=== PATIENT | male | born 1935 | race Caucasian/White ===

== ENCOUNTER → 2016-12-12 | Outpatient (REF) | payer MEDICARE, OTHER ==
[2016-12-12 17:50] LABS: ANION GAP 8 MEQ/L (8-16); BLOOD UREA NITROGEN 16 MG/DL (7-18); CALCIUM LEVEL 9.4 MG/DL (8.8-10.2); CARBON DIOXIDE LEVEL 28 MEQ/L (21-32); CHLORIDE LEVEL 104 MEQ/L (98-107); CREATININE FOR GFR 1.18 MG/DL (0.70-1.30); GLOMERULAR FILTRATION RATE > 60.0 (>42); GLUCOSE, FASTING 95 MG/DL (83-110); POTASSIUM SERUM 3.9 MEQ/L (3.5-5.1); SODIUM LEVEL 140 MEQ/L (136-145)
== END ==
LOC: M SFHCCAPE 09:43
PROVIDERS: ATTEND Family Medicine
DX: I48.0 Paroxysmal atrial fibrillation (principal); I11.9 Hypertensive heart disease without heart failure

== ENCOUNTER → 2017-02-27 | Outpatient (REF) | payer MEDICARE, OTHER ==
[~2017-02-27] MED LIST: ATOR40TA75 PO; CHLO125TA PO; DIGI1TAB3 PO; K-TA10TA2 PO; LISI-542 PO; METO1TAB32 PO; POTA10CA32 PO; SUPECAP24 PO; XARE20TA PO
[2017-02-27 18:43] LABS: ANION GAP 7 MEQ/L (8-16); BLOOD UREA NITROGEN 17 MG/DL (7-18); CALCIUM LEVEL 9.4 MG/DL (8.8-10.2); CARBON DIOXIDE LEVEL 30 MEQ/L (21-32); CHLORIDE LEVEL 103 MEQ/L (98-107); CREATININE FOR GFR 1.23 MG/DL (0.70-1.30); FREE T4 1.01 NG/DL (0.76-1.46); GLOMERULAR FILTRATION RATE > 60.0 (>42); GLUCOSE, FASTING 81 MG/DL (83-110); POTASSIUM SERUM 3.9 MEQ/L (3.5-5.1); SODIUM LEVEL 140 MEQ/L (136-145)
== END ==
LOC: M LABDRWCV 16:33
PROVIDERS: ATTEND Family Medicine
DX: I48.0 Paroxysmal atrial fibrillation (principal); I11.9 Hypertensive heart disease without heart failure

== ENCOUNTER → 2017-02-28 | Outpatient (CLI) | payer MEDICARE, OTHER ==
[~2017-02-28] VITALS: Ht 172.7 cm; Wt 78.5 kg
[~2017-02-28] MED LIST changes: +NS 1,000 ML IV ONE; +PROPOFOL 200 MG/20 ML VIAL As Ordered ONE
--- NOTE | 2017-02-28 13:06 | ROOR ---
Patient Name: Bam Almazan Procedure Date: 02/28/2017 12:44 PM Date of : 1935 Age: 81 Room: [facility] Gender: Male Note Status: Finalized Procedure: Total Colonoscopy to Cecum + Cold Snare Polypectomy Indications: High risk colon cancer surveillance: Personal history of colonic polyps, Last colonoscopy: 2010 Providers: Calixto Pratt MD Referring MD: Sonu Vergara MD Requesting Provider: Medicines: Monitored Anesthesia Care Complications: No immediate complications. Procedure: Pre-Anesthesia Assessment: - The heart rate, respiratory rate, oxygen saturations, blood pressure, adequacy of pulmonary ventilation, and response to care were monitored throughout the procedure. The Colonoscope was introduced through the anus and advanced to the cecum, identified by appendiceal orifice and ileocecal valve. The colonoscopy was performed without difficulty. The patient tolerated the procedure well. The quality of the bowel preparation was excellent. Findings: The perianal and digital rectal examinations were normal. Non-bleeding internal hemorrhoids were found during retroflexion. The hemorrhoids were small and Grade I (internal hemorrhoids that do not prolapse). Scattered small-mouthed diverticula were found in the recto-sigmoid colon, sigmoid colon and descending colon. Multiple sessile polyps were found in the ascending colon. The polyps were small in size. These polyps were removed with a cold snare. Resection and retrieval were complete. The exam was otherwise without abnormality on direct and retroflexion views. Impression: - Non-bleeding internal hemorrhoids. - Diverticulosis in the recto-sigmoid colon, in the sigmoid colon and in the descending colon. - Multiple small polyps in the ascending colon, removed with a cold snare. Resected and retrieved. - The examination was otherwise normal on direct and retroflexion views. - The exam was otherwise normal to the cecum. Recommendation: - Patient has a contact number available for emergencies. The signs and symptoms of potential delayed complications were discussed with the patient. Return to normal activities tomorrow. Written discharge instructions were provided to the patient. - Discharge patient to home. - Resume Xarelto (rivaroxaban) at prior dose today. - Await pathology results. - Telephone GI clinic for pathology results in 1 week. - Repeat colonoscopy for symptoms only. - Return to referring physician. - The findings and recommendations were discussed with the patient's family. Calixto Pratt MD Calixto Pratt MD 02/28/2017 1:05:54 PM This report has been signed electronically. Number of Addenda: 0 Note Initiated On: 02/28/2017 12:44 PM Estimated Blood Loss: Estimated blood loss: none.
[2017-02-28 13:30] VITALS: BP 130/80
== END ==
LOC: M OPP 11:57
PROVIDERS: ATTEND Internal Medicine Gastroenterology
DX: Z12.11 Encounter for screening for malignant neoplasm of colon (principal); Z86.010 Personal history of colon polyps; D12.2 Benign neoplasm of ascending colon; K64.0 First degree hemorrhoids; K57.30 Diverticulosis of large intestine without perforation or abscess without bleeding; I10 Essential (primary) hypertension; E78.00 Pure hypercholesterolemia, unspecified; Z79.899 Other long term (current) drug therapy; Z79.02 Long term (current) use of antithrombotics/antiplatelets

== ENCOUNTER 2017-06-16 21:37 | Emergency (ER) | payer MEDICARE, OTHER ==
[~2017-06-16] VITALS: Ht 172.7 cm; Wt 77.3 kg
[~2017-06-16 21:37] MED LIST changes: -DIGI1TAB3 PO; -NS 1,000 ML IV ONE; -POTA10CA32 PO; -PROPOFOL 200 MG/20 ML VIAL As Ordered ONE
[2017-06-16] MEDS ORDERED: METOPROLOL 5 MG/5 ML VIAL IV STA (21:51)
[2017-06-16] MEDS ORDERED: METOPROLOL TART 50 MG TAB PO ONE (22:00)
[2017-06-16 23:10] VITALS: BP 100/64
[2017-06-17] MEDS ORDERED: CHLO125TA PO ×2 (13:01→16:51)
[2017-06-17] MEDS ORDERED: LISI-542 PO (13:01)
[2017-06-17] MEDS ORDERED: POTA10CA32 PO (13:01)
[2017-06-17] MEDS ORDERED: DIGI1TAB3 PO (16:51)
--- NOTE | 2017-06-18 07:56 | ECGEPIP ---
Stationary ECG Study [facility] - ED Test Date: 2017-06-16 Pat Name: MARTINEZ HUYNH Department: Room: - Gender: M Road Tester: : 1935 Requested By: LISA CRISTOBAL Order Number: [id number] Reading MD: Mamta Zhang Measurements Intervals [place] Rate: 141 P: [place]: 0 QRS: 17 QRSD: 86 T: -5 QT: 273 QTc: 418 Interpretive Statements ATRIAL FIBRILLATION WITH RAPID VENTRICULAR RESPONSE NONSPECIFIC ST & T-WAVE ABNORMALITY ABNORMAL RHYTHM ECG 06/25/16 SINUS RHYTHM Electronically Signed On 06-18-2017 7:55:51 EDT by Mamta Zhang
--- NOTE | 2017-06-18 08:04 | ECGEPIP ---
Stationary ECG Study [facility] - ED Test Date: 2017-06-16 Pat Name: MARTINEZ HUYNH Department: Room: - Gender: M Sexton Helper: HarrisB: 1935 Requested By: LISA CRISTOBAL Order Number: [id number] Reading MD: Som Reardon Measurements Intervals [place] Rate: 92 P: [place]: 0 QRS: 0 QRSD: 83 T: 30 QT: 346 QTc: 430 Interpretive Statements ATRIAL FIBRILLATION NSTTW ABNORMALITIES RATE CHANGE COMPARED TO PRIOR ON SAME DATE Electronically Signed On 06-18-2017 8:04:20 EDT by Som Reardon
== END 2017-06-16 23:32 | disposition home or self-care (01) ==
LOC: M ED 21:37
DX: I48.91 Unspecified atrial fibrillation (principal); I10 Essential (primary) hypertension; E78.5 Hyperlipidemia, unspecified; Z79.01 Long term (current) use of anticoagulants; Z79.899 Other long term (current) drug therapy

== ENCOUNTER 2017-06-17 12:43 | Emergency (ER) | payer MEDICARE, OTHER ==
[~2017-06-17] VITALS: Ht 172.7 cm; Wt 77.3 kg
[2017-06-17] MEDS ORDERED: CHLO125TA PO ×2 (13:01→16:51)
[2017-06-17] MEDS ORDERED: LISI-542 PO (13:01)
[2017-06-17] MEDS ORDERED: POTA10CA32 PO (13:01)
[2017-06-17 13:09] LABS: BASO % 0.5 % (0.0-1.0); EOS # 0.1 10^3/uL (0.0-0.50); IMMATURE GRANULOCYTE % 0.3 % (0-0); LYMPH # 2.1 10^3/uL (1.5-4.5); LYMPH % 32.7 % (24.0-44.0); MEAN CORPUSCULAR HGB CONC 36.2 g/dl (32.0-36.5); MONO # 0.8 10^3/uL (0.0-0.8); NEUTROPHILS # 3.3 10^3/uL (1.8-7.7); NEUTROPHILS % 51.5 % (36.0-66.0); PLATELET COUNT, AUTOMATED 181 10^3/uL (150-450); RED CELL DISTRIBUTION WIDTH 12.8 % (11.5-14.5); WHITE BLOOD COUNT 6.5 10^3/uL (4.0-10.0)
[2017-06-17 13:22] LABS: INR 1.25
[2017-06-17 13:32] LABS: ALBUMIN 3.9 GM/DL (3.2-5.2); ALBUMIN/GLOBULIN RATIO 1.08 (1.00-1.93); ALKALINE PHOSPHATASE 86 U/L (45-117); ALT/SGPT 74 U/L (12-78); ANION GAP 7 MEQ/L (8-16); AST/SGOT 46 U/L (15-37); BILIRUBIN,DIRECT 0.4 MG/DL (0.0-0.2); BILIRUBIN,TOTAL 3.3 MG/DL (0.2-1.0); BLOOD UREA NITROGEN 19 MG/DL (7-18); CARBON DIOXIDE LEVEL 29 MEQ/L (21-32); CHLORIDE LEVEL 102 MEQ/L (98-107); CREATININE FOR GFR 1.23 MG/DL (0.70-1.30); FREE T4 0.94 NG/DL (0.76-1.46); GLOMERULAR FILTRATION RATE > 60.0 (>35); GLUCOSE, FASTING 111 MG/DL (83-110); POTASSIUM SERUM 3.6 MEQ/L (3.5-5.1); SODIUM LEVEL 138 MEQ/L (136-145); TOTAL PROTEIN 7.5 GM/DL (6.4-8.2)
--- NOTE | 2017-06-17 14:01 | REP ---
Portable chest x-ray: Single view. History: Chest pain. Comparison study: June 25, 2016. Findings: EKG monitoring electrodes overlie the chest. Heart is not enlarged. There is vascular calcification in the transverse aorta. There is a granulomatous calcification behind the right-sided EKG monitoring electrode terminus and there is jamaal calcification in a right paratracheal lymph node in the mediastinum. These findings are unchanged. The pleural angles are sharp. No infiltrate is seen. Impression: Old granulomatous changes. No acute disease. Signed by Jamal Li MD 06/17/2017 02:18 P
[2017-06-17] MEDS ORDERED: DIGOXIN 0.25 MG TAB PO STA (14:50)
[2017-06-17] MEDS ORDERED: DIGOXIN INJ 0.5 MG/2 ML AMP (J1160) IV ONE (15:00)
[2017-06-17] MEDS ORDERED: DIGI1TAB3 PO (16:51)
[2017-06-17 17:04] VITALS: BP 138/87
--- NOTE | 2017-06-18 08:05 | ECGEPIP ---
Stationary ECG Study [facility] - ED Test Date: 2017-06-17 Pat Name: MARTINEZ HUYNH Department: Room: - Gender: M Television Repairman: : 1935 Requested By: Som Oquendo Order Number: [id number] Reading MD: Som Reardon Measurements Intervals [place] Rate: 97 P: [place]: 0 QRS: 4 QRSD: 87 T: 64 QT: 333 QTc: 424 Interpretive Statements ATRIAL FIBRILLATION NONSPECIFIC ST & T-WAVE ABNORMALITY SIMILAR TO 06/16/17 Electronically Signed On 06-18-2017 8:05:01 EDT by Som Reardon
== END 2017-06-17 17:08 | disposition home or self-care (01) ==
LOC: M ED 12:43
DX: I48.2 Chronic atrial fibrillation (principal); J44.9 Chronic obstructive pulmonary disease, unspecified; I10 Essential (primary) hypertension; Z87.891 Personal history of nicotine dependence
CPT/HCPCS: 71010; 80048; 80076; 82550; 82553; 83690; 83880; 84439; 84443; 84484; 85025; 85610; 85730; 93005; 93041; 94760; 96374; 99284; J1160

== ENCOUNTER → 2017-07-04 | Outpatient (REF) | payer MEDICARE, OTHER ==
[~2017-07-04] MED LIST changes: +DIGI1TAB3 PO; +POTA10CA32 PO
[2017-07-04 19:01] LABS: MEAN CORPUSCULAR HEMOGLOBIN 31.9 pg (27.0-33.0); MEAN CORPUSCULAR HGB CONC 34.5 g/dl (32.0-36.5); MEAN CORPUSCULAR VOLUME 92.6 fl (80.0-96.0); PLATELET COUNT, AUTOMATED 176 10^3/uL (150-450); RED CELL DISTRIBUTION WIDTH 13.1 % (11.5-14.5); WHITE BLOOD COUNT 5.5 10^3/uL (4.0-10.0)
[2017-07-04 20:14] LABS: ALBUMIN/GLOBULIN RATIO 1.48 (1.00-1.93); ALKALINE PHOSPHATASE 73 U/L (45-117); ALT/SGPT 81 U/L (12-78); ANION GAP 5 MEQ/L (8-16); AST/SGOT 51 U/L (7-37); BILIRUBIN,TOTAL 2.9 MG/DL (0.2-1.0); BLOOD UREA NITROGEN 15 MG/DL (7-18); CALCIUM LEVEL 9.3 MG/DL (8.8-10.2); CARBON DIOXIDE LEVEL 33 MEQ/L (21-32); CHLORIDE LEVEL 100 MEQ/L (98-107); CHOLESTEROL LEVEL 130 MG/DL (<200); CREATININE FOR GFR 1.19 MG/DL (0.70-1.30); GLOMERULAR FILTRATION RATE > 60.0 (>35); GLUCOSE, FASTING 95 MG/DL (83-110); POTASSIUM SERUM 3.5 MEQ/L (3.5-5.1); SODIUM LEVEL 138 MEQ/L (136-145); TOTAL PROTEIN 6.7 GM/DL (6.4-8.2); TRIGLYCERIDES LEVEL 118 MG/DL (<150)
== END ==
LOC: M SFHCCAPE 08:45
PROVIDERS: ATTEND Family Medicine
DX: I48.0 Paroxysmal atrial fibrillation (principal); E78.2 Mixed hyperlipidemia

== ENCOUNTER → 2018-01-08 | Outpatient (REF) | payer MEDICARE, OTHER ==
[2018-01-08 17:47] LABS: ALBUMIN 4.2 GM/DL (3.2-5.2); ALKALINE PHOSPHATASE 89 U/L (45-117); ALT/SGPT 63 U/L (12-78); ANION GAP 5 MEQ/L (8-16); AST/SGOT 43 U/L (7-37); BILIRUBIN,TOTAL 3.4 MG/DL (0.2-1.0); BLOOD UREA NITROGEN 21 MG/DL (7-18); CALCIUM LEVEL 9.3 MG/DL (8.8-10.2); CARBON DIOXIDE LEVEL 32 MEQ/L (21-32); CHLORIDE LEVEL 104 MEQ/L (98-107); CREATININE FOR GFR 1.25 MG/DL (0.70-1.30); GLOMERULAR FILTRATION RATE 59.2 (>35); GLUCOSE, FASTING 84 MG/DL (70-100); SODIUM LEVEL 141 MEQ/L (136-145); TOTAL PROTEIN 7.2 GM/DL (6.4-8.2)
== END ==
LOC: M SFHCCAPE 08:30
DX: I11.9 Hypertensive heart disease without heart failure (principal); R74.9 Abnormal serum enzyme level, unspecified
CPT/HCPCS: 80053

== ENCOUNTER → 2018-07-10 | Outpatient (REF) | payer MEDICARE, OTHER ==
[2018-07-10 17:05] LABS: HEMATOCRIT 44.7 % (42.0-52.0); HEMOGLOBIN 15.2 g/dl (13.5-17.5); MEAN CORPUSCULAR HEMOGLOBIN 32.1 pg (27.0-33.0); MEAN CORPUSCULAR VOLUME 94.5 fl (80.0-96.0); PLATELET COUNT, AUTOMATED 155 10^3/uL (150-450); RED BLOOD COUNT 4.73 10^6/uL (4.30-6.10); RED CELL DISTRIBUTION WIDTH 12.4 % (11.5-14.5); WHITE BLOOD COUNT 5.4 10^3/uL (4.0-10.0)
[2018-07-10 17:17] LABS: ALBUMIN/GLOBULIN RATIO 1.48 (1.00-1.93); ALKALINE PHOSPHATASE 87 U/L (45-117); ALT/SGPT 62 U/L (12-78); ANION GAP 7 MEQ/L (8-16); AST/SGOT 44 U/L (7-37); BILIRUBIN,TOTAL 3.2 MG/DL (0.2-1.0); BLOOD UREA NITROGEN 17 MG/DL (7-18); CALCIUM LEVEL 9.2 MG/DL (8.8-10.2); CARBON DIOXIDE LEVEL 28 MEQ/L (21-32); CHLORIDE LEVEL 104 MEQ/L (98-107); CHOLESTEROL LEVEL 122 MG/DL (<200); CHOLESTEROL RISK RATIO 2.904 (<5); CREATININE FOR GFR 1.25 MG/DL (0.70-1.30); FREE T4 0.96 NG/DL (0.76-1.46); GLUCOSE, FASTING 84 MG/DL (70-100); HDL CHOLESTEROL 42 MG/DL (>40); LDL CHOLESTEROL 50 MG/DL (<100); NON-HDL-C 80 MG/DL; POTASSIUM SERUM 4.3 MEQ/L (3.5-5.1); SODIUM LEVEL 139 MEQ/L (136-145); TOTAL PROTEIN 6.7 GM/DL (6.4-8.2); TRIGLYCERIDES LEVEL 150 MG/DL (<150)
== END ==
LOC: M SFHCCAPE 07:56
DX: I48.0 Paroxysmal atrial fibrillation (principal); E78.2 Mixed hyperlipidemia; G25.0 Essential tremor
CPT/HCPCS: 84443

== ENCOUNTER 2018-08-19 05:22 | Emergency (ER) | payer MEDICARE, OTHER ==
[2018-08-19 05:56] LABS: BASO % 0.6 % (0.0-1.0); EOS # 0.2 10^3/uL (0.0-0.50); EOS % 3.3 % (0.0-3.0); HEMATOCRIT 50.4 % (42.0-52.0); HEMOGLOBIN 17.7 g/dl (13.5-17.5); IMMATURE GRANULOCYTE % 0.6 % (0-3.0); LYMPH # 2.3 10^3/uL (1.5-4.5); LYMPH % 32.8 % (24.0-44.0); MEAN CORPUSCULAR HEMOGLOBIN 32.7 pg (27.0-33.0); MEAN CORPUSCULAR HGB CONC 35.1 g/dl (32.0-36.5); MEAN CORPUSCULAR VOLUME 93.2 fl (80.0-96.0); MONO # 0.8 10^3/uL (0.0-0.8); MONO % 11.3 % (0.0-5.0); NEUTROPHILS # 3.5 10^3/uL (1.8-7.7); NEUTROPHILS % 51.4 % (36.0-66.0); PLATELET COUNT, AUTOMATED 171 10^3/uL (150-450); RED BLOOD COUNT 5.41 10^6/uL (4.30-6.10); RED CELL DISTRIBUTION WIDTH 12.6 % (11.5-14.5); WHITE BLOOD COUNT 6.9 10^3/uL (4.0-10.0)
[2018-08-19] MEDS: METOPROLOL 5 MG/5 ML VIAL IV ×2 (05:57→06:15)
[2018-08-19 06:15] LABS: ANION GAP 9 MEQ/L (8-16); BLOOD UREA NITROGEN 21 MG/DL (7-18); CARBON DIOXIDE LEVEL 25 MEQ/L (21-32); CHLORIDE LEVEL 107 MEQ/L (98-107); CPK CREATINE PHOSPHOKINASE 195 U/L (39-308); CREATININE FOR GFR 1.22 MG/DL (0.70-1.30); FREE T4 1.02 NG/DL (0.76-1.46); GLOMERULAR FILTRATION RATE > 60.0 (>35); GLUCOSE, FASTING 101 MG/DL (70-100); MAGNESIUM LEVEL 2.1 MG/DL (1.8-2.4); MB/CK RELATIVE INDEX 1.74 (< OR =4); POTASSIUM SERUM 4.2 MEQ/L (3.5-5.1); SODIUM LEVEL 141 MEQ/L (136-145); TROPONIN I < 0.02 NG/ML (< 0.10)
[2018-08-19] MEDS: METOPROLOL TART 25 MG TABLET PO (06:40)
== END 2018-08-19 06:55 | disposition home or self-care (01) ==
LOC: M ED 05:22
DX: I48.91 Unspecified atrial fibrillation (principal); Z79.899 Other long term (current) drug therapy; Z79.01 Long term (current) use of anticoagulants

== ENCOUNTER 2018-08-19 20:02 | Observation (INO) | payer MEDICARE, OTHER ==
[2018-08-19 20:47] LABS: BASO % 0.3 % (0.0-1.0); EOS # 0.2 10^3/uL (0.0-0.50); EOS % 2.7 % (0.0-3.0); HEMATOCRIT 48.5 % (42.0-52.0); HEMOGLOBIN 16.9 g/dl (13.5-17.5); IMMATURE GRANULOCYTE % 0.4 % (0-3.0); LYMPH # 2.2 10^3/uL (1.5-4.5); LYMPH % 31.6 % (24.0-44.0); MEAN CORPUSCULAR HEMOGLOBIN 32.6 pg (27.0-33.0); MEAN CORPUSCULAR HGB CONC 34.8 g/dl (32.0-36.5); MEAN CORPUSCULAR VOLUME 93.6 fl (80.0-96.0); MONO # 0.9 10^3/uL (0.0-0.8); MONO % 12.2 % (0.0-5.0); NEUTROPHILS # 3.7 10^3/uL (1.8-7.7); NEUTROPHILS % 52.8 % (36.0-66.0); PLATELET COUNT, AUTOMATED 166 10^3/uL (150-450); RED BLOOD COUNT 5.18 10^6/uL (4.30-6.10); RED CELL DISTRIBUTION WIDTH 12.6 % (11.5-14.5); WHITE BLOOD COUNT 6.9 10^3/uL (4.0-10.0)
[2018-08-19] MEDS: METOPROLOL 5 MG/5 ML VIAL IV ×3 (20:50→21:01)
[2018-08-19 21:12] LABS: ALBUMIN 3.8 GM/DL (3.2-5.2); ALBUMIN/GLOBULIN RATIO 1.23 (1.00-1.93); ALKALINE PHOSPHATASE 100 U/L (45-117); ALT/SGPT 60 U/L (12-78); ANION GAP 9 MEQ/L (8-16); AST/SGOT 36 U/L (7-37); BILIRUBIN,DIRECT 0.4 MG/DL (0.0-0.2); BILIRUBIN,TOTAL 2.2 MG/DL (0.2-1.0); BLOOD UREA NITROGEN 22 MG/DL (7-18); CALCIUM LEVEL 8.7 MG/DL (8.8-10.2); CARBON DIOXIDE LEVEL 26 MEQ/L (21-32); CHLORIDE LEVEL 107 MEQ/L (98-107); CPK CREATINE PHOSPHOKINASE 158 U/L (39-308); CREATININE FOR GFR 1.18 MG/DL (0.70-1.30); GLOMERULAR FILTRATION RATE > 60.0 (>35); GLUCOSE, FASTING 141 MG/DL (70-100); MB/CK RELATIVE INDEX 2.34 (< OR =4); NT-PRO BNP 1858 PG/ML (<450); POTASSIUM SERUM 4.2 MEQ/L (3.5-5.1); SODIUM LEVEL 142 MEQ/L (136-145); TOTAL PROTEIN 6.9 GM/DL (6.4-8.2); TROPONIN I < 0.02 NG/ML (< 0.10)
[2018-08-19] MEDS: METOPROLOL TART 25 MG TABLET PO (21:14)
[2018-08-19] MEDS: AMIODARONE HCL 150 MG in APPROPRIATE DILUENT 1 EA IV ×2 (22:30→23:46)
[2018-08-19] MEDS ORDERED: ACETAMINOPHEN TAB 650MG DOSE (2X325MG) PO (23:00)
[2018-08-20 01:06] LABS: CPK CREATINE PHOSPHOKINASE 134 U/L (39-308); MB/CK RELATIVE INDEX 2.31 (< OR =4); TROPONIN I 0.02 NG/ML (< 0.10)
[2018-08-20 05:57] LABS: HEMATOCRIT 46.2 % (42.0-52.0); HEMOGLOBIN 15.8 g/dl (13.5-17.5); MEAN CORPUSCULAR HGB CONC 34.2 g/dl (32.0-36.5); MEAN CORPUSCULAR VOLUME 93.7 fl (80.0-96.0); PLATELET COUNT, AUTOMATED 152 10^3/uL (150-450); RED BLOOD COUNT 4.93 10^6/uL (4.30-6.10); RED CELL DISTRIBUTION WIDTH 12.6 % (11.5-14.5); WHITE BLOOD COUNT 7.2 10^3/uL (4.0-10.0)
[2018-08-20 06:36] LABS: ANION GAP 8 MEQ/L (8-16); BLOOD UREA NITROGEN 20 MG/DL (7-18); CALCIUM LEVEL 8.4 MG/DL (8.8-10.2); CARBON DIOXIDE LEVEL 24 MEQ/L (21-32); CHLORIDE LEVEL 110 MEQ/L (98-107); CPK CREATINE PHOSPHOKINASE 118 U/L (39-308); CREATININE FOR GFR 1.12 MG/DL (0.70-1.30); FREE THYROXINE INDEX 2.5 % (1.4-3.8); GLOMERULAR FILTRATION RATE > 60.0 (>35); GLUCOSE, FASTING 106 MG/DL (70-100); POTASSIUM SERUM 4.3 MEQ/L (3.5-5.1); SODIUM LEVEL 142 MEQ/L (136-145); T UPTAKE 38 % (33-40); THYROXINE (T4) 6.5 UG/DL (4.5-12.0); TROPONIN I < 0.02 NG/ML (< 0.10)
[2018-08-20] MEDS: LISINOPRIL 5 MG TAB PO (08:23)
[2018-08-20] MEDS: METOPROLOL SUCC *XL* 25MG TAB (TopROL *XL*) PO ×2 (08:24→10:53)
[2018-08-20] MEDS ORDERED: METOPROLOL SUCC (TopROL XL) 50MG **XL** TAB PO (09:45)
[2018-08-20] MEDS: AMIODARONE 200 MG TAB (PACERONE) PO ×2 (10:04→16:00)
[2018-08-20 15:37] LABS: CPK CREATINE PHOSPHOKINASE 101 U/L (39-308); MB/CK RELATIVE INDEX 2.28 (< OR =4); TROPONIN I < 0.02 NG/ML (< 0.10)
[2018-08-20] MEDS: RIVAROXABAN 20 MG TAB (XARELTO) PO (17:18)
[2018-08-20] MEDS: ATORVASTATIN 20 MG TAB PO (17:18)
[2018-08-21 05:59] LABS: BASO % 0.3 % (0.0-1.0); EOS # 0.2 10^3/uL (0.0-0.50); EOS % 3.5 % (0.0-3.0); HEMATOCRIT 42.8 % (42.0-52.0); HEMOGLOBIN 14.7 g/dl (13.5-17.5); IMMATURE GRANULOCYTE % 0.2 % (0-3.0); LYMPH # 1.9 10^3/uL (1.5-4.5); LYMPH % 31.6 % (24.0-44.0); MEAN CORPUSCULAR HEMOGLOBIN 32.4 pg (27.0-33.0); MEAN CORPUSCULAR HGB CONC 34.3 g/dl (32.0-36.5); MEAN CORPUSCULAR VOLUME 94.3 fl (80.0-96.0); MONO # 0.7 10^3/uL (0.0-0.8); NEUTROPHILS # 3.2 10^3/uL (1.8-7.7); NEUTROPHILS % 53.4 % (36.0-66.0); PLATELET COUNT, AUTOMATED 139 10^3/uL (150-450); RED BLOOD COUNT 4.54 10^6/uL (4.30-6.10); RED CELL DISTRIBUTION WIDTH 12.7 % (11.5-14.5); WHITE BLOOD COUNT 5.9 10^3/uL (4.0-10.0)
[2018-08-21 06:25] LABS: ALBUMIN 3.3 GM/DL (3.2-5.2); ALBUMIN/GLOBULIN RATIO 1.22 (1.00-1.93); ALKALINE PHOSPHATASE 68 U/L (45-117); ALT/SGPT 50 U/L (12-78); ANION GAP 7 MEQ/L (8-16); AST/SGOT 30 U/L (7-37); BLOOD UREA NITROGEN 21 MG/DL (7-18); CALCIUM LEVEL 8.5 MG/DL (8.8-10.2); CARBON DIOXIDE LEVEL 28 MEQ/L (21-32); CHLORIDE LEVEL 106 MEQ/L (98-107); CREATININE FOR GFR 1.33 MG/DL (0.70-1.30); GLOMERULAR FILTRATION RATE 54.9 (>35); GLUCOSE, FASTING 91 MG/DL (70-100); POTASSIUM SERUM 4.6 MEQ/L (3.5-5.1); SODIUM LEVEL 141 MEQ/L (136-145)
[2018-08-21] MEDS: LISINOPRIL 5 MG TAB PO (08:38)
[2018-08-21] MEDS: METOPROLOL SUCC (TopROL XL) 50MG **XL** TAB PO (08:38)
== END 2018-08-21 12:15 | disposition home or self-care (01) ==
LOC: M PCU 08-20 18:09 → M ED 20:02 → M ED INP 22:59
DX: I48.0 Paroxysmal atrial fibrillation (principal); E78.5 Hyperlipidemia, unspecified; I10 Essential (primary) hypertension; Z79.01 Long term (current) use of anticoagulants; Z79.899 Other long term (current) drug therapy
CPT/HCPCS: 71045

== ENCOUNTER → 2018-08-30 | Outpatient (REF) | payer MEDICARE, OTHER ==
[~2018-08-30] MED LIST changes: +AMIO200T PO; +ARTI99.0 OU
[2018-08-30 19:27] LABS: ALBUMIN 3.8 GM/DL (3.2-5.2); BILIRUBIN,TOTAL 2.7 MG/DL (0.2-1.0); CALCIUM LEVEL 9.1 MG/DL (8.8-10.2); CREATININE FOR GFR 1.41 MG/DL (0.70-1.30); GLOMERULAR FILTRATION RATE 51.4 (>35); POTASSIUM SERUM 4.3 MEQ/L (3.5-5.1); TOTAL PROTEIN 6.6 GM/DL (6.4-8.2)
== END ==
LOC: M SFHCADAM 13:57
PROVIDERS: ATTEND Physician Assistant
DX: I48.0 Paroxysmal atrial fibrillation (principal); I11.9 Hypertensive heart disease without heart failure
CPT/HCPCS: 80053; 99496; G0463

== ENCOUNTER → 2018-09-30 | Outpatient (REF) | payer MEDICARE, OTHER ==
[2018-09-30 17:19] LABS: ALBUMIN 3.9 GM/DL (3.2-5.2); CALCIUM LEVEL 8.7 MG/DL (8.8-10.2); CREATININE FOR GFR 1.51 MG/DL (0.70-1.30); GLOMERULAR FILTRATION RATE 47.5 (>35); PHOSPHORUS LEVEL 3.3 MG/DL (2.5-4.9); POTASSIUM SERUM 4.3 MEQ/L (3.5-5.1)
== END ==
LOC: M LAB REF 16:21
PROVIDERS: ATTEND Physician Assistant
DX: I48.0 Paroxysmal atrial fibrillation (principal)

== ENCOUNTER → 2018-10-17 | Outpatient (REF) | payer MEDICARE, OTHER | LOC: M LAB REF 16:33 | PROVIDERS: ATTEND Surgery | DX: C44.722 Squamous cell carcinoma of skin of right lower limb, including hip (principal) | CPT/HCPCS: 88305; G0463 ==

== ENCOUNTER → 2018-11-14 | Outpatient (REF) | payer MEDICARE, OTHER | LOC: M LABDRAW1 15:30 | PROVIDERS: ATTEND Surgery | DX: C44.729 Squamous cell carcinoma of skin of left lower limb, including hip (principal) ==

== ENCOUNTER → 2019-01-12 | Outpatient (CLI) | payer MEDICARE, OTHER ==
--- NOTE | 2019-01-15 08:57 | SLEEPCENT ---
DATE OF PROCEDURE: 01/12/2019 ORDERED BY: Liz Liu Nocturnal polysomnography was performed for evaluation of sleep physiology in this patient with a history of excessive somnolence and nonrestorative sleep. 8 hours and 4 minutes of data were reviewed. There were 303 minutes of sleep identified. Sleep latency was normal at 26 minutes. Rapid eye movement (REM) sleep was delayed at 149 minutes. Sleep architecture showed fragmentation and some poor progression. There were 2 REM cycles. Overall sleep efficiency was 63%. The patient's electrocardiogram showed a supraventricular rhythm with an average heart rate of 58 beats per minute. Electroencephalogram (EEG) showed normal waveforms for awake and sleep. There were 124 respiratory events identified of 10 seconds in duration or greater for an apnea-hypopnea index of 24.6. The events were primarily obstructive, though 40 central and mixed apneas were seen. Arousals from respiratory events occurred 19.2 times per hour and oxygen desaturations were seen into the low 80s. There was some limb activity, but arousals from limb events were few. IMPRESSION: Obstructive sleep apnea syndrome (G47.33). Apnea-hypopnea index 24.6. RECOMMENDATION: The patient should be encouraged to return to the sleep disorder center for pressure therapy. In the interim, alcohol and sedative avoidance should be practiced and caution exercised during the operation of motor vehicles.
== END ==
LOC: M SLEEP 20:00
PROVIDERS: ATTEND Nurse Practitioner Family
DX: G47.33 Obstructive sleep apnea (adult) (pediatric) (principal)

== ENCOUNTER 2019-02-16 22:28 | Inpatient (IN) | payer MEDICARE, OTHER ==
[~2019-02-16] VITALS: Ht 172.7 cm; Wt 76.4 kg
[2019-02-16 23:19] LABS: BASO % 0.3 % (0.0-1.0); EOS # 0.1 10^3/uL (0.0-0.50); EOS % 2.2 % (0.0-3.0); HEMATOCRIT 47.5 % (42.0-52.0); HEMOGLOBIN 16.8 g/dl (13.5-17.5); LYMPH # 1.9 10^3/uL (1.5-4.5); LYMPH % 29.5 % (24.0-44.0); MEAN CORPUSCULAR HEMOGLOBIN 32.9 pg (27.0-33.0); MEAN CORPUSCULAR HGB CONC 35.4 g/dl (32.0-36.5); MONO # 0.8 10^3/uL (0.0-0.8); MONO % 12.2 % (0.0-5.0); NEUTROPHILS # 3.5 10^3/uL (1.8-7.7); NEUTROPHILS % 55.6 % (36.0-66.0); PLATELET COUNT, AUTOMATED 181 10^3/uL (150-450); RED BLOOD COUNT 5.11 10^6/uL (4.30-6.10); WHITE BLOOD COUNT 6.3 10^3/uL (4.0-10.0)
[2019-02-16 23:29] LABS: INR 2.16; PROTHROMBIN TIME 24.5 SECONDS (12.1-14.4)
[2019-02-16 23:30] LABS: PARTIAL THROMBOPLASTIN TIME 50.5 SECONDS (25.4-37.6)
[2019-02-16] MEDS ORDERED: METOPROLOL 5 MG/5 ML VIAL IV SCH (23:30)
[2019-02-16 23:41] LABS: ALT/SGPT 52 U/L (12-78); BILIRUBIN,DIRECT 0.5 MG/DL (0.0-0.2); BILIRUBIN,TOTAL 2.6 MG/DL (0.2-1.0); BLOOD UREA NITROGEN 19 MG/DL (7-18); CALCIUM LEVEL 9.3 MG/DL (8.8-10.2); CARBON DIOXIDE LEVEL 24 MEQ/L (21-32); CHLORIDE LEVEL 109 MEQ/L (98-107); CK-MB VALUE MASS 4.4 NG/ML (<3.6); CPK CREATINE PHOSPHOKINASE 218 U/L (39-308); CREATININE FOR GFR 1.09 MG/DL (0.70-1.30); FREE T4 1.14 NG/DL (0.76-1.46); GLOMERULAR FILTRATION RATE > 60.0 (>35); GLUCOSE, FASTING 100 MG/DL (70-100); LIPASE 168 U/L (73-393); MB/CK RELATIVE INDEX 2.02 (< OR =4); POTASSIUM SERUM 4.2 MEQ/L (3.5-5.1); SODIUM LEVEL 141 MEQ/L (136-145); TOTAL PROTEIN 7.2 GM/DL (6.4-8.2); TROPONIN I < 0.02 NG/ML (< 0.10)
[2019-02-17] VITALS (7 sets, daily range): BP systolic 106–155; BP diastolic 56–74; PULSE 59
[2019-02-17] MEDS ORDERED: METOPROLOL TART 25 MG TABLET PO ONE
[2019-02-17 00:10] LABS: MAGNESIUM LEVEL 2.3 MG/DL (1.8-2.4)
[2019-02-17] MEDS ORDERED: MIDAZOLAM INJ 2 MG/2 ML VIAL (J2250) IV STA (00:47)
[2019-02-17] MEDS ORDERED: MIDAZOLAM INJ 2 MG/2 ML VIAL (J2250) As Ordered ONE ×2 (00:48→17:12)
[2019-02-17] MEDS ORDERED: ONDANSETRON 4MG/2ML VIAL (J2405) IV ONE (02:00)
[2019-02-17] MEDS ORDERED: LISI10TA4 PO (02:48)
[2019-02-17] MEDS ORDERED: LR 1,000 ML IV SCH (03:45)
--- NOTE | 2019-02-17 05:58 | ECGEPIP ---
[facility] - ED Test Date: 2019-02-16 Pat Name: MARTINEZ HUYNH Department: Room: - Gender: Male Security Services Specialist: JOVON : 1935 Requested By: ANDRES Melgar Order Number: [id number] Reading MD: Som Reardon Measurements Intervals [place] Rate: 139 P: [place]: -1 QRS: QRSD: 86 T: 21 QT: 262 QTc: 399 Interpretive Statements ATRIAL FLUTTER WITH RAPID VENTRICULAR RESPONSE PROBABLE INFERIOR MYOCARDIAL INFARCTION, PROBABLY OLD RHYTHM/RATE CHANGE COMPARED TO 08/20/18 Electronically Signed on 02-17-2019 5:58:40 EDT by Som Reardon
--- NOTE | 2019-02-17 06:05 | ECGEPIP ---
[facility] - ED Test Date: 2019-02-17 Pat Name: MARTINEZ HUYNH Department: Room: - Gender: Male Eap Counselor: kk : 1935 Requested By: ANDRES Melgar Order Number: [id number] Reading MD: Som Reardon Measurements Intervals [place] Rate: 57 P: 69 SC: 214 QRS: 4 QRSD: 90 T: 22 QT: 389 QTc: 381 Interpretive Statements SINUS BRADYCARDIA WITH FIRST DEGREE AV BLOCK POOR R WAVE PROGRESSION BENIGN EARLY REPOLARIZATION RHYTHM/RATE CHANGE COMPARED TO 02/16/19 Electronically Signed on 02-17-2019 6:05:07 EDT by Som Reardon
--- NOTE | 2019-02-17 07:12 | REP ---
Portable chest, 11:30 p.m., single AP upright view: Comparison is 08/19/2018. The lung marley are clear. The cardiac size is normal. The dashawn, mediastinum, and skeletal structures are unremarkable. Impression: Negative portable chest. There is no interval change. Electronically Signed by Charlie Hayden MD 02/17/2019 07:04 A
--- NOTE | 2019-02-17 07:47 | REP ---
Portable chest, 01:56 a.m., single AP upright view, post pacemaker placement: The comparison is a 06/25/2016 and 02/16/2019. There is a right IJ pacemaker with the tip in satisfactory location as identified on this single view. There are no acute infiltrates or pleural effusions. Cardiac size is normal. There are calcified right paratracheal nodes, unchanged. There is a stable granuloma in the right lung, unchanged. The There is no pneumothorax. Electronically Signed by Charlie Hayden MD 02/17/2019 07:37 A
--- NOTE | 2019-02-17 14:51 | RO ---
DATE OF PROCEDURE: 02/17/2019 PROCEDURE: Urgent transvenous temporary pacemaker insertion at 01:45 hrs. IMPLANTING SKIN PASS OPERATOR: Dr. Edward Pedro TYPE OF ANESTHESIA: Local anesthesia. INDICATION: 1. Recurrent cardiac asystole requiring external chest compression. 2. Intolerance of transcutaneous noninvasive pacing system. CLINICAL SUMMARY: This 82-year-old gentleman with documented hypertensive heart disease complicated by paroxysmal atrial fibrillation. Has been referred in the past to Dr. Oanh Tang, lacrosse player, and radiofrequency ablation was discussed. Presented to [facility] August 19, 2018, with last bout having rapid ventricular response. Negative chronotropic medication adjusted and started on antiarrhythmic but not tolerated. Follow up appointment October 01, 2018, EKG documented junctional bradycardia at 47 beats per minute and pacemaker implantation was advised. The patient was considering options continuing to have daily nonsustained rapid palpitations, up to 4 hour duartion without seeking medical attention.remaining on Xarelto anticoagulant therapy alone. Presented to the emergency room at 10:44 PM February having had sustained rapid palpitations since 4 PM. Upon his arrival he was in atrial fibrillation with rapid ventricular response averaging 140-160 bpm. Given one dose of metoprolol 5 mg IV and 25 mg by mouth, with ventricular response slowing to approximately 120 prior to conversion to sinus rhythm at 00:15 AM. Upon his conversion, he had minimal lightheadedness associated with a 6 second pause of cardiac asystole. This was followed by sinus bradycardia in the 50s. At approximately 1:30 AM while being monitored, had a more prolonged bout of cardiac asystole with syncope requiring external chest compression. A transcutaneous pacemaker was applied but the patient did not tolerate the amount of energy required to capture his heart. Following a brief explanation of the procedure, we promptly started with implantation of a transvenous temporary pacing system. DESCRIPTION OF PROCEDURE: The right side of his neck was prepped and draped in the usual fashion. The skin was infiltrated with 1% Xylocaine. The right internal jugular vein was then catheterized using the Seldinger technique. A 6 [place] introducer catheter was inserted without difficulty and the side port was aspirated and flushed without a problem. A 5 [place] bipolar balloon flotation catheter was then advanced under EKG control to the right ventricle. At approximately 34 cm his intracardiac R wave amplitude measured 10 mV. His pacing threshold was less than 0.5 mA. Temporary pulse generator settings were left at a low rate of 50, pacing output of 5.0 mA and full demand. The introducer catheter was sutured in position and the catheter itself was covered with a sterile plastic sleeve. An OpSite dressing was applied to the insertion site. A postprocedure portable upright chest x-ray showed good wire position inside the right ventricle with no pneumothorax. The patient tolerated the procedure well. No apparent complications. 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 AISHA
[2019-02-17] MEDS ORDERED: LIDOCAINE 1% SDV INJ 30 ML VIAL As Ordered ONE (15:02)
[2019-02-17] MEDS ORDERED: ISOVUE-300 61% 50ML VIAL (Q9967) As Ordered ONE (15:02)
[2019-02-17] MEDS ORDERED: AMIODARONE 150MG/3ML INJ (J0282) As Ordered ONE (15:03)
[2019-02-17] MEDS ORDERED: BACITRACIN PWD 50,000 UNITS VIAL As Ordered ONE (15:03)
[2019-02-17] MEDS ORDERED: ceFAZolin 2 GM/D5W 50 ML IV BAG (J0690 PER 500MG) As Ordered ONE (17:09)
[2019-02-17] MEDS ORDERED: ONDANSETRON 4MG/2ML VIAL (J2405) As Ordered ONE (17:12)
[2019-02-17] MEDS ORDERED: PROPOFOL 200 MG/20 ML VIAL As Ordered ONE (17:12)
[2019-02-17] MEDS ORDERED: fentaNYL 100 MCG/2 ML INJECTION (J3010) As Ordered ONE (17:12)
[2019-02-17] MEDS ORDERED: LIDOCAINE 2% INJ 100 MG/5 ML SDV (FOR ANES.) As Ordered ONE (17:12)
[2019-02-17] MEDS ORDERED: KETAMINE HCL 200 MG/20 ML VIAL As Ordered ONE (17:41)
[2019-02-17] MEDS ORDERED: RIVAROXABAN 20 MG TAB (XARELTO) PO SCH (18:00)
[2019-02-17] MEDS ORDERED: POLYVINYL ALCOHOL OPHTH SOLN 15 ML(LIQUITEARS) OU PRN (18:30)
--- NOTE | 2019-02-17 18:45 | REP ---
Portable chest, 06:33 p.m., single AP view with the patient upright: Comparison is 2018 at 01:56 a.m.. There has been interval placement of a left subclavian dual chamber pacemaker with the pacing tips in satisfactory locations. There are skin jesse adjacent to the pacemaker power plantar. The previous temporary pacemaker tip has been retracted into a right IJ sheath. There is no pneumothorax on the left on the right. There are no pleural fluid collections. Lung marley are clear. Cardiac size is normal. Calcified right paratracheal nodes and stable right lung granuloma are again identified, unchanged. Electronically Signed by Charlie Hayden MD 02/17/2019 06:36 P
--- NOTE | 2019-02-17 18:53 | IPN ---
DATE: 02/17/2019 SUBJECTIVE: The patient is seen at bedside in the intensive care unit (ICU). He states he is doing well this morning, he is just sore on the right side of his chest where he received chest compressions last night after going into cardiac asystole. He denies any shortness of breath, palpitations, leg swelling, left-sided chest pain, or diaphoresis. He denies any fevers or chills. He states other than the soreness in the right side of his chest, he feels fine today. PHYSICAL EXAMINATION: Vital Signs: Temperature 98.4, pulse 86 and irregular, respiratory rate 18, blood pressure 121/64 with a mean arterial pressure (MAP) of 83, pulse oximetry is 98% on room air. General: Elderly male in no acute distress, lying in bed in the ICU. He is pleasant and cooperative. HEENT: Sclerae are anicteric and conjunctivae are pink without pallor. Tongue is midline and mucous membranes are moist. Neck: Trachea is midline, supple. No jugular venous distention (JVD) is appreciated. Temporary transvenous pacemaker is noted in the right internal jugular (IJ). Dressing is clean and intact without erythema or discharge. Lungs: Clear to auscultation bilaterally. No wheezes, rhonchi, or rales. Cardiovascular: Irregular rhythm, rate controlled at approximately 84 beats per minute. I do not appreciate any murmurs, gallops or rubs. Pulses are regular and symmetric bilaterally. There is no lower leg edema. Abdomen: Normoactive bowel sounds, soft, nontender to palpation. Extremities: No splinter hemorrhages, clubbing, cyanosis, or edema bilaterally. Neurologic: Alert and oriented to person, place and time. Answers questions appropriately. Moves all extremities freely and without restriction. No sensory deficits. No motor deficits. LABORATORY DATA: None to review. IMAGING: Chest x-ray from 02/17/2019, 0148 hours: Independently reviewed. Portable upright AP chest x-ray shows the trachea is midline. Bony structures are intact. Cardiac silhouette is normal. Diaphragmatic angles are clear. No infiltrate in the lung marley bilaterally. EKG leads are in place. Here is a right IJ pacing wire that terminates in the right ventricle. Per the report, there are calcified right paratracheal nodes that are unchanged and a stable granuloma in the right lung that is unchanged. No pneumothorax is noted. Patient has had no events on telemetry overnight. He is rate controlled with beats between 66 and 75 beats per minute with an irregular rhythm. ASSESSMENT AND PLAN: This is an 83-year-old male who was admitted for tachy-jackie syndrome. He has a history of atrial fibrillation and currently Xarelto is on hold as the plan is to put a permanent pacemaker in this afternoon. Patient will remain nothing by mouth at this time. Will continue with lactated Ringer's at 75 mL per hour as the patient is nothing by mouth.
[2019-02-17] MEDS: CARVedilol 6.25 MG TAB PO SCH (19:19)
[2019-02-17] MEDS: ACETAMINOPHEN TAB 650MG DOSE (2X325MG) PO PRN (19:20)
--- NOTE | 2019-02-17 20:28 | RO ---
DATE OF PROCEDURE: 02/17/2019 PREOPERATIVE DIAGNOSES: 1. Recurrent cardiac asystole - sinus node dysfunction with syncope requiring external chest compression. 2. Paroxysmal atrial fibrillation with rapid ventricular response. POSTOPERATIVE DIAGNOSES: 1. Recurrent cardiac asystole - sinus node dysfunction with syncope requiring external chest compression. 2. Paroxysmal atrial fibrillation with rapid ventricular response PROCEDURE: 1. Implantation of permanent dual-chamber pacemaker. 2. Explantation of temporary transvenous pacing wire under fluoroscopy. IMPLANTING CUSTOMER ACCOUNT REPRESENTATIVE: Dr. Edward Pedro PATENT CHEMIST: ANESTHESIOLOGIST: Dr. Ortiz . TYPE OF ANESTHESIA: Monitored local anesthesia. CLINICAL SUMMARY: This 83-year-old retired resident of [place] is well known to our cardiology practice with longstanding hypertension and paroxysmal atrial fibrillation dating back to November of 2004. Prior trials of amiodarone and flecainide antiarrhythmic therapy were not tolerated because of symptomatic bradycardia. Last admitted August 2018 with a bout of atrial fibrillation with rapid ventricular response averaging 140-160 beats per minute (bpm). Negative chronotropic therapy was adjusted but poorly tolerated once he returned to sinus mechanism. At followup October 01, 2018, his EKG showed junctional escape rhythm at 47 bpm - rhythm changed from September 24, 2018. His negative chronotropic medication and flecainide was discontinued and dual-chamber pacemaker was recommended. Continuing on Xarelto alone. The patient was having daily episodes of rapid palpitations and some lightheadedness but did not seek medical attention. Presented to our emergency room yesterday evening after having a sustained bout of atrial fibrillation since 4:00 in the afternoon. Upon his arrival at 10:45 p.m., EKG confirmed atrial fibrillation with rapid ventricular rate of 148 bpm. Given low-dose metoprolol with spontaneous conversion. Initial pause on converting approximately 6 seconds in duration. Subsequently, while being monitored with rate averaging in the 50s per minute, at 1:30 a.m. this morning he had a prolonged bout of cardiac asystole requiring external chest compression. A temporary transvenous pacemaker was implanted as he did not tolerate transcutaneous noninvasive pacing. Arrangements were made for a permanent device this afternoon so that he will be able to tolerate negative chronotropic/antiarrhythmic therapy without further symptomatic bradyarrhythmia. Post prior cardiac testing: EKG as mentioned showed junctional rhythm, bradycardia at 47 bpm with retrograde atrial activation but was otherwise virtually within normal limits October 01, 2018. Echocardiogram June 27, 2016 showed normal left ventricular size, wall motion but mildly dilated left atrium with left ventricular (LV) diastolic dysfunction. Mild mitral annular calcification with mild mitral insufficiency and mild aortic valvular sclerosis with mild aortic insufficiency. Regadenoson Cardiolite heart scan September 17, 2017 showed no inducible chest pain, EKG change or arrhythmia with normal left ventricular size and wall motion and normal stress SPECT myocardial perfusion images. Other past medical history: Spinal stenosis with peripheral neuropathy. Sinusitis and obstructive sleep apnea, to be started on continuous positive airway pressure (CPAP) in the near future. On examination, he was a pleasant elderly male of medium body build, heart rate currently 54 bpm and regular, blood pressure 122/62. Normal oral moisture. No central cyanosis. Trachea midline. Neck veins were not elevated. Normal carotid upstroke. Normal chest configuration with good air entry over both lung marley with no adventitious sounds. Apical impulse normal in position, normal S1 and S2 with S4 gallop but no murmur that was audible. Soft abdomen with no dependent edema and normal pedal pulses. Blood work in the emergency room showed normal complete blood count, electrolytes, BUN and creatinine measuring 25 and 1.5, random glucose was normal. Ultrasensitive TSH was normal. Troponin I level was negative. Portable upright chest x-ray showed normal heart size and greater vessels with normal pulmonary vasculature. Clear lung marley with no infiltrate or pleural effusion. DESCRIPTION OF PROCEDURE: Following informed consent with the patient fasting with temporary transvenous pacemaker right internal jugular vein site as backup, the patient was taken to the operating theater. Ancef 2 grams IV was given premedication. His left subclavian region was prepped and draped in the usual fashion after he had been connected to a multichannel EKG recording system. The left subclavian region was infiltrated with 1% Xylocaine, and the left axillary vein was catheterized using the micropuncture technique. A 5 cm linear incision was made several centimeters below and parallel to the left clavicle. Dissection was carried down to the level of the pectoralis fascia, and a pocket was fashioned below the level of the incision line. Two bipolar screw-in active fixation steroid-eluting pacing leads were then positioned to the distal right ventricular septum and the high right atrial appendage under fluoroscopic and electrocardiographic control. The right ventricular lead ([employer], model number [id number], serial number [id number]) measurements were: Stimulation threshold 1.25 V/0.4 ms/impedance 600 ohms. The R wave amplitude measured 3.6 mV. These values improved by the time he had reached the recovery room. The right ventricular lead ([employer], model number [id number], serial number [id number]) measurements were initially 1.25 V/0.4 ms/impedance 450 ohms. The P wave was 1.5 mV but all of these values also improved by the time the patient had reached the recovery room. These leads were secured in position with sleeves sutured at the insertion site. They were then connected to a dual-chamber pulse generator ([employer], model number [id number], serial number [id number]) MRI compatible - and appropriate DDD pacing was documented. The pulse generator was placed in the pocket and secured in position with a suture through the upper right-hand corner of the epoxy header. The subcutaneous tissues were approximated using a running chromic suture, and the skin was closed using jesse. A dry dressing was applied, and the patient was returned to the recovery room in good condition. Estimated blood loss less than 50 mL, likely related to his Xarelto therapy. No apparent complications. We intend to monitor on telemetry for the next 12-24 hours while we start him on carvedilol chronotropic therapy to hopefully prevent or least help control paroxysms of rapid atrial fibrillation. His Xarelto therapy will be resumed after 24 hours. Postoperative portable upright chest x-ray confirmed appropriate lead position with no pneumothorax. His EKG showed appropriate atrial pacing at 60 beats per minute with spontaneous atrioventricular (AV) conduction.
[2019-02-17] MEDS ORDERED: ATORVASTATIN 20 MG TAB PO SCH (21:00)
--- NOTE | 2019-02-17 21:30 | ECGEPIP ---
[facility] Test Date: 2019-02-17 Pat Name: MARTINEZ HUYNH Department: Room: [place] [address] Gender: Male Manager Concrete: : 1935 Requested By: Edward Pedro Order Number: [id number] Reading MD: Mino Beverly Measurements Intervals [place] Rate: 61 P: 47 [place]: 227 QRS: 19 QRSD: 95 T: 43 QT: 405 QTc: 411 Interpretive Statements Mostly apparently atrial pacing but underlying rhythm appears to be sinus Pacemaker actrivity, if present, appears to be new since prior tracing of 02/17/2019 Electronically Signed on 02-17-2019 21:30:02 EDT by Mino Beveryl
[2019-02-18] VITALS (11 sets, daily range): BP systolic 107–166; BP diastolic 58–93
[2019-02-18] MEDS: ACETAMINOPHEN TAB 650MG DOSE (2X325MG) PO PRN ×3 (00:04→11:04)
[2019-02-18] MEDS: ceFAZolin SOD 1 GM in D5W MINI-BAG PLUS 50 ML IV SCH ×2 (01:54→10:21)
[2019-02-18] MEDS: CARVedilol 6.25 MG TAB PO SCH ×3 (06:00→10:33)
--- NOTE | 2019-02-18 09:34 | REP ---
CHEST, TWO VIEWS: Two views of the chest is performed and compared with a prior study of 02/17/2019. No acute infiltrate or pulmonary edema is seen. There is no pneumothorax status post placement of dual-lead pacemaker. No acute infiltrate or pulmonary edema is seen. There is a tiny calcified granuloma in the right mid lung zone. There is some calcification of the thoracic aorta. Metallic buckle overlies the mid thorax external to the patient on both views. There are mild degenerative changes of the spine. IMPRESSION: No acute pulmonary disease. Left dual-lead pacemaker appears to be in good position. Electronically Signed by Charlie Logan MD 02/18/2019 04:27 P
--- NOTE | 2019-02-18 11:44 | IPN ---
DATE OF SERVICE: 02/18/2019 My preceptor for this encounter is Dr. Edward Pedro. SUBJECTIVE: The patient is seen at bedside in the intensive care unit (ICU). He is doing well this morning. He is sore on the left side of his chest with a pacemaker was put in last night. He is postoperative day #1 from dual-chamber pacemaker placement. He denies any shortness of breath, palpitations, leg swelling, left-sided chest pain that radiates down into his arm or his neck, or diaphoresis. He denies any fevers or chills. He feels fine, though he states that he did not have the best night's sleep. On telemetry, the patient has had several episodes of wide QRS complex beats, the longest of which spans for about 9 seconds. His maximum heart rate was 106. There were no symptoms during these ventricular beats. IMAGING: Chest x-ray PA and lateral done 02/18/2019 at 0600 hours independently reviewed shows that the airway is midline. The bony structures are intact. Cardiac silhouette is not enlarged. Diaphragms are clear. Lung marley are clear. The patient is status post dual-chamber pacemaker implantation with leads in the right atrium and ventricle. There is an overlying buckle from the patient's left arm sling, as well as telemetry leads. There is no pneumothorax. PHYSICAL EXAMINATION Vital signs: Temperature 98.4, pulse was 64 and irregular, respiratory rate 16, blood pressure is 107/70 with a mean arterial pressure (MAP) of 82. The patient is 96% on room air. General: This is an elderly male in no acute distress who is sitting upright in a chair in the ICU. He is pleasant and cooperative. He answers questions appropriately. HEENT: Sclerae are anicteric and conjunctivae are pink without pallor. Tongue is midline. Mucous membranes are moist. Neck: Trachea is midline and supple. No jugular venous distention (JVD) is appreciated. Dressing over the right internal jugular (vein) (IJ) is clean and intact without erythema or discharge. Lungs: Clear to auscultation bilaterally. No wheezes, rhonchi, or rales. Chest:: Horizontal incision over the left side of the chest is closed with jesse. There is no erythema, bleeding, or discharge. The incision is dry. Cardiovascular: Irregular rhythm. Not tachycardiac at approximately 64 beats per minute. I do not appreciate any murmurs, gallops, or rubs. Pulse is irregular and symmetric bilaterally. There is no lower leg edema. Abdomen: Normoactive bowel sounds, soft, nontender to palpation. Extremities: No splinter hemorrhages, clubbing, cyanosis, or edema bilaterally. Neurological/psychological: Alert and oriented to person, place, and time. Answers questions appropriately and moves all extremities freely and without restriction. No sensory deficits. No motor deficits. ASSESSMENT AND PLAN: This is an 83-year-old male who was admitted for tachybrady syndrome. He is postoperative day #1, status post dual-chamber pacemaker placement. He has done well overnight. We will give carvedilol as long as his blood pressure allows, and discharge him home on 6.25 mg BID. We have discontinued his lisinopril. His Xarelto will be restarted the evening of 02/21/19. He will follow up in the office on 02/20/19 at 10:[address] Pedro. [facility]
[2019-02-18] MEDS ORDERED: CARV6.25 PO (17:14)
[2019-02-18] MEDS ORDERED: XARE20TA PO (17:14)
--- NOTE | 2019-02-18 17:29 | ECGEPIP ---
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
== END 2019-02-18 18:33 | disposition home or self-care (01) | DRG 242 ==
LOC: M ED 22:28 → M SDC 02-17 02:30 → M ED INP 02-17 03:42 → M SDC 02-17 03:42 → M ICU 02-17 03:58 → M ED INP 02-17 04:10 → UNDOFXSDCSVC 02-17 18:18 → M SDC 02-18 18:33 → M ICU 02-18 18:33
PROVIDERS: ADMIT Internal Medicine Cardiovascular Disease; ATTEND Internal Medicine Cardiovascular Disease
PROC: 02HK3JZ Insertion of Pacemaker Lead into Right Ventricle, Percutaneous Approach (ICD-10-PCS; 2019-02-17)
PROC: 02H63JZ Insertion of Pacemaker Lead into Right Atrium, Percutaneous Approach (ICD-10-PCS; 2019-02-17)
PROC: 0JH606Z Insertion of Pacemaker, Dual Chamber into Chest Subcutaneous Tissue and Fascia, Open Approach (ICD-10-PCS; principal; 2019-02-17 15:30)
DX: I49.5 Sick sinus syndrome (principal); I46.9 Cardiac arrest, cause unspecified; I48.0 Paroxysmal atrial fibrillation; Z79.01 Long term (current) use of anticoagulants; I11.9 Hypertensive heart disease without heart failure; Z79.899 Other long term (current) drug therapy

== ENCOUNTER 2019-02-22 06:28 | Observation (INO) | payer MEDICARE, OTHER ==
[~2019-02-22] VITALS: Ht 172.7 cm; Wt 77.3 kg
[~2019-02-22 06:28] MED LIST changes: +CARV6.25 PO; +LISI10TA4 PO
[2019-02-22 07:11] LABS: BASO % 0.3 % (0.0-1.0); EOS # 0.2 10^3/uL (0.0-0.50); EOS % 3.3 % (0.0-3.0); HEMATOCRIT 35.8 % (42.0-52.0); HEMOGLOBIN 12.5 g/dl (13.5-17.5); LYMPH # 1.4 10^3/uL (1.5-4.5); LYMPH % 22.6 % (24.0-44.0); MEAN CORPUSCULAR HEMOGLOBIN 32.6 pg (27.0-33.0); MEAN CORPUSCULAR HGB CONC 34.9 g/dl (32.0-36.5); MEAN CORPUSCULAR VOLUME 93.5 fl (80.0-96.0); MONO # 0.6 10^3/uL (0.0-0.8); MONO % 10.5 % (0.0-5.0); NEUTROPHILS # 3.8 10^3/uL (1.8-7.7); NEUTROPHILS % 62.8 % (36.0-66.0); PLATELET COUNT, AUTOMATED 167 10^3/uL (150-450); RED BLOOD COUNT 3.83 10^6/uL (4.30-6.10); WHITE BLOOD COUNT 6.1 10^3/uL (4.0-10.0)
[2019-02-22 07:25] LABS: INR 1.81; PROTHROMBIN TIME 20.7 SECONDS (11.8-14.0)
[2019-02-22] MEDS ORDERED: NITROGLYCERIN 0.4 MG SUBL TABLET SL PRN (07:30)
[2019-02-22 07:31] VITALS: BP 128/79
[2019-02-22 07:40] LABS: ALBUMIN 3.1 GM/DL (3.2-5.2); ALT/SGPT 33 U/L (12-78); BILIRUBIN,TOTAL 3.1 MG/DL (0.2-1.0); BLOOD UREA NITROGEN 19 MG/DL (7-18); CALCIUM LEVEL 8.7 MG/DL (8.8-10.2); CARBON DIOXIDE LEVEL 25 MEQ/L (21-32); CHLORIDE LEVEL 106 MEQ/L (98-107); CPK CREATINE PHOSPHOKINASE 263 U/L (39-308); CREATININE FOR GFR 1.09 MG/DL (0.70-1.30); GLOMERULAR FILTRATION RATE > 60.0 (>35); GLUCOSE, FASTING 109 MG/DL (70-100); LIPASE 166 U/L (73-393); MB/CK RELATIVE INDEX 0.76 (< OR =4); SODIUM LEVEL 139 MEQ/L (136-145); TOTAL PROTEIN 5.9 GM/DL (6.4-8.2); TROPONIN I < 0.02 NG/ML (< 0.10)
[2019-02-22] MEDS ORDERED: NS 500 ML IV ONE (07:45)
[2019-02-22] MEDS ORDERED: ISOVUE-370 76% 100ML VIAL (Q9967) As Ordered ONE (07:51)
--- NOTE | 2019-02-22 08:00 | REP ---
Portable chest, 06:59 a.m., single AP view with the patient sitting: Comparison is 02/18/2019. The dual chamber pacemaker is unchanged. Skin jesse are again noted adjacent to the pacemaker power pack, unchanged. Lung marley are clear. Cardiac size is normal. There is a stable granuloma in the right lung, unchanged from 2006. Impression: No interval change. Electronically Signed by Charlie Hayden MD 02/22/2019 07:52 A
[2019-02-22] MEDS ORDERED: MORPHINE 2 MG/ML 1ML SYRINGE (J2270) IV ONE (08:15)
--- NOTE | 2019-02-22 08:55 | REP ---
CT of the chest with IV contrast, CT pulmonary angiography protocol: There is a dual-chamber pacemaker. There is no pneumothorax or hemothorax. There is dependent atelectasis in the posterior lung marley. There are no infiltrates or pleural effusions. There are no masses or nodules. There is a pericardial effusion measuring up to 9 mm depth to the cardiac apex posteriorly. There are no emboli in the pulmonary trunk or central pulmonary arteries. There are no emboli in the pulmonary lobe or segment branches. The thoracic aorta is unremarkable. Cardiac size is mildly enlarged and there is a pericardial effusion as discussed previously. The visualized upper abdominal contents are unremarkable except for splenic calcified granulomas. Impression: There are no pulmonary emboli. There is no pneumothorax or hemothorax. There are no infiltrates or pleural effusions. There is a pericardial effusion measuring up to 9 mm depth near the cardiac apex posteriorly. Electronically Signed by Charlie Hayden MD 02/22/2019 08:47 A
[2019-02-22] MEDS ORDERED: CARVedilol 6.25 MG TAB PO SCH ×2 (09:00→21:00)
[2019-02-22] MEDS ORDERED: DOCUSATE SODIUM 100 MG CAP PO SCH (09:00)
[2019-02-22] MEDS ORDERED: COLCHICINE 0.6 MG TAB PO SCH (09:00)
[2019-02-22] MEDS ORDERED: VITAMIN B COMPLEX/VIT C CAP PO SCH (09:00)
[2019-02-22] MEDS ORDERED: MAALOX 30 ML SUSP *UDC PO PRN (09:15)
[2019-02-22] MEDS ORDERED: ACETAMINOPHEN TAB 650MG DOSE (2X325MG) PO PRN ×2 (09:15→10:45)
[2019-02-22] MEDS ORDERED: MOM 30ML SUSPENSION UDC PO PRN (09:15)
[2019-02-22] MEDS ORDERED: APAP325T4 PO (09:17)
[2019-02-22] MEDS ORDERED: B-COTAB10 PO (09:17)
[2019-02-22] MEDS ORDERED: CARV6.25 PO (09:17)
[2019-02-22] MEDS ORDERED: XARE20TA PO (09:17)
[2019-02-22] MEDS ORDERED: GI COCKTAIL 50ML BTL(HYOSCYAMINE/MAALOX/LIDOCAINE VISCOUS)(1:3:1) PO ONE (09:30)
[2019-02-22 10:20] LABS: MAGNESIUM LEVEL 2.2 MG/DL (1.8-2.4)
[2019-02-22] MEDS ORDERED: POLYVINYL ALCOHOL OPHTH SOLN 15 ML(LIQUITEARS) OU PRN (10:45)
--- NOTE | 2019-02-22 11:51 | HPEPDOC ---
General Date of Admission Feb 22, 2019 at 09:10 Date of Service: Feb 22, 2019 Primary Care Physician: Sonu Vergara MD Attending Physician: DEREK KATE DO Chief Complaint The patient is a 83-year-old male admitted with a reason for visit of Chest Pain. Source: Patient Exam Limitations: No limitations Timing/Duration: Changing over time, This morning Severity: Moderate Associated Symptoms: Chest Pain, Cough, Shortness of breath History of Present Illness 83 yo male presented to ED with chest pain , worse with deep inspiration. He had recent hospitalizations as follows: 02/17/19 came to [place] ED with Afib RVR, became asystolic and was resusitated with CPR, electrical shock and temporary pacer placed. patient was then trans ferred to [facility] in [place] 02/18 had permanent pacemaker placed at [facility] and was discharge. Patient states had been off xarelto since 02/17 and was instructed to restart on 02/21 in evening. This morning 02/22/19, he felt like "pressure building up in my chest", "worse with deep breath" and throat clearing cough. no change in chest pressure with sitting or supine position. He then presented to [place] ED, was given NTG and became hypotensive. Was given IVF and blood pressure responded and has since normalized. CT Scan of chest in ED showed no PE but a small 9mm pericardial effusion. Cardiology, Dr Villarreal, was consulted and patient placed under observation to hospitalist service for pericarditis,CP rule out Currently patient states constant chest pressure, worse with inspiration; no N, no V, no TIRADO, no SOB, no ANTUNEZ; He states increased rib and chest wall tenderness with bruising this AM since restarting xarelto. Home Medications Scheduled Atorvastatin Calcium (Atorvastatin Calcium) 40 Mg Tab, 40 MG PO QHS, (Reported) Carvedilol (Carvedilol) 6.25 Mg Tablet, 6.25 MG PO BID, (Reported) Rivaroxaban (Xarelto) 20 Mg Tablet, 20 MG PO QHS, (Reported) Vitamin B Complex/Folic Acid (B-Complex Tablet) 0.4 Mg Tablet, 1 TAB PO DAILY, (Reported) Scheduled PRN Acetaminophen (Acetaminophen) 325 Mg Tablet, 650 MG PO Q4H PRN for PAIN, (Reported) Polyvinyl Alcohol (Artificial Tears) 1.4 % Rosita, 1 DROP OU QID PRN for DRY EYES, (Reported) Allergies Coded Allergies: amiodarone (Verified Allergy, Unknown, SOB, 02/22/19) flecainide (Verified Allergy, Unknown, SOB, 02/22/19) Past Medical History Medical History afib HTN Hyperlipidemia Surgical History Appendectomy, Skin cancer removal, Pacemaker placement 02/18/19 Family History Significant Family History: Noncontributory Social History * Smoker: non-smoker Alcohol: Denies A-FIB/CHADSVASC A-FIB History Current/History of A-Fib/PAF?: Yes Current PO Anticoag Therapy: Yes Age/Risk Factor Scoring CHADSVASC: CHADSVASC Response (Comments) Value Age Risk Factor Age >/= 75 years old 2 Gender Risk Factor Male 0 Hx of CHF No 0 Hx of HTN Yes 1 Hx of Stroke/TIA/or VTE No 0 Hx of Diabetes No 0 Hx of Vascular Disease No 0 Total 3 Treatment Treatment ordered: NONE Reason Anticoagulant not given: Current bleeding Review of Systems Other systems 10 comprehensive systems reviewed and negative except as per HPI Physical Examination General Exam: Positive: Alert, Cooperative, No Acute Distress Eye Exam: Positive: PERRLA, Conjunctiva & lids normal, EOMI ENT Exam: Positive: Atraumatic, Mucous membr. moist/pink, Pharynx Normal, Nares Patent Neck Exam: Positive: Supple, +2 carotid pulse wo bruit Chest Exam: Positive: Clear to auscultation, Normal air movement, Other (chest wall with extensive bruising anteriorly, no palpable crepitus or sc emphysematous changes) Heart Exam: Positive: Rate Normal Telemetry: Positive: Sinus, Other Telemetry: (intermittent atrial and ventricular paced (not VTach)) Abdomen Exam: Positive: Normal bowel sounds, Soft (NT ND ) Extremity Exam: Negative: Clubbing, Cyanosis, Edema, Normal pulses Skin Exam: Positive: Nl turgor and temperature, Other skin issue (extensive chest wall hematoma) Neuro Exam: Positive: Normal Speech, Strength at 5/5 X4 ext, Normal Tone Psych Exam: Positive: Mental status NL, Mood NL, Oriented x 3 Other physical findings CTA CHEST:Impression: There are no pulmonary emboli. There is no pneumothorax or hemothorax. There are no infiltrates or pleural effusions. There is a pericardial effusion measuring up to 9 mm depth near the cardiac apex posteriorly. Vital Signs Vital Signs Date Time Temp Pulse Resp B/P (MAP) Pulse Ox O2 Delivery O2 Flow Rate FiO2 02/22/19 09:58 69 97 02/22/19 09:00 124/75 (91) 02/22/19 06:48 97.2 18 Room Air Laboratory Data Labs 24H Laboratory Tests 2 02/22/19 06:56: Immature Granulocyte % (Auto) 0.5, White Blood Count 6.1, Red Blood Count 3.83L, Hemoglobin 12.5L, Hematocrit 35.8L, Mean Corpuscular Volume 93.5, Mean Corpuscular Hemoglobin 32.6, Mean Corpuscular Hemoglobin Concent 34.9, Red Cell Distribution Width 12.3, Platelet Count 167, Neutrophils (%) (Auto) 62.8, Lymphocytes (%) (Auto) 22.6L, Monocytes (%) (Auto) 10.5H, Eosinophils (%) (Auto) 3.3H, Basophils (%) (Auto) 0.3, Neutrophils # (Auto) 3.8, Lymphocytes # (Auto) 1.4L, Monocytes # (Auto) 0.6, Eosinophils # (Auto) 0.2, Basophils # (Auto) 0.0, Nucleated Red Blood Cells % (auto) 0.0, Prothrombin Time 20.7H, Prothromb Time International Ratio 1.81, Anion Gap 8, Glomerular Filtration Rate > 60.0, Blood Urea Nitrogen 19H, Creatinine 1.09, Sodium Level 139, Potassium Level 4.0, Chloride Level 106, Carbon Dioxide Level 25, Calcium Level 8.7L, Aspartate Amino Transf (AST/SGOT) 31, Alanine Aminotransferase (ALT/SGPT) 33, Total Creatine Kinase 263, Alkaline Phosphatase 79, Total Bilirubin 3.1H, Total Protein 5.9L, Albumin 3.1L, Magnesium Level 2.2, Creatine Kinase MB 2.0, Creatine Kinase MB Relative Index 0.76, Troponin I < 0.02, Albumin/Globulin Ratio 1.11, Lipase 166 CBC/BMP Laboratory Tests 02/22/19 06:56 Red Blood Count 3.83 L, Mean Corpuscular Volume 93.5, Mean Corpuscular Hemoglobin 32.6, Mean Corpuscular Hemoglobin Concent 34.9, Red Cell Distribution Width 12.3, Neutrophils (%) (Auto) 62.8, Lymphocytes (%) (Auto) 22.6 L, Monocytes (%) (Auto) 10.5 H, Eosinophils (%) (Auto) 3.3 H, Basophils (%) (Auto) 0.3, Neutrophils # (Auto) 3.8, Lymphocytes # (Auto) 1.4 L, Monocytes # (Auto) 0.6, Eosinophils # (Auto) 0.2, Basophils # (Auto) 0.0, Calcium Level 8.7 L, Aspartate Amino Transf (AST/SGOT) 31, Alanine Aminotransferase (ALT/SGPT) 33, Total Creatine Kinase 263, Alkaline Phosphatase 79, Total Bilirubin 3.1 H, Total Protein 5.9 L, Albumin 3.1 L Echocardiogram Ordered/pending RAD Interpretation STUDY: CT Chest Rad Actions: Report Reviewed (see above comments), Films Reviewed, Discussed with the pt Assessment/Plan 1) pericarditis - acute consult cardiology - colchicine 0.6mg BID, tele, PCU, echo 2) chest pain - serial troponin, tele 3) hypotension post nitroglycerin paste - resolved with IVF 4) HTN - stable 5) history of afib - hold xarelto, because of extensive bruising, use SCD for DVT prophylaxis and not SC lovenox; currently in paced sinus CODE STATUS: FULL DVT PROPHYLAXIS: SCD Plan / VTE VTE Prophylaxis Ordered?: Yes DEREK KATE DO Feb 22, 2019 11:35
[2019-02-22 13:59] VITALS: BP 153/82
--- NOTE | 2019-02-22 14:20 | DS.PDOC ---
Discharge Summary General Date of Admission Feb 22, 2019 at 09:10 Date of Discharge 02/22/19 Primary Care Physician: Sonu Vergara MD Attending Physician: DEREK KATE DO Specialist/Consultants Involve: Bam Villarreal Discharge Summary PROCEDURES PERFORMED DURING STAY:none ADMITTING DIAGNOSES: 1) pericarditis - acute 2) chest pain - 3) hypotension post nitroglycerin paste - 4) HTN -essential 5) history of afib DISCHARGE DIAGNOSES: 1) pericarditis acute 2) chest pain - 3) hypotension post nitroglycerin paste - 4) HTN - essential 5) history of afib - h COMPLICATIONS/CHIEF COMPLAINT: Chest Pain. HISTORY OF PRESENT ILLNESS: 83 yo male with recent pacemaker placement on 02/18/19 developed chest pressure this AM associated with deep breaths and increased bruising to chest wall (see H&P for details) HOSPITAL COURSE: patient placed under observation for pericarditis and started on colchicine. Cardiology consulted - Dr Villarreal. Before patient was transferred from ED to hospital room, patient requested transfer to [facility] where is usual cardiologists are located. Patient did not receive cardiac echo. Case discussed with Dr Powell who agreed to pateint in transfer. Patient is being discharged in stable condition DISCHARGE MEDICATIONS: Please see below. ALLERGIES: Please see below. PHYSICAL EXAMINATION ON DISCHARGE: VITAL SIGNS: Please see below. SKIN: anterior chest wall bruising HRRR LCTA LABORATORY DATA: Please see below. ACTIVITY: as tolerated DIET: cardiac DISCHARGE PLAN:transfer to [facility] DISPOSITION: 70 Xfer Other. DISCHARGE INSTRUCTIONS: none ITEMS TO FOLLOWUP ON ON OUTPATIENT: none DISCHARGE CONDITION: stable TIME SPENT ON DISCHARGE: Greater than 20 minutes. Total patient care time 90 minutes Vital Signs/I&Os Vital Signs Date Time Temp Pulse Resp B/P (MAP) Pulse Ox O2 Delivery O2 Flow Rate FiO2 02/22/19 13:59 97.4 69 20 153/82 (105) 99 Room Air Laboratory Data Labs 24H Laboratory Tests 2 02/22/19 06:56: Immature Granulocyte % (Auto) 0.5, White Blood Count 6.1, Red Blood Count 3.83L, Hemoglobin 12.5L, Hematocrit 35.8L, Mean Corpuscular Volume 93.5, Mean Corpuscular Hemoglobin 32.6, Mean Corpuscular Hemoglobin Concent 34.9, Red Cell Distribution Width 12.3, Platelet Count 167, Neutrophils (%) (Auto) 62.8, Lymphocytes (%) (Auto) 22.6L, Monocytes (%) (Auto) 10.5H, Eosinophils (%) (Auto) 3.3H, Basophils (%) (Auto) 0.3, Neutrophils # (Auto) 3.8, Lymphocytes # (Auto) 1.4L, Monocytes # (Auto) 0.6, Eosinophils # (Auto) 0.2, Basophils # (Auto) 0.0, Nucleated Red Blood Cells % (auto) 0.0, Prothrombin Time 20.7H, Prothromb Time International Ratio 1.81, Anion Gap 8, Glomerular Filtration Rate > 60.0, Blood Urea Nitrogen 19H, Creatinine 1.09, Sodium Level 139, Potassium Level 4.0, Chloride Level 106, Carbon Dioxide Level 25, Calcium Level 8.7L, Aspartate Amino Transf (AST/SGOT) 31, Alanine Aminotransferase (ALT/SGPT) 33, Total Creatine Kinase 263, Alkaline Phosphatase 79, Total Bilirubin 3.1H, Total Protein 5.9L, Albumin 3.1L, Magnesium Level 2.2, Creatine Kinase MB 2.0, Creatine Kinase MB Relative Index 0.76, Troponin I < 0.02, Albumin/Globulin Ratio 1.11, Lipase 166 CBC/BMP Laboratory Tests 02/22/19 06:56 Red Blood Count 3.83 L, Mean Corpuscular Volume 93.5, Mean Corpuscular Hemoglobin 32.6, Mean Corpuscular Hemoglobin Concent 34.9, Red Cell Distribution Width 12.3, Neutrophils (%) (Auto) 62.8, Lymphocytes (%) (Auto) 22.6 L, Monocytes (%) (Auto) 10.5 H, Eosinophils (%) (Auto) 3.3 H, Basophils (%) (Auto) 0.3, Neutrophils # (Auto) 3.8, Lymphocytes # (Auto) 1.4 L, Monocytes # (Auto) 0.6, Eosinophils # (Auto) 0.2, Basophils # (Auto) 0.0, Calcium Level 8.7 L, Aspartate Amino Transf (AST/SGOT) 31, Alanine Aminotransferase (ALT/SGPT) 33, Total Creatine Kinase 263, Alkaline Phosphatase 79, Total Bilirubin 3.1 H, Total Protein 5.9 L, Albumin 3.1 L Discharge Medications Scheduled Atorvastatin Calcium (Atorvastatin Calcium) 40 Mg Tab, 40 MG PO QHS, (Reported) Carvedilol (Carvedilol) 6.25 Mg Tablet, 6.25 MG PO BID, (Reported) Rivaroxaban (Xarelto) 20 Mg Tablet, 20 MG PO QHS, (Reported) Vitamin B Complex/Folic Acid (B-Complex Tablet) 0.4 Mg Tablet, 1 TAB PO DAILY, (Reported) Scheduled PRN Acetaminophen (Acetaminophen) 325 Mg Tablet, 650 MG PO Q4H PRN for PAIN, (Reported) Polyvinyl Alcohol (Artificial Tears) 1.4 % Rosita, 1 DROP OU QID PRN for DRY EYES, (Reported) Allergies Coded Allergies: amiodarone (Verified Allergy, Unknown, SOB, 02/22/19) flecainide (Verified Allergy, Unknown, SOB, 02/22/19) DEREK KATE DO Feb 22, 2019 14:20
--- NOTE | 2019-02-22 17:09 | ECGEPIP ---
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
[2019-02-22] MEDS ORDERED: ATORVASTATIN 20 MG TAB PO SCH (21:00)
--- NOTE | 2019-02-23 06:55 | ECGEPIP ---
[facility] - ED Test Date: 2019-02-22 Pat Name: MARTINEZ HUYNH Department: Room: - Gender: Male Traffic Operator: KATIA : 1935 Requested By: LISA CRISTOBAL Order Number: [id number] Reading MD: Som Reardon Measurements Intervals [place] Rate: 69 P: 91 MD: 251 QRS: 8 QRSD: 88 T: 53 QT: 377 QTc: 407 Interpretive Statements ELECTRONIC ATRIAL PACEMAKER SIMILAR TO 02/18/19 Electronically Signed on 02-23-2019 6:54:43 EDT by Som Reardon
== END 2019-02-22 14:01 | disposition other institution (70) ==
LOC: M ED 06:28 → M ED INP 09:10
PROVIDERS: ADMIT Family Medicine; ATTEND Family Medicine
DX: I30.9 Acute pericarditis, unspecified (principal); R07.89 Other chest pain; I95.9 Hypotension, unspecified; I10 Essential (primary) hypertension; E78.49 Other hyperlipidemia; Z95.0 Presence of cardiac pacemaker; Z79.01 Long term (current) use of anticoagulants; Z86.79 Personal history of other diseases of the circulatory system; Z79.899 Other long term (current) drug therapy; Z88.8 Allergy status to other drugs, medicaments and biological substances
CPT/HCPCS: 71045; 71275; 80053; 82550; 82553; 83690; 83735; 84484; 85025; 85610; 93005; 93041; 94760; 96374; 99285; G0378; Q9967

== ENCOUNTER 2019-02-27 15:46 | Inpatient (IN) | payer MEDICARE, OTHER ==
[~2019-02-27] VITALS: Ht 172.7 cm; Wt 69.5 kg
[2019-02-27] VITALS (8 sets, daily range): BP systolic 112–165; BP diastolic 58–77
[~2019-02-27 15:46] MED LIST changes: +APAP325T4 PO; +B-COTAB10 PO
[2019-02-27 16:13] LABS: BASO % 0.4 % (0.0-1.0); EOS # 0.1 10^3/uL (0.0-0.50); EOS % 1.8 % (0.0-3.0); HEMATOCRIT 34.5 % (42.0-52.0); LYMPH # 1.5 10^3/uL (1.5-4.5); MEAN CORPUSCULAR HEMOGLOBIN 33.3 pg (27.0-33.0); MEAN CORPUSCULAR HGB CONC 34.8 g/dl (32.0-36.5); MEAN CORPUSCULAR VOLUME 95.8 fl (80.0-96.0); MONO # 0.8 10^3/uL (0.0-0.8); MONO % 10.5 % (0.0-5.0); NEUTROPHILS # 5.1 10^3/uL (1.8-7.7); NEUTROPHILS % 66.8 % (36.0-66.0); PLATELET COUNT, AUTOMATED 229 10^3/uL (150-450); WHITE BLOOD COUNT 7.6 10^3/uL (4.0-10.0)
[2019-02-27 16:24] LABS: INR 1.61; PROTHROMBIN TIME 18.9 SECONDS (11.8-14.0)
--- NOTE | 2019-02-27 16:41 | REP ---
Clinical: Acute chest pain . Comparison: 02/22/2019 . Findings: The mediastinum and cardiac silhouette are stable and within normal limits for portable technique. Dual lead pacemaker in stable position. The lung marley are clear without acute consolidation, effusion, or pneumothorax. Skeletal structures are intact. Impression: No acute cardiopulmonary process appreciated. Electronically Signed by Kranthi Bloom MD 02/27/2019 04:31 P
[2019-02-27 16:52] LABS: ALBUMIN 3.3 GM/DL (3.2-5.2); ALT/SGPT 45 U/L (12-78); BILIRUBIN,DIRECT 0.3 MG/DL (0.0-0.2); BILIRUBIN,TOTAL 3.5 MG/DL (0.2-1.0); BLOOD UREA NITROGEN 26 MG/DL (7-18); CARBON DIOXIDE LEVEL 22 MEQ/L (21-32); CHLORIDE LEVEL 109 MEQ/L (98-107); CK-MB VALUE MASS 1.5 NG/ML (<3.6); CPK CREATINE PHOSPHOKINASE 115 U/L (39-308); CREATININE FOR GFR 1.18 MG/DL (0.70-1.30); GLOMERULAR FILTRATION RATE > 60.0 (>35); GLUCOSE, FASTING 143 MG/DL (70-100); NT-PRO BNP 198 PG/ML (<450); POTASSIUM SERUM 4.2 MEQ/L (3.5-5.1); SODIUM LEVEL 139 MEQ/L (136-145); TOTAL PROTEIN 5.9 GM/DL (6.4-8.2); TROPONIN I < 0.02 NG/ML (< 0.10)
[2019-02-27] MEDS ORDERED: ISOVUE-370 76% 100ML VIAL (Q9967) As Ordered ONE (17:36)
[2019-02-27] MEDS ORDERED: CARV12.5 PO (17:58)
[2019-02-27] MEDS ORDERED: COLC1TAB13 PO (17:58)
[2019-02-27] MEDS ORDERED: NS 250 ML IV ONE (18:00)
[2019-02-27] MEDS ORDERED: NS 500 ML IV ONE (18:00)
--- NOTE | 2019-02-27 18:03 | REP ---
Clinical: Pericardial effusion. Technique: Axial contrast enhanced images from the thoracic inlet to the upper abdomen with coronal and sagittal re-formations using 100 ml Isovue 370 intravenous contrast material. Comparison: 02/22/2019. Findings: A small/moderate pericardial effusion is again identified and slightly increased from prior examination. Pericardial effusion previously measured 9 mm posteriorly nearing the cardiac apex now measures 12.6 mm at the same level. A somewhat prominent possible mass inseparable from the pericardium along the anteromedial aspect of the right lung (image 50) measures approximately 2.4 cm maximal diameter and warrants followup. Current examination also demonstrates bibasilar atelectasis and new small right pleural effusion. Atherosclerotic changes to the thoracic aorta and coronary arteries noted without aortic aneurysm or dissection. There is no cardiomegaly. Pulmonary vasculature appears normal and without obvious pulmonary embolus. No adenopathy. Osseous structures demonstrate degenerative changes without focal abnormality. Limited upper abdomen demonstrates normal bilateral adrenal glands. Gallbladder wall thickening raises the possibility of acute cholecystitis. Impression: 1. Small to moderate pericardial effusion slightly increased from prior examination. 2. New small right pleural effusion and bibasilar atelectasis. Electronically Signed by Kranthi Bloom MD 02/27/2019 05:55 P
[2019-02-27] MEDS ORDERED: KCL 20MEQ IN D5/NS 1000ML 1,000 ML IV SCH (18:13)
[2019-02-27] MEDS ORDERED: MIDAZOLAM INJ 2 MG/2 ML VIAL (J2250) As Ordered ONE ×3 (18:25→18:52)
[2019-02-27] MEDS ORDERED: FLUMAZENIL 0.5 MG/5 ML VIAL As Ordered ONE (18:25)
[2019-02-27] MEDS ORDERED: LIDOCAINE 1% MDV 20ML VIAL As Ordered ONE (18:26)
--- NOTE | 2019-02-27 18:28 | ECHO ---
DATE OF PROCEDURE: 02/27/2019 AGE: 83 GENDER: Male HEIGHT: 68 inches WEIGHT: 169 pounds BODY SURFACE AREA: 1.9 m2 PATIENT LOCATION: Inpatient, currently in the emergency room. REFERRING PHYSICIAN: INDICATION: Chest pain. Post pacemaker implant. CT scan showing pericardial effusion. 2-D MEASUREMENTS: RV: 2.8 cm LV: 4.4 cm Septum: 1.1 cm Posterior wall: 1.1 cm Aortic root: 3.8 cm LA: 3.6 cm LVEF: 75% DOPPLER MEASUREMENTS: AV: 1.12 m/s LVOT: 0.96 m/s LVOT diameter: 2.0 cm MV-E: 58, A: 72, EA ratio: 0.8 Early mitral deceleration time: 300 ms E prime: 6.2, A prime: 5.5, E/E prime ratio: 9.4 PCWP: 15.5 PV: 0.9 m/s Pulmonary artery acceleration time: 99 ms RVSP: 45 mmHg IVC: 2.7 cm COMMENTS Atrially paced rhythm with spontaneous atrioventricular (AV) conduction with bouts of pacemaker mediated tachycardia with wide QRS complexes. M-mode and two-dimensional echocardiography was performed with pulsed, continuous wave, color flow and tissue Doppler studies. Left ventricular size and wall thickness upper limits of normal with hyperkinetic wall motion. Normal left atrial size with Doppler evidence of an impairment of left ventricle (LV) diastolic function and slightly elevated estimated mean left atrial pressure. Right heart chamber free rodriguez appear to be inverted intermittently due to moderately large pericardial effusion. Estimated pulmonary arterial pressure at least moderately increased. Prominently dilated inferior vena cava with virtually absent respiratory collapse in keeping with an elevated central venous pressure. Aortic valvular sclerosis with mild - moderate insufficiency. Normal aortic root size. Mild mitral annular calcification without functional abnormality. Moderately large pericardial effusion measuring 1.6 cm at the apex, 0.8 cm anteriorly and 1.2 cm posteriorly. Right heart chamber compression as mentioned. A preliminary report of this study has been relayed directly to Dr. Mamta Quintero in the emergency room. We recommended consultation with Dr. Ricardo Hopkins, thoracic surgery to arrange for pericardial fluid drainage procedure.
[2019-02-27] MEDS ORDERED: BUPIVACAINE HCL 0.5% 30 ML VIAL As Ordered ONE (18:43)
[2019-02-27] MEDS ORDERED: BUPIVACAINE LIPOSOME/PF 1.3% 20ML VIAL (13.3MG/ML)(EXPAREL)(C9290 PER1MG) As Ordered ONE (18:43)
[2019-02-27 18:46] LABS: ABG O2 SATURATION 98.7 % (95.0-99.0)
[2019-02-27 18:47] LABS: ABG BASE EXCESS -5.4 (-2.0-2.0); ABG HCO3 17.9 MEQ/L (22.0-26.0); ABG PARTIAL PRESSURE CO2 28.6 mmHg (35.0-45.0); ABG PARTIAL PRESSURE O2 131.7 mmHg (75.0-100.0); ABG STANDARD HCO3 20.1 MEQ/L (22.0-26.0); ABG TOTAL CO2 18.8 MEQ/L (23.0-31.0); ABG pH (ARTERIAL) 7.414 UNITS (7.350-7.450)
[2019-02-27] MEDS ORDERED: EPINEPHrine INJ 1 MG/ML 1ML AMP As Ordered ONE (18:48)
[2019-02-27] MEDS ORDERED: LIDOCAINE 2% INJ 100 MG/5 ML SDV (FOR ANES.) As Ordered ONE (18:48)
[2019-02-27] MEDS ORDERED: ROCURONIUM BROMIDE 50 MG/5 ML VIAL As Ordered ONE (18:48)
[2019-02-27] MEDS ORDERED: KETAMINE HCL 200 MG/20 ML VIAL As Ordered ONE (18:48)
[2019-02-27] MEDS ORDERED: ETOMIDATE INJ 20MG/10ML VIAL As Ordered ONE (18:48)
[2019-02-27] MEDS ORDERED: PROPOFOL 200 MG/20 ML VIAL As Ordered ONE (18:48)
[2019-02-27 18:50] LABS: ERYTHROCYTE SEDIMENTATION RATE 17 mm/hr (0-20)
[2019-02-27] MEDS ORDERED: fentaNYL 100 MCG/2 ML INJECTION (J3010) As Ordered ONE ×4 (18:52→21:53)
[2019-02-27] MEDS ORDERED: MUPIROCIN 2% OINT 22 GM TUBE As Ordered ONE (18:56)
[2019-02-27] MEDS ORDERED: ceFAZolin 2 GM/D5W 50 ML IV BAG (J0690 PER 500MG) As Ordered ONE (18:56)
[2019-02-27] MEDS ORDERED: ceFAZolin SOD 1 GM in D5W MINI-BAG PLUS 50 ML IV SCH (19:00)
[2019-02-27] MEDS ORDERED: dexameTHASONE 4 MG/ML 1ML VIAL (J1100) As Ordered ONE (19:34)
[2019-02-27] MEDS ORDERED: ONDANSETRON 4MG/2ML VIAL (J2405) As Ordered ONE (19:35)
[2019-02-27] MEDS ORDERED: SUGAMMADEX SODIUM 500 MG/5 ML VIAL (BRIDION) As Ordered ONE (19:51)
[2019-02-27] MEDS ORDERED: ACETAMINOPHEN 1000MG 100ML IV BTL (OFIRMEV) (J0131 PER 10MG) As Ordered ONE (20:03)
--- NOTE | 2019-02-27 20:24 | ECGEPIP ---
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
--- NOTE | 2019-02-27 20:27 | ECGEPIP ---
[facility] - ED Test Date: 2019-02-27 Pat Name: MARTINEZ HUYNH Department: Room: - Gender: Male B2B Appointment Setter: : 1935 Requested By: Mamta Zhang Order Number: [id number] Reading MD: Som Reardon Measurements Intervals [place] Rate: 100 P: CA: -1 QRS: 238 QRSD: 179 T: 41 QT: 417 QTc: 538 Interpretive Statements ELECTRONIC VENTRICULAR PACEMAKER SIMILAR TO 02/22/19 Electronically Signed on 02-27-2019 20:26:56 EDT by Som Reardon
[2019-02-27] MEDS ORDERED: ACETAMINOPHEN TAB 650MG DOSE (2X325MG) PO PRN (20:45)
[2019-02-27] MEDS ORDERED: BISACODYL 10 MG SUPP PR PRN (20:45)
[2019-02-27] MEDS ORDERED: zolPIDEM TARTRATE 5 MG TAB PO PRN (20:45)
[2019-02-27] MEDS ORDERED: LEVALBUTEROL 1.25 MG/0.5 ML CONCENTRATE NEB NEB PRN (20:45)
[2019-02-27] MEDS ORDERED: ONDANSETRON 4MG/2ML VIAL (J2405) IV PRN ×2 (20:45→22:00)
[2019-02-27] MEDS ORDERED: PERCOCET 5MG/325MG TAB PO PRN ×2 (20:45)
--- NOTE | 2019-02-27 20:46 | HPE ---
ADMISSION HISTORY AND PHYSICAL DATE OF ADMISSION: 02/27/2019 ATTENDING PHYSICIAN: Dr. Edward Pedro CHIEF COMPLAINT: Faintness and shortness of breath. 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 Situation complicated by a sinus node dysfunction with prior episodes of bradycardia on antiarrhythmic therapy flecainide and amiodarone. He had been admitted August with atrial fibrillation and rapid ventricular response. Upon presentation, his ventricular response was 128 beats per minute. The patient was given amiodarone which converted him back to sinus mechanism, but these medications needed to be decreased because of significant bradycardia documented prior to his discharge. Had continued on metoprolol and Xarelto. Followup appointment 10/01/2018 documented a junctional bradycardia at 47 beats per minute and permanent pacemaker implantation was advised. The patient chose to consider this option. Since that time, he had been experiencing daily episodes of nonsustained and sustained episodes of atrial fibrillation, up to four hours in duration, without seeking medical attention, with continuing on Xarelto therapy alone. On 09/19/2018, presented to [facility] emergency room with sustained rapid palpitations. Upon his arrival, his ventricular response was 140-160 beats per minute. The patient was given one dose of metoprolol intravenous (IV) and 25 mg by mouth with gradual slowing of his ventricular response to 120. A matter of an hour later, he converted to sinus mechanism and upon his conversion, had a 6-second asystolic pause followed by sinus bradycardia and the 50s. An hour and 50 minutes later he had a recurrent episode of prolonged cardiac asystole with syncope requiring external chest compression. A transcutaneous noninvasive pacing system was applied, but he did not tolerate this. A transvenous temporary pacemaker was promptly inserted and later the same day a permanent dual-chamber pacemaker was implanted under monitored local anesthesia. Intraoperative course was complicated by oozing related to his oral anticoagulation. He had a small hematoma at the site of his pacemaker pocket. He was discharged home 02/18/2019 and was given a followup appointment in my office for 02/20/2019. On 02/22/2019, he presented to the emergency room with chest discomfort described as a pressure sensation. Heart rate was 70 beats per minute and regular, blood pressure 128/76, oxygen saturation 98%, with respiratory rate 18. A chest CT scan was obtained showing mild cardiomegaly with a small apical pericardial effusion measuring 9 mm. Dual-chamber pacemaker was in situ. Some dependent atelectasis, but no infiltrate or pleural effusion. No evidence of pulmonary embolism. The patient requested transfer to [facility] and he was monitored there for several days. Apparently, echocardiographic study there did not show evidence of tamponade. The patient was continued on his Xarelto and placed on colchicine and remained on carvedilol. He claims his heart rate repeatedly increased up and down until his dosage of carvedilol was increased. He was discharged home earlier this week and was seen in followup in my office earlier today. His jesse were removed. His incision appeared to be healing well. Had chest wall ecchymosis that was resolving. At noontime, while at a fast food restaurant, developed recurrent palpitations and profound weakness. An ambulance was summoned and was taken to the emergency room here again. Upon his presentation, he did appear to be in some distress because of pleuritic chest pain and dyspnea associated with weakness. Initial vital signs showed a heart rate of 69 beats per minute, blood pressure 122/79, dropping to 80/50 with bouts of pacemaker-mediated tachycardia. A followup chest CT angiogram was performed showing considerable increase in his pericardial effusion. A stat echocardiogram was performed and read by myself showing normal left atrial and ventricular sizes, wall thickness upper limits of normal with hyperkinetic wall motion. Right heart chamber sizes were normal, but there was diastolic inversion of the right ventricular and right atrial free rodriguez, along with a fairly large pericardial effusion. His inferior vena cava was dilated at 2.7 cm and did not collapse. In light of his echocardiographic findings and clinical appearance, urgent consultation was placed with Dr. Ricardo Hopkins, thoracic surgery, for pericardial drainage procedure. At this point, the patient still does have some chest discomfort with deep breath. Has been given a liter of saline because of his soft blood pressure with pacemaker-mediated tachycardia. I actually reprogrammed his pacemaker to AAI at 70 beats per minute with resolution of his pacemaker-mediated tachycardia. We had known this to be a problem since its implant and had tried a host of different program prime order changes in hopes of preventing the arrhythmia. This still appeared to be quite tenacious, but it was well controlled simply programming his device to AAI. As previously mentioned, he had rapid ventricular response to atrial fibrillation, i.e. atrioventricular (AV) jamaal conduction system that is intact. OTHER PAST MEDICAL/SURGICAL HISTORY Has been remarkably well beyond spinal stenosis. Also has a history of obstructive sleep apnea diagnosed 02/12/2019. 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 History of essential tremor and prior maxillary sinusitis. Previous colonic polypectomy. CORONARY RISK FACTORS: Age, gender, hypertension and hyperlipidemia. Remote very brief smoking history. No diabetes mellitus. No family history of premature coronary disease. OTHER PAST CARDIAC TESTING: Prior regular stress study showing inducible repolarization abnormalities, but followup but treadmill heart scan showed normal myocardial perfusion. Prior echocardiogram showed a mildly dilated left atrium, but normal left ventricular size and function, with some degenerative change of his mitral and aortic valvular apparatus with no more than mild insufficiency of age. SYSTEMS REVIEW: Denies actual fever, chills or weight loss. No visual problems, hearing problems. Denies cough or sputum. Has had a good appetite with regular bowel habit. No gastrointestinal (GI) bleeding. Chronic low back pain and bilateral lower extremity peripheral neuropathy. All other systems review was negative. MEDICATIONS: At home he was taking his: - Xarelto 20 mg daily - carvedilol 12.5 mg twice a day - colchicine 0.6 mg daily - atorvastatin 40 mg at bedtime - Tylenol 325 mg tablets, two tablets every 4 hours as needed for pain - vitamin B complex with folic acid, one tablet daily - Artificial Tears one drop each eye four times a day ALLERGIES: FLECAINIDE and AMIODARONE, but this is related to bradycardia. PHYSICAL EXAMINATION: CONSTITUTIONAL: Pleasant, elderly male of medium body build, does look somewhat distressed, with upper chest and neck fullness, but no pallor or cyanosis. VITAL SIGNS: Heart rate 70 bpm and regular, blood pressure 117/76 and in atrially paced rhythm, dropping to 82/60 with pacemaker mediated tachycardia, rate 100 bpm. Respiratory rate 20, with oxygen saturation 96% on supplemental oxygen by nasal prongs. Afebrile. Weight 177 pounds, height 68 inches, body mass index (BMI) 25.9. EYES: Normal conjunctivae and lids. Appeared to be slightly icteric. No xanthelasma. ENT/MOUTH: Normal oral moisture with no central cyanosis. NECK: Trachea midline. Thyroid is not enlarged. Neck veins did appear to be elevated at least 6 cm above the sternal angle. RESPIRATORY: Normal chest configuration and chest expansion with well-healed left subclavian pacemaker incision with small ongoing hematoma. Resolving ecchymosis tracking down the front of his chest. Good air entry over both lung marley with no current abnormal pulmonary adventitious sounds. CARDIOVASCULAR: Apical impulse not palpable. Heart sounds were quite muffled. No audible pericardial rub. Fairly normal carotid upstroke with slightly variable volume. No carotid bruits. Peripheral pulses appeared to be symmetrical. Abdominal aorta not palpable. No bruits. Pedal pulses were palpable with no more than plus/minus distal lower extremity pitting. GASTROINTESTINAL (GI): Soft and nontender abdomen with no obvious hepatosplenomegaly. Normal bowel sounds. RECTAL EXAMINATION: Not indicated. MUSCULOSKELETAL: No obvious joint deformities. Normal appearing muscular strength and tone. Gait of course was not assessed at this time. History of spinal stenosis but no obvious spinal deformity. NEUROLOGICAL/PSYCHOLOGICAL: Bright, alert and oriented. Gave a lucid history. Eye, facial, and extremity moves were symmetrical and normal. No abnormal movements. SKIN: Ecchymosis, as mentioned above. Degenerative changes of the skin over both lower legs. INVESTIGATIONS: Portable upright chest x-ray: Reviewed independently shows cardiomegaly with fairly stable position of the pacemaker pulse generator, left subclavian region, and right atrial and right ventricular pacing leads. Slightly unfolded thoracic aorta with some calcification in the aortic arch. Slightly prominent pulmonary vessels. No localized infiltrate or pleural effusion. EKG: Tracing taken from the emergency room not currently available for my review. The EKG telemetry: This shows appropriate atrially paced rhythm with spontaneous AV conduction and narrow QRS complexes with intermittent bouts of pacemaker-mediated tachycardia with wide complex ventricular paced beats with retrograde atrial activation, which is sensed and propagates his rhythm, as described above. BLOOD WORK: Hemoglobin 12, with normal white blood cell count and platelet count. PT/INR 18.9/1.6. Arterial blood gas on supplemental oxygen by nasal prongs showed a pH of 7.41, pCO2 of 29, pO2 of 132. Chemistry confirms electrolyte balance, with BUN up from last time 226, creatinine slightly up at 1.18, random glucose 143. BNP level is normal. Troponin I level is negative. TSH is normal at 2.79. Albumin is normal at 3.3. Liver function studies are normal, but total bilirubin is increased at 3.5, related to his ecchymosis and reabsorption of blood. PROVISIONAL DIAGNOSES: 1. Cardiac tamponade: Clinical and echocardiographic evidence of cardiac compression that is asymptomatic, likely related to recent pacemaker implantation and continued administration of oral anticoagulation despite pericarditis. Dr. Ricardo Hopkins has kindly been consulted and agreed to help us with prompt pericardial drainage procedure. It was felt safest to perform this in the operating room. The patient understands and agrees. 2. Pacemaker-mediated tachycardia: As mentioned, especially with his cardiac tamponade, his tachyarrhythmia is clearly quite symptomatic. I have at least temporarily reprogrammed his pacemaker to an AAI device to eliminate this arrhythmia. 3. Tachy-jackie syndrome/dual-chamber pacemaker in situ: Noting the above problem with pacemaker-mediated tachycardia that we have tried a host of different parameter changes to eliminate, without success, the remedy is simply to pace and sense in the single chamber. Intracardiac electrograms and pacing thresholds remained stable with stable lead impedances. 4. Paroxysmal atrial fibrillation: With his faster pacing rate and AF suppression mode activated, has been free of further atrial fibrillation. Certainly for the time being, we will have to withhold his oral anticoagulation. With his observed rapid ventricular responses to atrial fibrillation, now he has a permanent pacemaker in place, we intend to add at least low dose flecainide 50 mg twice a day to his carvedilol in hopes of preventing this arrhythmia. 5. Hypertensive heart disease (benign without heart failure): Current blood pressure appears to be obviously well-controlled related to his cardiac tamponade, but also his present dose of carvedilol. He should be able to resume this therapy postoperatively without a problem. I suspect his prerenal azotemia is a reflection of his cardiac tamponade and we believe this will improve once his drainage procedure has been accomplished. 6. 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 No symptoms or signs of endocarditis. For the time being, the patient will be observed in the intensive care unit and again, we appreciate Dr. Hopkins's assistance. Thank you. cc: Dr. Jai Hopkins
[2019-02-27] MEDS ORDERED: POLYVINYL ALCOHOL OPHTH SOLN 15 ML(LIQUITEARS) OU PRN (21:00)
[2019-02-27] MEDS: DOCUSATE SODIUM 100 MG CAP PO SCH (21:00)
[2019-02-27 21:23] LABS: PH BODY FLUID 7.272 UNITS (NOT ESTABLISHED); SOURCE, BODY FLUID pH PERICARDIAL
[2019-02-27 21:26] LABS: ABG BASE EXCESS -6.3 (-2.0-2.0); ABG HCO3 19.5 MEQ/L (22.0-26.0); ABG PARTIAL PRESSURE CO2 39.8 mmHg (35.0-45.0); ABG PARTIAL PRESSURE O2 149.4 mmHg (75.0-100.0); ABG STANDARD HCO3 19.4 MEQ/L (22.0-26.0); ABG TOTAL CO2 20.8 MEQ/L (23.0-31.0); ABG pH (ARTERIAL) 7.309 UNITS (7.350-7.450)
[2019-02-27 21:31] LABS: BASO % 0.3 % (0.0-1.0); EOS % 0.3 % (0.0-3.0); HEMATOCRIT 33.4 % (42.0-52.0); HEMOGLOBIN 11.5 g/dl (13.5-17.5); LYMPH # 0.8 10^3/uL (1.5-4.5); LYMPH % 12.9 % (24.0-44.0); MEAN CORPUSCULAR HEMOGLOBIN 33.1 pg (27.0-33.0); MEAN CORPUSCULAR HGB CONC 34.4 g/dl (32.0-36.5); MEAN CORPUSCULAR VOLUME 96.3 fl (80.0-96.0); MONO # 0.3 10^3/uL (0.0-0.8); MONO % 4.5 % (0.0-5.0); NEUTROPHILS # 5.1 10^3/uL (1.8-7.7); NEUTROPHILS % 80.9 % (36.0-66.0); PLATELET COUNT, AUTOMATED 188 10^3/uL (150-450); RED BLOOD COUNT 3.47 10^6/uL (4.30-6.10); WHITE BLOOD COUNT 6.3 10^3/uL (4.0-10.0)
[2019-02-27] MEDS ORDERED: CARVedilol 6.25 MG TAB As Ordered ONE (21:41)
[2019-02-27 21:45] LABS: APPEARANCE, BODY FLUID TURBID (CLEAR); SOURCE, BODY FLUID PERICARDIAL
[2019-02-27] MEDS: CARVedilol 12.5 MG TAB PO SCH (21:46)
[2019-02-27 21:49] LABS: BLOOD UREA NITROGEN 26 MG/DL (7-18); CALCIUM LEVEL 7.3 MG/DL (8.8-10.2); CARBON DIOXIDE LEVEL 23 MEQ/L (21-32); CHLORIDE LEVEL 112 MEQ/L (98-107); GLOMERULAR FILTRATION RATE > 60.0 (>35); GLUCOSE, FASTING 133 MG/DL (70-100); POTASSIUM SERUM 4.6 MEQ/L (3.5-5.1); SODIUM LEVEL 140 MEQ/L (136-145)
[2019-02-27 21:51] LABS: LDH, BODY FLUID 886 U/L (NOT ESTABLISHED); SOURCE, BODY FLUID GLUCOSE PERICARDIAL; SOURCE, BODY FLUID LDH PERICARDIAL; SOURCE, BODY FLUID TOT PROTEIN PERICARDIAL; TOTAL PROTEIN, BODY FLUID 6.2 G/DL (NOT ESTABLISHED)
[2019-02-27] MEDS: fentaNYL 100 MCG/2 ML INJECTION (J3010) IV PRN ×4 (21:55→22:10)
[2019-02-27 21:58] LABS: SOURCE, BODY FLUID ALBUMIN PERICARDIAL
[2019-02-27] MEDS ORDERED: LR 1,000 ML IV SCH (22:00)
[2019-02-27 22:05] LABS: LDH LACTATE DEHYDROGENASE 193 U/L (87-241)
[2019-02-27] MEDS: NORCO, ANEXSIA 5/325MG TABLET (HYDROcodone/ACETAMINOPHEN) PO PRN (22:45)
[2019-02-27] MEDS: ATORVASTATIN 20 MG TAB PO SCH (22:45)
[2019-02-27] MEDS: CHLORHEXIDINE GLUCONATE 0.12 % 15ML UDC (PERIDEX ORAL RINSE) MT SCH (22:46)
[2019-02-27] MEDS: FLECAINIDE 50MG TABLET PO SCH (22:46)
[2019-02-27] MEDS: KETOROLAC 30 MG/ML VIAL (J1885) IV SCH (22:46)
[2019-02-28] VITALS (25 sets, daily range): BP systolic 80–147; BP diastolic 49–65; O2SAT 97
[2019-02-28] MEDS: LEVALBUTEROL 1.25 MG/0.5 ML CONCENTRATE NEB NEB SCH ×4 (01:18→19:29)
[2019-02-28] MEDS: NORCO, ANEXSIA 5/325MG TABLET (HYDROcodone/ACETAMINOPHEN) PO PRN ×2 (02:04→16:30)
[2019-02-28] MEDS: ceFAZolin SOD 1 GM in D5W MINI-BAG PLUS 50 ML IV SCH ×3 (02:50→18:12)
[2019-02-28] MEDS: KETOROLAC 30 MG/ML VIAL (J1885) IV SCH ×4 (03:45→20:43)
[2019-02-28 04:13] LABS: BASO % 0.1 % (0.0-1.0); HEMOGLOBIN 11.5 g/dl (13.5-17.5); LYMPH # 0.8 10^3/uL (1.5-4.5); LYMPH % 6.7 % (24.0-44.0); MEAN CORPUSCULAR HEMOGLOBIN 32.6 pg (27.0-33.0); MEAN CORPUSCULAR HGB CONC 34.8 g/dl (32.0-36.5); MEAN CORPUSCULAR VOLUME 93.5 fl (80.0-96.0); MONO # 1.2 10^3/uL (0.0-0.8); MONO % 10.2 % (0.0-5.0); NEUTROPHILS # 9.3 10^3/uL (1.8-7.7); NEUTROPHILS % 82.5 % (36.0-66.0); PLATELET COUNT, AUTOMATED 183 10^3/uL (150-450); RED BLOOD COUNT 3.53 10^6/uL (4.30-6.10); WHITE BLOOD COUNT 11.3 10^3/uL (4.0-10.0)
[2019-02-28 05:09] LABS: BLOOD UREA NITROGEN 27 MG/DL (7-18); CARBON DIOXIDE LEVEL 22 MEQ/L (21-32); CHLORIDE LEVEL 108 MEQ/L (98-107); GLOMERULAR FILTRATION RATE > 60.0 (>35); GLUCOSE, FASTING 133 MG/DL (70-100); POTASSIUM SERUM 4.8 MEQ/L (3.5-5.1); SODIUM LEVEL 137 MEQ/L (136-145)
[2019-02-28] MEDS: HEPARIN SOD (PORCINE) 5000 UNITS/ML VIAL SC SCH ×2 (05:17→18:11)
[2019-02-28 05:59] LABS: ABG BASE EXCESS -2.6 (-2.0-2.0); ABG HCO3 21.2 MEQ/L (22.0-26.0); ABG O2 SATURATION 98.2 % (95.0-99.0); ABG PARTIAL PRESSURE CO2 33.9 mmHg (35.0-45.0); ABG STANDARD HCO3 22.3 MEQ/L (22.0-26.0); ABG TOTAL CO2 22.3 MEQ/L (23.0-31.0); ABG pH (ARTERIAL) 7.415 UNITS (7.350-7.450)
--- NOTE | 2019-02-28 06:50 | CR ---
DATE OF CONSULTATION: 02/27/2019 The patient is seen at the request of Dr. Galarza in the emergency room and Dr. Pedro of cardiology for shortness of breath accompanied by pericardial effusion with compression signs on echocardiogram. HISTORY OF PRESENT ILLNESS: The patient is an 83-year-old white male who on 09/19/2018 underwent insertion of a dual chamber pacemaker after presenting to the emergency room with palpitations and atrial fibrillation of 140 to 160 beats per minute. He was given a beta lizzy and then became asystolic requiring external chest compressions. A dual chamber pacemaker was then eventually placed after placing a transvenous temporary pacer. He was sent home the next day. On 02/22/2019 he again presented to the emergency room with chest discomfort and a pressure sensation. A CT showed a small pericardial effusion. He was sent to [place] to rule out myocardial infarction. He was continued on Xarelto and was considered to have a pericarditis for which he was placed on colchicine. Today, he appears in the emergency room with shortness of breath and chest discomfort along with near syncope and fainting. He was found to have a moderate pericardial effusion which however was much bigger today than it was on his last CT four days ago. Echocardiogram showed the pericardial effusion and the functional compression. I was then consulted for treatment of his pericardial tamponade. PAST MEDICAL HISTORY: 1. Spinal stenosis. 2. Obstructive sleep apnea. 3. Essential tremor. 4. Atrial fibrillation. 5. Hypertension. 6. Hyperlipidemia. HABITS: Smoking in the very remote past as a teenager. He does not imbibe alcohol anymore. No illicit drugs. PAST SURGERIES: 1. Incisional biopsy of squamous cell carcinoma. 2. Colonic polypectomy. MEDICATIONS AT HOME: - Xarelto 20 mg daily - carvedilol 12.5 mg twice a day - colchicine 0.6 mg daily - atorvastatin 40 mg at bedtime - Tylenol 325 mg every four hours as needed pain - vitamin B with folic acid - Artificial Tears ALLERGIES: - FLECAINIDE and AMIODARONE resulting in bradycardia TRAVEL HISTORY: Not obtained. PET EXPOSURE HISTORY: Not obtained. FAMILY HISTORY: Not relevant to the acute situation. According to Dr. Pedro, there is no family history of cardiac disease. REVIEW OF SYSTEMS: Constitutional: Without fever, chills, sweats or night sweats. Eyes: Without diplopia. Without prior jaundice. Without amaurosis fugax. Nose: Occasional nosebleed, the last being a few weeks ago. Mouth: Has his own teeth. Respiratory: Without orthopnea or paroxysmal nocturnal dyspnea. Without wheezing. He does have the above noted shortness of breath. Cardiac: With the above noted arrhythmias, atrial fibrillation and bradycardias. No history of myocardial infarction. No peripheral edema. GI: Without nausea, vomiting, diarrhea or constipation. : Without hematuria or history of renal stones. Neurologic: Without paresthesias, paralyses, seizures or prior strokes. Endocrine: Without diabetes. Without thyroid disease. Psychiatric: Without pathological anxieties, depressions or psychoses. PHYSICAL EXAMINATION: Well developed, well nourished, white male, anxious and short of breath. Vital Signs: Temperature 96.7, pulse 70 with a regular rate and rhythm and a paced rhythm. Respiratory rate 18 without the use of accessory muscles. He is 99% saturated on 2 liters nasal cannula. Blood pressure 116/64. Eyes: Pupils equal, round and reactive to light. Extraocular muscles intact. Sclerae nonicteric. Head: Normocephalic. Nose without deformity. Mouth shows the mucous membranes to be pink and moist. Lips and commissures without lesions. Teeth are in fairly good repair. Neck: Supple. No jugular venous distention. No subcutaneous emphysema. Trachea is midline. He has 2+ carotid upstrokes. No bruits. No lymphadenopathy or thyromegaly. Lungs: Show equal breath sounds on either side without wheezes, rhonchi, or rales. Percussion note is full to the diaphragm. Cardiac Exam: Without murmurs, clicks, gallops, or rubs. I cannot feel his PMI. Heart sounds are slightly muffled. Abdomen: Soft. Nontender. Bowel sounds are positive. There is no hepatomegaly. No costovertebral angle (CVA) tenderness. Extremities: Show no pretibial edema. No calf tenderness. No differential swelling of the upper extremities. Skin: Warm, dry and perfused. Without cyanosis or mottling, including that of the nail beds and knees. Neurologic: Shows II-XII intact along with gross motor and gross sensation intact. Gait is not tested. Psychiatric shows him to be awake, alert, and oriented times three with appropriate mood and affect and conversational. His white count today is 7.6 with hemoglobin and hematocrit of 12.0 and 34.5 and a platelet count of 229. Differential shows 60% neutrophils, 20% lymphocytes, 10% monocytes. There are no immature forms and no toxic granulations. Blood gases show a pH of 7.41, pCO2 of 28, pO2 of 131 with a base excess of -5.4. Chemistries show normal electrolytes with a total CO2 of 22 and potassium of 4.2. BUN and creatinine are 26 and 1.18 respectively with a calcium of 8.0 and a corresponding albumin of 3.3. Glucose is 143. AST and ALT are normal. Total bilirubin is 3.5. TSH is 2.79. BNP is 198. PT and INR are 18.9 and 1.61 respectively. His chest x-ray shows a normal heart size without a widened mediastinum. Costophrenic angles are sharp. There are no infiltrates. Chest CT confirms the pericardial effusion. The great vessels are intact and there is no aortic dissection. There is spray artifact over the pacer wires, but I do not think they are coming through the cardiac wall. The effusion measures 1.3 cm in its greatest dimension. There is no mediastinal lymphadenopathy paratracheally, although there is some shoddy nodes along the aortic arch. The CAT scan is done with contrast. There is no aortic dissection. Adrenals have a normal configuration and I do not see any liver lesions. His lung marley on the lung windows do not show any emphysematous changes. Some atelectatic changes posteriorly. There are no other infiltrates. IMPRESSION: 1. Pericardial effusion with impending tamponade. 2. Bradycardiac arrhythmias and atrial fibrillation on Xarelto. 3. Hypertension. 4. Spinal stenosis. 5. Sleep apnea. 6. Essential tremor. PLAN AND DISCUSSION: The echocardiogram does not show a very wide window to do a percutaneous drainage. By doing the echo, I cannot find a suitable entry point or path that would be safe, particularly with the patient on Xarelto, to do this percutaneously. I will therefore take him to the operating room to undertake a pericardial window and a tube pericardiostomy. I suspect there is going to be blood within the pericardium secondary to the cardiac compressions combined with the Xarelto. I always have a concern about a recent pacemaker placement and the possibility of perforation.
--- NOTE | 2019-02-28 07:28 | REP ---
Portable chest, 09:05 p.m., single AP view: Comparisons are the chest CT dated 02/27/2019 portable chest is 02/22/2019. There is a right chest tube and a pericardial tube, not present on the comparison studies. There is no p a trace of right pneumothorax. There is an incomplete inspiratory effort with under aeration of the lung marley. Lung marley otherwise clear. There is a dual-chamber pacemaker entering from left. On the previous portable chest. There are skin jesse adjacent to the pacemaker power pack, these have been removed. Impression: New right chest tube in the pericardial II. Trace right pneumothorax. Electronically Signed by Charlie Hayden MD 02/28/2019 07:19 A
--- NOTE | 2019-02-28 07:32 | RO ---
DATE OF PROCEDURE: 02/27/2019 PREPROCEDURE DIAGNOSIS: Pericardial tamponade. POSTPROCEDURE DIAGNOSIS: Pericardial tamponade. PROCEDURE: 1. Pericardial window, xiphoidectomy and partial sternectomy. 2. Tube Pericardiostomy. SURGEON: Dr. Ricardo Hopkins. BACK WINDER: ANESTHESIA: General. FINDINGS: Pericardium was drained of 300 mL of old blood. There was a discrete ecchymosis on the anterior free wall of the right heart. I could not feel any pacer wire coming through or at the surface of the ventricle. I could not reach up to the right atrium. He had a 12-15 mm paradox prior to surgery and upon relieving the tamponade, his blood pressure naet by 33 mmHg systolically. It resolved immediately as the pericardium was drained. Pericardium was opened widely and a pericardium window created. DESCRIPTION OF PROCEDURE: Under satisfactory general anesthesia, patient was prepped and draped in the usual sterile fashion. Because of his preoperative paradox, we were scrubbed and ready to prep and drape should the patient not tolerate induction. The patient tolerated induction without difficulty. A subxiphoid incision was made and carried down to the subcutaneous tissue. Linea alba was identified and divided. The heart arterial wave was noted to disappear when the electrocautery was used and therefore, a sterile magnet was placed over the pacemaker affixing the absent pulse wave. The xiphoid was removed and the sternum debrided and smoothed with a rasp. A retractor was then placed underneath the sternum and the sternum was elevated. He had copious amounts of pericardial fat, which was removed and finally, the pericardium could be visualized. The pericardium was incised with a #15 blade and dark old blood exuded from the incision. The patient's blood pressure immediately nate, thus relieving the tamponade and assuring ourselves that were not within the right ventricle. The pericardium was eventually drained of 300 mL of blood. Pericardial window was then created by incising the pleura and increasing the size of the pericardiotomy. The fluid was sent for the requisite cytologies, bacteriology, cell count and chemistries. Two chest tubes were placed, one in the pericardial well and one in the pleural space, both right angle #24 tubes. The peritoneum was entered and it was oversewn with #3-0 Vicryl suture. The linea alba was then closed with running 0 Vicryl suture and the subcutaneous tissue closed with running #3-0 Vicryl continuous suture and the skin was closed with running #-0 Monocryl subcuticular suture. The patient tolerated the procedure well and left the operating room in satisfactory condition for the recovery room. AISHA
[2019-02-28] MEDS: CHLORHEXIDINE GLUCONATE 0.12 % 15ML UDC (PERIDEX ORAL RINSE) MT SCH ×2 (09:00→20:42)
--- NOTE | 2019-02-28 09:26 | REP ---
Clinical: Pericardial effusion. Technique: PA and lateral. Comparison: 02/27/2019. Findings: Small amount of free air below the diaphragm is now identified and requires correlation. Right-sided chest tube and pericardial tube identified in stable position. Bibasilar atelectasis is appreciated and lateral view demonstrates small pleural effusions. There is no evidence for obvious pneumothorax. The cardiac silhouette demonstrates a normal contour. No evidence for pneumomediastinum or pneumopericardium. Dual lead pacemaker in stable position. Skeletal structures intact. Impression: 1. Small amount of pneumoperitoneum requires correlation. 2. Right chest tube and pericardial tube in stable position. 3. Mild bibasilar atelectasis and small pleural effusions. No pneumothorax. Electronically Signed by Kranthi Bloom MD 02/28/2019 09:17 A
[2019-02-28] MEDS: PANTOPRAZOLE 40MG TAB (PROTONIX) PO SCH (09:42)
[2019-02-28] MEDS: MOM 30ML SUSPENSION UDC PO SCH (09:42)
[2019-02-28] MEDS: COLCHICINE 0.6 MG TAB PO SCH (09:42)
[2019-02-28] MEDS: FLECAINIDE 50MG TABLET PO SCH ×2 (09:42→20:45)
[2019-02-28] MEDS: DOCUSATE SODIUM 100 MG CAP PO SCH ×2 (09:43→20:44)
[2019-02-28] MEDS: CARVedilol 12.5 MG TAB PO SCH ×2 (09:51→20:45)
--- NOTE | 2019-02-28 09:55 | IPN ---
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 He is seen at bedside in the intensive care unit (ICU) today. He states that he is quite sore on the right side of his chest from his procedure yesterday, but denies any other chest pain. His shortness of breath is greatly improved and he denies any lower extremity edema. He states that his breathing is much easier at this time. He denies feeling like his heart is racing or having palpitations. OBJECTIVE: Vitals: Temperature is 98.0, pulse is 69 and regular, respiratory rate is 18 breaths per minute, blood pressure is 105/49 with a mean arterial pressure of 68, and pulse oximetry is 97% on 2 liters of oxygen via nasal cannula. This is a pleasant elderly male of medium body build who is awake and alert. He is cooperative. There is no pallor or cyanosis. His eyes show normal conjunctivae. He has normal oral moisture with no central cyanosis. Jugular venous pulsations appear to be at the sternal angle. He has normal chest configuration and chest expansion with a well-healed left subclavian pacemaker incision. He has ecchymosis tracking down the front of his chest as well as ecchymosis present diffusely over the anterior inferior chest wall with a midline vertical incision that is clean and intact without drainage. He has good air entry over both lung marley with no wheezes, rhonchi or rales present. Pericardial friction rub is heard best at the fifth intercostal space left of the sternum and at the apex. There is no radiation into the carotids, no carotid bruits. Peripheral pulses are symmetrical. Pericardial tube and chest tube exit the abdomen with a dressing that is dry and intact. There is no lower extremity edema. Chest x-ray PA and lateral done this morning, 02/28/2019, independently reviewed, shows that the airway is midline, bony structures are grossly intact. Cardiac silhouette is mildly enlarged and the diaphragmatic angles are clean. Lung marley are free of infiltrate. Pacer leads are present in the right ventricle and in the right atrium. Dual lead pacemaker is present in the left chest. The pericardial tube and the chest tube continue be in the same position. LABORATORY DATA: The patient's hemoglobin is stable at 11.5, hematocrit is 33.0. Mild leukocytosis at 11.3. Platelets are normal at 183. Electrolytes are in balance with a sodium of 137 and potassium 4.8. BUN is mildly elevated at 27 and creatinine is 1.10. Renal function stable. Fasting glucose 133. ASSESSMENT: This is an 83-year-old male who was admitted for a pericardial effusion, most likely from continued administration of oral anticoagulation despite pericarditis and pericardial bruising from receiving external chest compressions. He is postoperative day #1 of pericardial window and pericardiostomy for pericardial tamponade. PLAN: 1. Cardiac tamponade status post pericardial window and pericardiostomy by Dr. Hopkins of thoracic surgery: He has a pericardial tube and a chest tube in place that are unchanged on today's most recent chest x-ray. 2. Pacemaker mediated tachycardia: The patient's rate has been in the 60s and 70s all night with his pacemaker reprogrammed to an AAI device. Arrhythmia stable at this point. 3. Tachybrady syndrome/dual-chamber pacemaker in situ: He continues to be stable with the pacemaker set to pace and sense in the single chamber. Intracardiac electrograms and pacing thresholds remain unchanged. 4. Paroxysmal atrial fibrillation: Anti oral anticoagulation has been held given his pericardial effusion and cardiac tamponade. The patient's rate has been stable in the 60s and 70s and currently he is not in atrial fibrillation. He is currently on flecainide 50 mg twice a day and carvedilol 12.5 mg twice a day. 5. Hypertensive heart disease (benign without heart failure): Current blood pressure is well controlled on carvedilol. Blood pressure has been stable all night. Prerenal azotemia is expected to improve with continued drainage of his cardiac tamponade. 6. 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 7. Mild leukocytosis: Most likely stress related due to his recent surgical procedure. We would expect this to improve over the coming days. We will continue to observe the patient in the ICU and we appreciate Dr. Hopkins's assistance. AISHA
--- NOTE | 2019-02-28 12:45 | ECGEPIP ---
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
[2019-02-28] MEDS: NS 1,000 ML IV SCH (18:11)
[2019-02-28] MEDS: ATORVASTATIN 20 MG TAB PO SCH (20:45)
[2019-02-28] MEDS ORDERED: NS 500 ML IV ONE (22:45)
[2019-03-01] VITALS (18 sets, daily range): BP systolic 88–131; BP diastolic 51–67; O2SAT 96
[2019-03-01] MEDS: LEVALBUTEROL 1.25 MG/0.5 ML CONCENTRATE NEB NEB SCH ×4 (01:35→20:21)
[2019-03-01] MEDS: ceFAZolin SOD 1 GM in D5W MINI-BAG PLUS 50 ML IV SCH ×3 (03:45→17:58)
[2019-03-01] MEDS: KETOROLAC 30 MG/ML VIAL (J1885) IV SCH ×4 (03:46→21:59)
[2019-03-01 04:46] LABS: BASO % 0.1 % (0.0-1.0); EOS % 0.5 % (0.0-3.0); HEMATOCRIT 29.7 % (42.0-52.0); HEMOGLOBIN 10.3 g/dl (13.5-17.5); LYMPH # 1.1 10^3/uL (1.5-4.5); LYMPH % 13.3 % (24.0-44.0); MEAN CORPUSCULAR HEMOGLOBIN 33.6 pg (27.0-33.0); MEAN CORPUSCULAR HGB CONC 34.7 g/dl (32.0-36.5); MEAN CORPUSCULAR VOLUME 96.7 fl (80.0-96.0); MONO # 1.1 10^3/uL (0.0-0.8); MONO % 13.4 % (0.0-5.0); NEUTROPHILS # 5.7 10^3/uL (1.8-7.7); NEUTROPHILS % 72.2 % (36.0-66.0); PLATELET COUNT, AUTOMATED 145 10^3/uL (150-450); RED BLOOD COUNT 3.07 10^6/uL (4.30-6.10); WHITE BLOOD COUNT 7.9 10^3/uL (4.0-10.0)
[2019-03-01 05:06] LABS: CALCIUM LEVEL 7.4 MG/DL (8.8-10.2); CREATININE FOR GFR 1.3 MG/DL (0.70-1.30); GLOMERULAR FILTRATION RATE 56.4 (>35); POTASSIUM SERUM 4.2 MEQ/L (3.5-5.1)
[2019-03-01] MEDS: HEPARIN SOD (PORCINE) 5000 UNITS/ML VIAL SC SCH ×2 (06:42→17:58)
[2019-03-01] MEDS: CHLORHEXIDINE GLUCONATE 0.12 % 15ML UDC (PERIDEX ORAL RINSE) MT SCH (08:57)
[2019-03-01] MEDS: DOCUSATE SODIUM 100 MG CAP PO SCH ×2 (08:58→20:08)
[2019-03-01] MEDS: MOM 30ML SUSPENSION UDC PO SCH (08:58)
[2019-03-01] MEDS: CARVedilol 12.5 MG TAB PO SCH ×2 (09:00→20:08)
[2019-03-01] MEDS: COLCHICINE 0.6 MG TAB PO SCH (09:45)
[2019-03-01] MEDS: PANTOPRAZOLE 40MG TAB (PROTONIX) PO SCH (09:45)
[2019-03-01] MEDS: FLECAINIDE 50MG TABLET PO SCH ×2 (09:45→20:09)
[2019-03-01] MEDS: NS 1,000 ML IV SCH (09:46)
--- NOTE | 2019-03-01 15:01 | REP ---
Clinical: Pericardial effusion. Technique: PA and lateral. Comparison: 02/28/2019. Findings: Small amount of pneumoperitoneum is again noted. A small right apical pneumothorax is appreciated which was not visible on prior examination but slightly increased when compared with portable examination dated 02/27/2019. Air gap measures approximately 14 mm approaching the apex. Pericardial and right-sided chest tubes are in stable position. Cardiac contour is within normal limits and stable. No pneumomediastinum or obvious pneumopericardium is appreciated. Bibasilar atelectasis and small pleural effusions are similar to prior examination. Impression: 1. Small right apical pneumothorax. 2. Small amount of pneumoperitoneum essentially unchanged. 3. Bibasilar atelectasis and small pleural effusions similar to prior examination. Electronically Signed by Kranthi Bloom MD 03/01/2019 08:48 A
--- NOTE | 2019-03-01 15:01 | IPN ---
DATE: 02/28/2019 This is the first postoperative day for Mr. Almazan status post a pericardial window with drainage of 300 mL of bloody pericardial fluid. I am seeing him around 6 o'clock this morning. He has had a stable night of surgery and his pain is being well controlled. His vital signs show a maximum temperature (T-max) of 98.0 with a heart rate which is 68-69 and a paced rhythm with a respiratory rate of 18 without the use of accessory muscles, who is 97% saturated on 2 liters nasal cannula and his blood pressure is 105/49 by the arterial line and 90/54 by the cuff. His intake and output since surgery has been 760 in and 310 out for a positivity of 450 mL. Since the operating room, he has put out 120 mL from the pleural tube and 20 mL from the pericardial tube. Pericardial fluid is still blood-tinged more of the consistence of Miguel-Aid. On physical examination, he has equal breath sounds on either side. I hear some rales on either side. Percussion note is full the diaphragm. Cardiac exam shows a succussion splash with a pericardial rub consistent with the chest tubes. S1, S2 are normal. Abdomen is soft, nontender, slightly tympanitic and distended. Bowel sounds are positive, and he has flatus. There is no costovertebral angle tenderness, no hepatomegaly. Extremities show trace pretibial edema. No calf tenderness. No differential swelling of the upper extremities. Skin is warm, dry, and perfused without cyanosis or mottling, including that of the nail beds and the knees. Neck is supple. There is no jugular venous distention, no subcutaneous emphysema. Trachea is midline. Mouth shows his mucous membranes to be pink and moist. Lips and commissures without lesions. There is no thrush. Eyes show his pupils to be equal and reactive. Extraocular motor intact. Sclerae anicteric. Neurologic shows II-XII intact along with gross motor and gross sensation intact. Gait is not tested. Psychiatric shows him to be awake and alert, oriented times three with appropriate mood and affect and conversational. His white count this morning is 11.3 with hemoglobin and hematocrit of 11.5 and 33.0 respectively. Platelet count is 183 and stable, and differential shows 82% neutrophils, 6% lymphocytes, 10% monocytes. There are no immature forms, no toxic granulations. His electrolytes this morning are essentially normal with a BUN and creatinine of 27 and 1.1 with total CO2 of 22, glucose of 133 and a calcium 8.0. Blood gases show a pH of 7.41, pCO2 of 33, and a pO2 of 106 with a base excess of -2.6, improved from -6.3 in recovery room last night. His pleural fluid has been reported back with a pH of 7.27 with a glucose of 59 and LDH of 886 with a corresponding serum LDH of 193. He has 3069 white cells, 40% of them are nuclear, 39% are PMN. It looks to be exudative inflammatory blood effusion. Cytology is pending. Microbiology does not show any organisms on gram stain. Cultures are pending. His chest x-ray today shows the lung fully expanded to the chest wall. The pericardial tube is anterior rather than pericardial wall. There is air in the diaphragm consistent with entering the peritoneum last night. There is a small pleural effusion on the lateral film, although I cannot lateralize it on the PA film. IMPRESSION: 1. Exudative inflammatory pericardial effusion. 2. Pericardial tamponade relieved through the pericardial window. 3. Bradycardiac arrhythmias with atrial fibrillation on Xarelto. Discontinue for the time being. 4. Hypertension. 5. Spinal stenosis. 6. Sleep apnea. 7. Essential tremor. 8. Tachybrady syndrome. 10. Paroxysmal atrial fibrillation. PLAN AND DISCUSSION: I am gratified of his postoperative thus far. I will continue his chest tubes on suction. His pressure by arterial line is satisfactory with it being a bit soft by cuff. We will continue to observe it. He is on IV replacement and he is due to have breakfast this morning. Hopefully, tomorrow I will be able to remove at least one of the chest tubes, i.e., the pericardial tube. We still do not know where his bloody pericardial effusions from. Will await cytology. I suspect it is secondary to Xarelto after pericarditis caused by cardiac chest compressions on his last admission. AISHA
--- NOTE | 2019-03-01 15:02 | IPN ---
DATE: 03/01/2019 This is now the second postoperative day for Mr. Almazan. He is feeling well and his pain is being well controlled. His vital signs show a T-max of 99.1 with a constant heart rate of 69 with a paced rhythm with a respiratory rate of 18 to 20 without the use of accessory muscles who is 95 to 94% saturated on 1 liter nasal cannula and his blood pressure has been ranging between 88/55 to 106/51. In response to his relative hypertension early this morning, I gave him a fluid bolus of 500 mL of D5 normal saline. His intake and output over the past 24 hours has been recorded as 2240 in and 992 out for a positivity of 1200 mL. He put out 425 mL from the pleural tube and 42 mL from the pericardial tube yesterday. His weight today is 82.8 kg compared to 81.1 kg yesterday. PHYSICAL EXAMINATION: His lungs show equal breath sounds on either side. I hear no wheezes, rhonchi or rales. Percussion note is full to the diaphragm. Cardiac exam shows regular rate and rhythm. I do not hear murmurs, clicks and particular rubs. Yesterday I heard a percussion splash from his chest tube which is no longer present. I cannot feel his point of maximal impulse (PMI). Abdomen is soft and nontender. Bowel sounds are positive. There is no hepatomegaly. No costovertebral angle (CVA) tenderness. Extremities show trace pretibial edema. No calf tenderness. No differential swelling of the upper extremities. Skin is warm, dry and perfused without cyanosis or mottling including that of the nail beds and the knees. Neck is supple. There is no jugular venous distention. No subcutaneous emphysema. Trachea is midline. Mouth shows his mucous membranes to be pink and moist. Lips and commissures without lesions. There is no thrush. Eyes show his pupils to be equal and reactive. Extraocular muscles intact. Sclera anicteric. Neuro shows II through XII intact. Gross motor and gross sensation intact. Gait is not tested. Psychiatric shows him to be awake, alert and oriented times three with appropriate mood, affect and conversational. His white count is 7.9 today with a hemoglobin and hematocrit of 10.3 and 29.7 with a platelet count of 145. Differential shows 72% neutrophils, 13% lymphocytes, 13% monocytes. There are no immature forms. No toxic granulations. His electrolytes are normal today with a BUN and creatinine of 39 and 1.3 from 27 and 1.1 yesterday. Glucose is 108 with a calcium of 7.4. Pericardial fluid was discussed yesterday consistent with hemorrhage. His microbiology shows no growth in both aerobic and anaerobic cultures and organisms. Chest x-ray today shows the lung fully expanded to the chest wall. He has a small sliver of pneumothorax on the right side and some under the diaphragm secondary to getting into the peritoneum at the time of his pericardial window. There is blunting of the right costophrenic angle additionally. There is blunting of the right costophrenic angle additionally. His lateral chest x-ray also shows blunting of the costophrenic angle but the fluid is much improved from yesterday. IMPRESSION: 1. Hemorrhagic pericardial effusion probably secondary to prior trauma. 2. Bradycardic arrhythmias with atrial fibrillation, previously on Xarelto. 3. Hypertension. 4. Spinal stenosis. 5. Sleep apnea. 6. Essential tremor. PLAN AND DISCUSSION: I will take his chest tubes off suction today. Will continue to mobilize him and encourage by mouth intake and lung expansion therapy.
[2019-03-01] MEDS: ATORVASTATIN 20 MG TAB PO SCH (20:07)
[2019-03-02] VITALS (7 sets, daily range): BP systolic 95–145; BP diastolic 50–75
[2019-03-02] MEDS: LEVALBUTEROL 1.25 MG/0.5 ML CONCENTRATE NEB NEB SCH ×4 (00:51→19:45)
[2019-03-02] MEDS: KETOROLAC 30 MG/ML VIAL (J1885) IV SCH ×4 (04:12→21:16)
[2019-03-02 04:29] LABS: BASO % 0.2 % (0.0-1.0); EOS # 0.1 10^3/uL (0.0-0.50); EOS % 1.1 % (0.0-3.0); HEMATOCRIT 28.1 % (42.0-52.0); HEMOGLOBIN 9.3 g/dl (13.5-17.5); LYMPH # 0.9 10^3/uL (1.5-4.5); LYMPH % 15.1 % (24.0-44.0); MEAN CORPUSCULAR HEMOGLOBIN 31.7 pg (27.0-33.0); MEAN CORPUSCULAR HGB CONC 33.1 g/dl (32.0-36.5); MEAN CORPUSCULAR VOLUME 95.9 fl (80.0-96.0); MONO # 0.8 10^3/uL (0.0-0.8); MONO % 12.2 % (0.0-5.0); NEUTROPHILS # 4.4 10^3/uL (1.8-7.7); NEUTROPHILS % 70.8 % (36.0-66.0); PLATELET COUNT, AUTOMATED 144 10^3/uL (150-450); RED BLOOD COUNT 2.93 10^6/uL (4.30-6.10); WHITE BLOOD COUNT 6.2 10^3/uL (4.0-10.0)
[2019-03-02 04:51] LABS: BLOOD UREA NITROGEN 30 MG/DL (7-18); CALCIUM LEVEL 8.1 MG/DL (8.8-10.2); CARBON DIOXIDE LEVEL 25 MEQ/L (21-32); CHLORIDE LEVEL 110 MEQ/L (98-107); CREATININE FOR GFR 1.12 MG/DL (0.70-1.30); GLOMERULAR FILTRATION RATE > 60.0 (>35); GLUCOSE, FASTING 96 MG/DL (70-100); POTASSIUM SERUM 4.1 MEQ/L (3.5-5.1); SODIUM LEVEL 138 MEQ/L (136-145)
[2019-03-02] MEDS: HEPARIN SOD (PORCINE) 5000 UNITS/ML VIAL SC SCH ×2 (06:29→17:51)
--- NOTE | 2019-03-02 07:17 | IPN ---
DATE: 03/01/2019 Mr. Bam Almazan was seen earlier today, he was sitting in a chair in his room in intensive care unit (ICU) in no acute distress. It seems that last night, he was hypotensive and had dropped his urine output. He was giving normal saline first a bolus of 500 mL, then started on normal saline at 60 mL/h. This morning, his urinary output has picked up and his blood pressure has improved but still on the low side. When I saw him, he denies any chest pain, shortness of breath, palpitations, but pain at the site of the chest tube insertion. There is no nausea, vomiting, diarrhea, melena, or hematemesis. There is no focal manifestation. PHYSICAL EXAMINATION: The patient is alert and oriented, in no acute distress at rest. His vital signs earlier today when I saw him revealed a blood pressure of 123/67 with a pulse of 69, respirations 18, and his maximum temperature was 98.3 degrees Fahrenheit with an oxygen saturation 94-95% on 1 liter nasal cannula. Examination of the head: Atraumatic. Neck is supple and no jugular venous distention (JVD) appreciated while sitting up in a chair. The lungs did not reveal any wheezing or crackles. The heart examination revealed a regular heart sound without gallops. The point of maximum impulse (PMI) is nondisplaced. There is no rub. I could not appreciate any murmurs. Abdomen is soft. Extremities revealed no pedal edema. Neurologic examination: Negative for focal deficit. LABORATORY DATA: CBC done today revealed a WBC of 7.9, hemoglobin 10.3, hematocrit 29.7, and platelet 145,000. BMP revealed a sodium of 139, potassium 4.2, chloride 108, CO2 24, BUN 39, creatinine 1.3, and GFR of 56.4. Fasting glucose 118 and calcium 7.4. TELEMETRY: Revealed pacemaker activity. IMPRESSION: 1. History of paroxysmal atrial fibrillation and underlying sick sinus syndrome, status post recent permanent pacemaker implantation. 2. Pericardial effusion with cardiac tamponade diagnosed after his permanent pacemaker implantation. The patient had pericardial pseudocysts with Dr. Hopkins. 3. History of hypertension. 4. Valvular heart disease involving the aortic valve and mitral valve. 5. Status post hypotensive episode, 02/28/2019. 6. Anemia. Mr. Bam Almazan seems to be stable at this present time from a cardiac point of view status post hypotensive episodes after his pericardial window for cardiac tamponade. His blood pressure has improved, same as for his urinary output. I will continue the IV fluids and will hold his carvedilol for this morning. Most likely will resume that later today if he continues to be stable. His anemia, presumably because of the hemorrhagic pericardial effusion secondary to trauma related to the pacemaker implantation. Otherwise, his pacemaker seems to be functioning well. He will be monitored over the weekend. Dr. Pedro will seen him again on 03/03/2019. AISHA
[2019-03-02] MEDS: FLECAINIDE 50MG TABLET PO SCH ×2 (08:05→21:16)
[2019-03-02] MEDS: COLCHICINE 0.6 MG TAB PO SCH (08:05)
[2019-03-02] MEDS: PANTOPRAZOLE 40MG TAB (PROTONIX) PO SCH (08:06)
[2019-03-02] MEDS: MOM 30ML SUSPENSION UDC PO SCH (08:06)
[2019-03-02] MEDS: CARVedilol 12.5 MG TAB PO SCH ×2 (08:06→21:16)
[2019-03-02] MEDS: DOCUSATE SODIUM 100 MG CAP PO SCH ×2 (08:06→21:00)
--- NOTE | 2019-03-02 08:39 | REP ---
Clinical: Follow up pericardial effusion. Technique: PA and lateral. Comparison: 03/01/2019. Findings: Pericardial and right chest tubes are in stable position. Mediastinum and cardiac silhouette are stable in appearance. Previously noted pneumoperitoneum not visible on current exam. Bibasilar opacities and small pleural effusions along with small right apical pneumothorax again identified and essentially unchanged. Impression: 1. Small right apical pneumothorax unchanged. 2. Bibasilar opacities and pleural effusions remain stable. Electronically Signed by Kranthi Bloom MD 03/02/2019 08:29 A
[2019-03-02] MEDS ORDERED: FUROSEMIDE 40 MG/4 ML VIAL (J1940) IV ONE (11:00)
--- NOTE | 2019-03-02 11:09 | IPN ---
DATE: 03/02/2019 This is now the second postoperative day for Mr. Almazan. His pain is being well controlled and he has put out minimal from the pericardial tube. He is feeling better and breathing better. His vital signs show a T-max of 98.8 with a heart rate that is constant 69 and paced. Respiratory rate is constant 16 and he is 97% saturated on 1 liter nasal cannula. Blood pressure is ranging between 116/66 to 111/59. His intake and output over the past 24 hours has been recorded as 2270 in and 1350 out for a positivity of 920 mL. He has put out 20 mL from the mediastinal tube and 355 mL from the pleural tube. His weight today is 82.2 kg. PHYSICAL EXAMINATION: His lungs show normal vesicular sounds. I hear no wheezes, rhonchi or rales. Percussion note is full to the diaphragm. Cardiac exam is without murmurs, clicks, gallops or rubs and I hear no gurgling from the chest tube. S1 and S2 are normal. I cannot feel his point of maximal impulse (PMI). Abdomen is soft and nontender. Bowel sounds are positive. There is no hepatomegaly. No costovertebral angle (CVA) tenderness. Extremities show no pretibial edema. No calf tenderness. No differential swelling of the upper extremities. Skin is warm, dry and perfused without cyanosis or mottling including that of the nail beds and the knees. Neck is supple. There is no jugular venous distention. No subcutaneous emphysema. Trachea is midline. Mouth shows his mucous membranes to be pink and moist. Lips and commissures without lesions. There is no thrush. Eyes show his pupils to be equal and reactive. Extraocular muscles intact. Sclera anicteric. Neuro shows II through XII intact. Gross motor and gross sensation intact. Gait is not tested. Psychiatric shows him to be awake, alert and oriented times three with appropriate mood, affect and conversational. His white count is 6.2 with a hemoglobin and hematocrit of 9.3 and 28.1, down from 10.3 and 29.7 yesterday. Platelet count is 144 and stable and differential shows 72% neutrophils, 15% lymphocytes, 12% monocytes. There are no immature forms. No toxic granulations. His electrolytes are normal with a BUN and creatinine of 30 and 1.1, improved from 39 and 1.3 yesterday. Glucose is 96 with a calcium of 8.1. There are no new results from microbiology and pathology is still pending. . His chest x-ray shows some blunting of the left costophrenic angle and a small meniscus on the lateral film, probably on the left side. The pericardial tube is anterior. I see no infiltrates either on the PA or the lateral film other than the atelectasis and small blunting of the costophrenic angle on the lateral film. IMPRESSION: 1. Hemorrhagic pericardial effusion, probably secondary to prior trauma, i.e. chest compressions along with anticoagulation. 2. Bradycardic arhythmias with atrial fibrillation, previously on Xarelto. 3. Hypertension. 4. Spinal stenosis. 5. Sleep apnea. 6. Essential tremor. PLAN AND DISCUSSION: I will remove his pericardial tube today. He has been positive the last few days and I will gently diurese him. Hopefully his pleural tube could come out tomorrow.
[2019-03-02] MEDS ORDERED: FLECAINIDE 50MG TABLET PO ONE (20:00)
[2019-03-02] MEDS: ATORVASTATIN 20 MG TAB PO SCH (21:15)
[2019-03-03] VITALS: BP 113/75
--- NOTE | 2019-03-03 01:16 | ECGEPIP ---
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-T ABNORMALITY Electronically Signed on 03-03-2019 1:15:57 EDT by Siva Best
--- NOTE | 2019-03-03 01:23 | ECGEPIP ---
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
[2019-03-03] MEDS: LEVALBUTEROL 1.25 MG/0.5 ML CONCENTRATE NEB NEB SCH ×4 (01:32→19:35)
[2019-03-03 04:00] VITALS: BP 95/53
[2019-03-03] MEDS: KETOROLAC 30 MG/ML VIAL (J1885) IV SCH ×3 (05:09→16:00)
[2019-03-03] MEDS: HEPARIN SOD (PORCINE) 5000 UNITS/ML VIAL SC SCH ×2 (05:09→18:14)
[2019-03-03 05:10] LABS: BASO % 0.2 % (0.0-1.0); EOS # 0.2 10^3/uL (0.0-0.50); EOS % 3.6 % (0.0-3.0); HEMATOCRIT 30.5 % (42.0-52.0); HEMOGLOBIN 10.4 g/dl (13.5-17.5); LYMPH % 19.4 % (24.0-44.0); MEAN CORPUSCULAR HEMOGLOBIN 32.8 pg (27.0-33.0); MEAN CORPUSCULAR HGB CONC 34.1 g/dl (32.0-36.5); MEAN CORPUSCULAR VOLUME 96.2 fl (80.0-96.0); MONO # 0.6 10^3/uL (0.0-0.8); MONO % 12.2 % (0.0-5.0); NEUTROPHILS # 3.2 10^3/uL (1.8-7.7); NEUTROPHILS % 64.2 % (36.0-66.0); PLATELET COUNT, AUTOMATED 171 10^3/uL (150-450); RED BLOOD COUNT 3.17 10^6/uL (4.30-6.10)
[2019-03-03 05:32] LABS: BLOOD UREA NITROGEN 31 MG/DL (7-18); CALCIUM LEVEL 7.5 MG/DL (8.8-10.2); CARBON DIOXIDE LEVEL 24 MEQ/L (21-32); CHLORIDE LEVEL 108 MEQ/L (98-107); CREATININE FOR GFR 1.17 MG/DL (0.70-1.30); GLOMERULAR FILTRATION RATE > 60.0 (>35); GLUCOSE, FASTING 100 MG/DL (70-100); POTASSIUM SERUM 3.8 MEQ/L (3.5-5.1); SODIUM LEVEL 140 MEQ/L (136-145)
--- NOTE | 2019-03-03 06:57 | IPN ---
DATE: 03/02/2019 Mr. Bam Almazan was seen earlier today in the evening and he was laying supine in bed in no acute distress at rest. His nurse was at bedside. He went into atrial fibrillation earlier in the afternoon and he is very concerned about that. It seems that he does not tolerate it well and does not tolerate some of the medications, he was on amiodarone, and he said that he could not tolerate that. He denies any chest pain. There was no orthopnea or paroxysmal nocturnal dyspnea (PND) when I saw him. There is no pedal edema. There is no focal manifestation. There is no report of bleeding. PHYSICAL EXAMINATION: The patient is alert and oriented, in no acute distress at rest, and his vital signs revealed a blood pressure of 119/75 with a pulse of 104, respiration 16 and maximum temperature was 98.2 degrees Fahrenheit with an oxygenation saturation of 97% on room air. He has a positive fluid balance of 920 mL for 03/01/2019. Examination of the Head: Atraumatic. Neck: Neck is supple and no carotid bruits or jugular venous distention (JVD) elicited. Lungs: Did not reveal any wheezing. Minimal crackles noted at the bases. Heart examination revealed irregular heart sounds without gallops. The PMI is not displaced. There is no rub. Abdomen: Soft and nontender. Extremities: No pedal edema. Neurologic Examination: Was limited, but the patient was able to move all his extremities while at bedside. LABORATORIES: CBC revealed a WBC of 6.2, hemoglobin 9.3, hematocrit 28.1 and platelets 144,000. BMP revealed a sodium of 138, potassium 4.1, chloride 110, CO2 25, BUN 30, creatinine 1.12, GFR more than 60, fasting glucose 96 and calcium 8.1. Chest x-ray revealed a small right apical pneumothorax that is unchanged. IMPRESSION: Mr. Bam Almazan is stable from a cardiac point of view with paroxysmal atrial fibrillation. He is very concerned about his atrial fibrillation. It does not seem that he tolerates medication well and he might benefit from ablation and this was discussed with him. I will give him tonight a 100 mg dose of flecainide and will continue with the beta lizzy/carvedilol. He will be monitored, he was reassured. His blood pressure remained stable. His case was discussed earlier today with Dr. Hopkins, his cardiothoracic surgeon, and the plan is to remove the chest tube in the morning of 03/03/2019. AISHA
[2019-03-03 07:42] VITALS: BP 106/75
[2019-03-03] MEDS: DOCUSATE SODIUM 100 MG CAP PO SCH (08:19)
[2019-03-03] MEDS: MOM 30ML SUSPENSION UDC PO SCH (08:19)
--- NOTE | 2019-03-03 08:22 | REP ---
Clinical: Pericardial effusion followup. Technique: PA and lateral. Comparison: 03/02/2019. Findings: Previously identified pericardial drain has been removed. Right chest tube in stable position. Small right apical pneumothorax unchanged. Bibasilar infiltrate/atelectasis and small pleural effusions remain essentially stable. Mediastinum and cardiac silhouette are stable. Impression: 1. Pericardial drainage catheter removed. 2. Small stable right apical pneumothorax. 3. Mild bibasilar atelectasis/infiltrates and small pleural effusions unchanged. Electronically Signed by Kranthi Bloom MD 03/03/2019 08:14 A
[2019-03-03] MEDS: COLCHICINE 0.6 MG TAB PO SCH (09:21)
[2019-03-03] MEDS: CARVedilol 12.5 MG TAB PO SCH ×2 (09:22→20:04)
[2019-03-03] MEDS: FLECAINIDE 50MG TABLET PO SCH ×2 (09:22→20:04)
[2019-03-03] MEDS: PANTOPRAZOLE 40MG TAB (PROTONIX) PO SCH (09:22)
[2019-03-03] MEDS ORDERED: FUROSEMIDE 40 MG/4 ML VIAL (J1940) IV ONE (11:30)
[2019-03-03 12:00] VITALS: BP 99/61
[2019-03-03 16:00] VITALS: BP 122/60
[2019-03-03] MEDS ORDERED: PILL CUTTER 1 EACH XX PRN (18:30)
--- NOTE | 2019-03-03 18:56 | IPN ---
DATE: 03/03/2019 CARDIOLOGY PROGRESS NOTE: SUBJECTIVE: The patient has had his pericardial and pleural tubes pulled this morning and has been up ambulating short distances and feeling reasonably well. At this time, he has no chest discomfort with deep inspiration. Had been aware of palpitations earlier today with his atrial fibrillation. No current sensation. Claims his breathing is comfortable. OBJECTIVE: Pleasant elderly male of medium body build, laying comfortably, reasonably flat. Heart rate currently 70 beats per minute (bpm) and regular, blood pressure 122/68, respiratory rate 18 with oxygen saturation 95% on room air. Afebrile. His weight today curiously was not measured. No pallor or cyanosis. Normal oral moisture. Trachea midline. Neck veins were approximately 2 cm above the sternal angle. His pacemaker and lower sternal incisions appear to be healing well. His ecchymotic areas have been clearing. Has fairly good air entry over both lung marley with few inspiratory rales over the right lung but not over the left. No longer has a pericardial rub. No current lower leg swelling but has 1 mm sacral pitting. SAMPLE PROCESSOR: As mentioned above, earlier today did have a recurrent bout of atrial fibrillation that terminated at approximately 2:00 p.m. The patient reports the observed rate to have been between 100 and 110 beats per minute on his current combination medical therapy. Posteroanterior (PA) and left lateral chest x-ray today shows pleural tube still in the right pleural space, stable pacing lead position, persistent small bilateral pleural effusions that appear improving from prior studies. LABORATORY DATA: Hemoglobin today was 10.4. Normal white blood cell count and platelet count. Chemistry confirms electrolyte balance with potassium 3.8, BUN was slightly up to 31 from admission 26 and creatinine essentially stable at 1.17. Fasting glucose was 100. IMPRESSION/PLAN: 1. Paroxysmal atrial fibrillation: At this time, he continues to have episodes of paroxysmal atrial fibrillation but his ventricular response has been controlled. He has been on 50 mg twice a day for four days. I have increased his dosage to 75 mg twice a day. He will continue on the same carvedilol 12.5 mg twice a day. At this point, we have not resumed his oral anticoagulant therapy but we will consider this starting tomorrow. 2. Post chest compression, pericardial effusion with cardiac tamponade/post pericardial drainage with window: At this point, he has no symptoms of cardiac compression. His previously noted pericardial rub with his pericardial tube in place is no longer audible. We intend to obtain a followup echocardiogram/Doppler study prior to his discharge home. He remains on colchicine 0.6 mg daily. We plan to discontinue his Toradol and narcotic therapy. 3. 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 We had tried a host of different program changes including postventricular atrial refractory period to no avail. No program change was made today. 4. Hypertensive heart disease (benign without heart failure): Does have some fluid accumulation still related to his chest trauma and IV fluid resuscitation. I suspect this will clear on its own. Followup chest x-ray is pending in the morning. Current blood pressure is well-controlled on carvedilol. Slight degree of prerenal azotemia. 5. Mitral and aortic valve disorder (nonrheumatic): Remains free of audible murmur despite prior echocardiographic evidence of mild valvular insufficiency. We are cautiously optimistic he will be discharged home tomorrow after we have an opportunity to see his chest x-ray and echocardiogram. In the meantime, we will continue to ambulate the patient.
[2019-03-03 20:00] VITALS: BP 116/66
[2019-03-04] VITALS (7 sets, daily range): BP systolic 103–144; BP diastolic 57–83
[2019-03-04] MEDS: LEVALBUTEROL 1.25 MG/0.5 ML CONCENTRATE NEB NEB SCH ×4 (01:33→19:31)
[2019-03-04 06:00] LABS: BASO % 0.2 % (0.0-1.0); EOS # 0.3 10^3/uL (0.0-0.50); EOS % 5.6 % (0.0-3.0); HEMATOCRIT 29.4 % (42.0-52.0); HEMOGLOBIN 9.9 g/dl (13.5-17.5); LYMPH # 1.1 10^3/uL (1.5-4.5); MEAN CORPUSCULAR HEMOGLOBIN 32.7 pg (27.0-33.0); MEAN CORPUSCULAR HGB CONC 33.7 g/dl (32.0-36.5); MONO # 0.7 10^3/uL (0.0-0.8); MONO % 15.2 % (0.0-5.0); NEUTROPHILS # 2.5 10^3/uL (1.8-7.7); NEUTROPHILS % 54.4 % (36.0-66.0); PLATELET COUNT, AUTOMATED 181 10^3/uL (150-450); RED BLOOD COUNT 3.03 10^6/uL (4.30-6.10); WHITE BLOOD COUNT 4.6 10^3/uL (4.0-10.0)
[2019-03-04 06:53] LABS: BLOOD UREA NITROGEN 26 MG/DL (7-18); CALCIUM LEVEL 8.2 MG/DL (8.8-10.2); CARBON DIOXIDE LEVEL 26 MEQ/L (21-32); CHLORIDE LEVEL 108 MEQ/L (98-107); CREATININE FOR GFR 1.12 MG/DL (0.70-1.30); GLOMERULAR FILTRATION RATE > 60.0 (>35); GLUCOSE, FASTING 89 MG/DL (70-100); POTASSIUM SERUM 3.9 MEQ/L (3.5-5.1); SODIUM LEVEL 140 MEQ/L (136-145)
--- NOTE | 2019-03-04 07:44 | ECGEPIP ---
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
--- NOTE | 2019-03-04 08:07 | REP ---
Clinical: Follow up pericardial effusion. Technique: PA and lateral. Comparison: 03/03/2019. Findings: Chest tube has been removed. A minuscule residual right apical pneumothorax is suggested and appears decreased. Mediastinum and cardiac silhouette are stable. Bibasilar atelectasis and small pleural effusions essentially unchanged. Impression: 1. Status post chest tube removal with minuscule residual right apical pneumothorax. 2. Bibasilar atelectasis and pleural effusions unchanged. Electronically Signed by Kranthi Bloom MD 03/04/2019 07:58 A
[2019-03-04] MEDS: PANTOPRAZOLE 40MG TAB (PROTONIX) PO SCH (10:22)
[2019-03-04] MEDS: CARVedilol 12.5 MG TAB PO SCH ×2 (10:26→19:12)
[2019-03-04] MEDS: FLECAINIDE 50MG TABLET PO SCH ×2 (10:28→19:55)
[2019-03-04] MEDS: COLCHICINE 0.6 MG TAB PO SCH (12:13)
[2019-03-04] MEDS ORDERED: FUROSEMIDE 40 MG/4 ML VIAL (J1940) IV ONE (18:15)
[2019-03-04] MEDS: SPIRONOLACTONE 12.5MG PER 1/2 TABLET PO SCH (19:09)
--- NOTE | 2019-03-04 19:28 | IPN ---
DATE: 03/04/2019 CARDIOLOGY PROGRESS NOTE: SUBJECTIVE: The patient has noticed intermittent dyspnea and his rhythm has been intermittently out of sync. Currently has no chest pain or dizziness. Appears to be tolerating his medications without adverse effect. OBJECTIVE: Pleasant, elderly male of medium body build currently sitting on the edge of his bed without any distress. Heart rate 110-120 beats per minute (bpm) and irregular, blood pressure 140/67, respiratory rate 18, oxygen saturation 98% on room air. Afebrile. His weight today is down to 75.5 kg, only slightly less than he was at the time of admission. EXERCISE EQUIPMENT SPECIALIST: Frustratingly, he continues to alternate from atrially paced rhythm to atrial fibrillation with somewhat rapid ventricular response. FOLLOWUP ECHOCARDIOGRAM: This shows an impressive improvement from 02/27/2019. He has no more than a minuscule amount of posterior pericardial fluid and no sign of cardiac compression. Has mild concentric left ventricular hypertrophy with hyperkinetic wall motion, a mildly dilated left atrium, but current estimated mean left atrial pressure is still elevated as are his pulmonary arterial pressure and central venous pressures. We can more clearly visualize his aortic valve which is sclerotic and leaks at least a mild to moderate degree. His mitral valve is also showing degenerative changes with moderate mitral insufficiency. BLOOD WORK: Hemoglobin today is 9.9 with normal white blood cell count and platelet count. Electrolytes were in balance with BUN down to 26 today, creatinine stable at 1.12. Normal serum fasting glucose. PA and left lateral chest x-ray this morning does show improvement in vascular congestion and reduction in his pleural effusions. IMPRESSION/PLAN: 1. Paroxysmal atrial fibrillation: Frustratingly, he continues to have paroxysms of this atrial tachyarrhythmia despite his current flecainide therapy and the carvedilol. Fortunately today, he has been free of any symptom or sign of systemic thromboembolic event despite these alterations. We will hope to consider resuming his Xarelto one week removed from removal of his chest tubes. I suspect getting rid of more fluid will reduce his left atrial stretch and likelihood of atrial fibrillation. I have also planned to increase his flecainide to 100 mg twice a day and his carvedilol to 12.5 mg by mouth every six hours, hold for systolic blood pressure less than 130. A followup EKG will be obtained in the morning. 2. Post chest compression pericardial effusions/cardiac tamponade/post pericardial tube drainage: As mentioned, his repeat echocardiogram shows a dramatic improvement from admission. He certainly has no signs of cardiac compression at this time. Remains on colchicine. No further chest discomforts. As mentioned, we hope to resume his oral anticoagulation one week following removal of his chest tubes, especially in light of his recurrent paroxysms of atrial fibrillation. 3. Heart failure (diastolic)/acute on chronic: With his fluid resuscitation, now his tamponade has been relieved, systemic fluid has been reabsorbed resulting in elevated mean left atrial and pulmonary venous pressures. He is on a modest salt and fluid intake restriction at this time and we plan to administer additional IV Lasix tonight and in the morning. Has followup chemistry for the morning as well. In light of his atrial fibrillation and his diastolic left ventricular dysfunction, we have added low-dose spirolactone. This is also been shown to reduce his risk of atrial fibrillation. 4. 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 His pacemaker incision has healed well. 5. Hypertensive heart disease (benign with heart failure): Current blood pressure is slightly suboptimally controlled but I anticipate this will improve with additional diuretic therapy and slight increase in his carvedilol along with introduction of low-dose spirolactone. Continues to have a mild degree of azotemia, which is slightly improved from yesterday. 6. 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 Again remains free of any symptom or sign of endocarditis. I have discussed the above impressions with the patient who appears to understand the need for additional hospitalization.
[2019-03-05] MEDS: LEVALBUTEROL 1.25 MG/0.5 ML CONCENTRATE NEB NEB SCH ×4 (01:33→20:57)
[2019-03-05 04:45] VITALS: BP 123/75
[2019-03-05 05:52] VITALS: BP 122/70
[2019-03-05] MEDS: CARVedilol 12.5 MG TAB PO SCH ×2 (05:52)
[2019-03-05] MEDS ORDERED: FUROSEMIDE 40 MG/4 ML VIAL (J1940) IV ONE (06:00)
[2019-03-05 06:16] LABS: BASO % 0.2 % (0.0-1.0); EOS # 0.2 10^3/uL (0.0-0.50); EOS % 4.8 % (0.0-3.0); HEMOGLOBIN 10.8 g/dl (13.5-17.5); LYMPH # 1.2 10^3/uL (1.5-4.5); MEAN CORPUSCULAR HGB CONC 33.8 g/dl (32.0-36.5); MEAN CORPUSCULAR VOLUME 94.7 fl (80.0-96.0); MONO # 0.8 10^3/uL (0.0-0.8); NEUTROPHILS # 2.8 10^3/uL (1.8-7.7); NEUTROPHILS % 55.6 % (36.0-66.0); PLATELET COUNT, AUTOMATED 211 10^3/uL (150-450); RED BLOOD COUNT 3.38 10^6/uL (4.30-6.10)
--- NOTE | 2019-03-05 06:24 | ECHO ---
DATE OF PROCEDURE: 03/04/2019 DATE OF : 1935 AGE: 83 GENDER: Male HEIGHT: 68 inches WEIGHT: 180 pounds BODY SURFACE AREA: 1.96 meter squared INPATIENT: PCU - Room 3225 REFERRING PHYSICIAN: Dr. Pedro INDICATION: Pericardial effusion - post drainage procedure. MEASUREMENTS 2-D Measurements: RV: 3.4 cm LV: 4.2 cm Septum: 1.3 cm Posterior wall: 1.3 cm Aortic root: 3.5 cm LA: 4.3 cm LVEF: 75%. Doppler Measurements: AV: 1.35 m/s LVOT: 1.19 m/s LVOT diameter: 2.0 cm MV - E 110 A 74 EA ratio: 1.5 Early mitral deceleration time: 180 ms E prime: 7 A prime: 5 E/E prime ratio: 15.7 PCWP: 22 mmHg PV: 0.8 m/s Pulmonary artery acceleration time: 88 ms RVSP: 48 mmHg IVC: 2.1 cm COMMENTS: Consistent atrially paced rhythm with spontaneous AV conduction and narrow QRS complexes. M-mode and two-dimensional echocardiography was performed with pulsed, continuous wave, color flow and tissue Doppler studies. Mild concentric left ventricle hypertrophy with hyperkinetic wall motion. Mildly dilated left atrium with impairment of LV diastolic function and elevated estimated mean left atrial pressure. Normal right heart chamber sizes and motion with Doppler evidence of moderate pulmonary hypertension. IVC size upper limits of normal with reduced respiratory collapse in keeping with a central venous pressure of 10-15 mmHg. Aortic valvular sclerosis without stenosis, but mild-moderate insufficiency. Normal aortic root size. Mild mitral annular calcification without inflow tract obstruction, but moderate insufficiency. Normal appearing tricuspid valve with moderate insufficiency. Pacing leads can be visualized traversing right heart structures, but no separate intracardiac mass. Minuscule posterior pericardial effusion - a dramatic improvement from study dated 02/27/2019. Persistent small left pleural effusion. MTDD
[2019-03-05 06:47] LABS: BLOOD UREA NITROGEN 22 MG/DL (7-18); CALCIUM LEVEL 8.3 MG/DL (8.8-10.2); CARBON DIOXIDE LEVEL 28 MEQ/L (21-32); CHLORIDE LEVEL 104 MEQ/L (98-107); CREATININE FOR GFR 1.16 MG/DL (0.70-1.30); GLOMERULAR FILTRATION RATE > 60.0 (>35); GLUCOSE, FASTING 98 MG/DL (70-100); POTASSIUM SERUM 3.8 MEQ/L (3.5-5.1); SODIUM LEVEL 140 MEQ/L (136-145)
--- NOTE | 2019-03-05 07:21 | ECGEPIP ---
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
--- NOTE | 2019-03-05 07:25 | ECGEPIP ---
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
[2019-03-05 07:44] VITALS: BP 100/82
[2019-03-05] MEDS ORDERED: DIGOXIN INJ 0.5 MG/2 ML AMP (J1160) IV ONE ×3 (08:00→11:30)
[2019-03-05] MEDS: FLECAINIDE 50MG TABLET PO SCH ×2 (08:10→21:11)
[2019-03-05] MEDS: PANTOPRAZOLE 40MG TAB (PROTONIX) PO SCH (08:10)
[2019-03-05] MEDS: SPIRONOLACTONE 12.5MG PER 1/2 TABLET PO SCH (08:10)
[2019-03-05] MEDS: COLCHICINE 0.6 MG TAB PO SCH (08:10)
[2019-03-05] MEDS: METOPROLOL TART 25 MG TABLET PO SCH ×2 (12:37→18:22)
[2019-03-05] MEDS ORDERED: SLF 3 ML SYR IV PRN (15:45)
--- NOTE | 2019-03-05 16:18 | IPN ---
DATE: 03/05/2019 CARDIOLOGY PROGRESS NOTE SUBJECTIVE: The patient has been up in his room without problem today, but is aware that his atrial fibrillation has recurred. He claims to be tolerating his medications without adverse effect. No lateralizing neurological deficit to suggest embolic phenomenon. OBJECTIVE: Pleasant, elderly male of medium body build, sitting comfortably. Current heart rate 115 beats per minute and irregular, blood pressure 104/64 sitting, respiratory rate 18, oxygen saturation 96% on room air, afebrile. Weight today is recorded at 70 kg, down 5.5 kg from yesterday ??. Breathing comfortably. Neck veins were not visible above his clavicle with him sitting. There is no more than plus/minus lower leg pitting. 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 With Digoxin and increased flecainide therapy, his rate was still relatively fast at 114 beats per minute. Electrocardiogram (EKG): Tracing taken this morning showed atrial fibrillation with at least somewhat rapid ventricular response averaging 108 beats per minute. Nonspecified ST-T wave abnormalities. Atrial fibrillation replaced his atrially paced rhythm observed on his tracing yesterday. Blood work: Hemoglobin today is stable at 10.8, normal white blood cell count and platelet count. Chemistry showed electrolyte balance with BUN 22, creatinine 1.1, fasting glucose 98. IMPRESSION/PLAN: 1. Recurrent paroxysmal atrial fibrillation. As mentioned yesterday, frustratingly, he continues to have paroxysmal atrial fibrillation with rapid ventricular response despite his flecainide and carvedilol. This is likely related to ongoing pericardial inflammation. I have explained this to the patient who appears to understand. We are taking advantage of ongoing sales engineer account manager to adjust his negative chronotropic therapy. In light of his soft blood pressure, he has not been getting his carvedilol so I have replaced this agent with metoprolol 25 mg by mouth every 6 hours as long as his systolic blood pressure is greater than 90. No changes have been made to his flecainide 100 mg twice a day. We have started him on digoxin and he has received a loading dose total of 0.75 mg today. Followup electrocardiogram (EKG) will be obtained in the morning. Remains off full anticoagulation because of his recent hemorrhagic pericardial effusion and tamponade. We hope to resume this agent one week following removal of his chest tubes, either March 09 or . We have discussed future referral for radiofrequency ablation of his atrial tachyarrhythmia. 2. Post chest compression pericardial effusion/cardiac tamponade/post pericardial tube drainage. Remains free of further chest discomfort. As mentioned, echocardiogram yesterday showed virtual resolution of pericardial fluid. 3. Heart failure (diastolic/acute on chronic): With his IV diuretic therapy, symptoms and signs of congestion have been improving. Blood pressure is somewhat softer today because of his diuresis. Chemistry confirms electrolyte balance with stable mild prerenal azotemia. We will continue on rate control measures for his atrial fibrillation and low dose spironolactone. He has not been on diuretic therapy prior to his admission. At this point, I believe he has reached his effective dry weight. Chest x-ray yesterday showed a significant improvement from the day before. 4. Tachybrady syndrome/dual chamber pacemaker in situ: His pacemaker continues to function appropriately, programmed AAI. As previously mentioned, with programmed DDD despite adjusting postventricular atrial refractory out to the max, he was still having pacemaker mediated tachycardia. His incision is healing well. 5. Hypertensive heart disease (benign with heart failure): Current blood pressure is somewhat soft following his diuresis and other medical therapy. We will continue to monitor this for the time being. 6. 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 As previously mentioned, has no audible murmur despite his echocardiographic findings. Hopefully we will be able to come up with a safe tolerated combination of antiarrhythmic/negative chronotropic therapy that he will be able to be discharged home tomorrow.
[2019-03-05 16:33] VITALS: BP 102/65
[2019-03-05 20:00] VITALS: BP 112/67
[2019-03-05] MEDS: SLF 3 ML SYR IV SCH (21:12)
[2019-03-06] VITALS: BP 104/63
[2019-03-06] MEDS: METOPROLOL TART 25 MG TABLET PO SCH ×3 (00:17→12:26)
[2019-03-06] MEDS: LEVALBUTEROL 1.25 MG/0.5 ML CONCENTRATE NEB NEB SCH ×2 (02:36→07:21)
[2019-03-06 04:00] VITALS: BP 133/64
[2019-03-06 05:50] LABS: ALBUMIN 2.7 GM/DL (3.2-5.2); CALCIUM LEVEL 8.6 MG/DL (8.8-10.2); CREATININE FOR GFR 1.38 MG/DL (0.70-1.30); GLOMERULAR FILTRATION RATE 52.6 (>35); PHOSPHORUS LEVEL 3.2 MG/DL (2.5-4.9); POTASSIUM SERUM 4.4 MEQ/L (3.5-5.1)
[2019-03-06] MEDS: SLF 3 ML SYR IV SCH (06:18)
[2019-03-06 08:00] VITALS: BP 120/68
[2019-03-06] MEDS: PANTOPRAZOLE 40MG TAB (PROTONIX) PO SCH (09:07)
[2019-03-06] MEDS: FLECAINIDE 50MG TABLET PO SCH (09:07)
[2019-03-06] MEDS: COLCHICINE 0.6 MG TAB PO SCH (09:07)
[2019-03-06] MEDS: SPIRONOLACTONE 12.5MG PER 1/2 TABLET PO SCH (09:07)
--- NOTE | 2019-03-06 10:36 | IPN ---
DATE: 03/06/2019 Mr. Almazan is still in the hospital secondary uncontrolled ventricular response to atrial fibrillation being managed by Dr. Pedro. He was started on metoprolol yesterday and his rate looks to be more controlled somewhere running between 81-100. His pain is well controlled at the incision site. His echocardiogram did not show any recurrence of his pericardial effusion. His vital signs show a maximum temperature (t-max) of 99.3 with a heart rate that ranges and above, the respiratory rate 18 to 20 without the use of accessory muscles, who is 94% saturated on room air. His blood pressure is ranging between 104/63 to 130/60. His intake and output over the past 24 hours has been recorded as 940 in and 2350 out for a negativity of 1410 mL. He weighs 69.5 kilos compared to 70.2 kilos yeterday. PHYSICAL EXAMINATION: His wound is clean and dry and intact. There is no pretibial edema and no calf tenderness. There is no chest x-ray on him today. His electrolytes show a sodium of 140 with a potassium of 4.4 and a total CO2 of 33 which is marginally high. BUN and creatinine is 23 and 1.38 up from 22 and 1.16 yesterday, probably in response to diuresis by Dr. Pedro. His calcium is 8.6 with a phosphorus of 3.2. Albumin is 2.7. IMPRESSION: 1. Hemorrhagic pericardial effusion probably secondary to prior trauma ie: chest compressions along with anticoagulation. 2. Bradycardic arhythmias with atrial fibrillation, previously on Xarelto. 3. Hypertension. 4. Spinal stenosis. 5. Sleep apnea. 6. Essential tremor. PLAN AND DISCUSSION: I will sign off of Mr. Almazan's case today while he is in the hospital. He will return to see me in 1 week after discharge. He is doing well from a surgical point of view and gratified his pericardial effusion is not detectable on echocardiography. We should think of resuming his Xarelto in approximately 1 week after I see him in the office. His final discharge will be with Dr. Pedro when the rate is controlled.
[2019-03-06] MEDS ORDERED: FLEC25TA PO (11:51)
[2019-03-06] MEDS ORDERED: METO1TAB87 PO (11:51)
[2019-03-06] MEDS ORDERED: DIGO0.127 PO (11:51)
[2019-03-06] MEDS ORDERED: ALDA25TA2 PO (11:51)
[2019-03-06 12:00] VITALS: BP 111/73
[2019-03-06 12:26] VITALS: BP 111/73
--- NOTE | 2019-03-06 13:30 | ECGEPIP ---
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
--- NOTE | 2019-03-06 17:01 | DSES ---
DATE OF ADMISSION: 02/27/2019 DATE OF DISCHARGE: 03/06/2019 DISCHARGE SUMMARY ATTENDING PHYSICIAN: Dr. Edward Pedro CLINICAL SUMMARY: This 83-year-old retired resident of [place], [place] with history of hypertensive and valvular heart disease complicated by abnormal EKG and paroxysmal atrial fibrillation, is well-known to our cardiology practice. Last September, he was admitted with a bout of atrial fibrillation and rapid ventricular response and was given combination medical therapy converting back to sinus rhythm, but negative chronotropic/antiarrhythmic therapy had to be markedly reduced because of symptomatic bradycardia. Previously referred to electrophysiology, [facility] for ablation procedure. He elected to consider this further. Since his last office appointment , October 01, 2018, documenting junctional bradycardia at 47 bpm, a permanent pacemaker implant was advised but again the patient chose to consider this option further. On Xarelto, oral anticoagulant therapy alone, he has been experiencing daily episodes of nonsustained and sustained bouts of atrial fibrillation for up to at least 4 hours at a time. February 17, 2019, he presented to [facility] with a sustained about of rapid palpitations - atrial fibrillation with a ventricular response averaging 149-160 bpm. The patient was given a dose of intravenous metoprolol 5 mg and 25 mg by mouth with gradual slowing of his ventricular response to 120. An hour later he converted to a sinus mechanism with a 6-second asystolic pause followed by sinus bradycardia in the 50s. An hour and 50 minutes later he had a recurrent episode of prolonged cardiac asystole requiring external chest compression. A recurrent bout was experienced prior to my arrival in the emergency room. A transcutaneous noninvasive pacing system was in place but not well tolerated. A transvenous pacemaker was placed followed by a permanent dual-chamber pacemaker later the same day. With his being on a Xarelto, intraoperative course was complicated by oozing and he had a small hematoma at the site of his pacemaker pocket when he was discharged February 18, 2019. At followup appointment in February 20, 2019, he was complaining of some pleuritic chest pain so we elected not to resume his Xarelto. February 22, 2019, he again presented to the emergency room with recurrent chest pain and chest CT scan showed a small apical pleural effusion. He was transferred to [facility] and was monitored there for several days. Echocardiographic study showed no evidence of tamponade. The patient was discharged home on colchicine, carvedilol, and Xarelto. On February 27, 2019, he was seen in my office and his jesse were removed from his pacer site. Chest wall ecchymosis was resolving from his chest compressions. However, later the same day he developed recurrent palpitations and profound weakness. Upon his presentation, he was in an atrially paced rhythm at 70 bpm with blood pressure 122/79, complaining of pleuritic chest pain and shortness of breath with weakness. Had been experiencing bouts of pacemaker mediated tachycardia with blood pressure dropping to 80/50. Followup chest CT angiogram showed considerable increase in his pericardial effusion and a stat echocardiogram showed cardiac tamponade with significant increase in pericardial fluid. He was admitted to the intensive care unit and urgent consultation was placed with thoracic surgery for pericardial drainage procedure. Please see my admission history and physical for further details. INVESTIGATIONS AND COURSE IN HOSPITAL: Admission blood work showed a hemoglobin of 12, normal white blood cell count and platelet count. His PT/INR on Xarelto was 18.9 and 1.6. Arterial blood gas on supplemental oxygen in the emergency room showed a pH of 7.41, pCO2 of 29, pO2 of 132. Chemistry showed electrolyte balance with BUN 26 up from February 22, and creatinine 1.18. Random glucose 143, normal serum calcium, albumin 3.3, total bilirubin was increased at 3.5. Normal direct bilirubin and other liver function studies were normal. Troponin I level was negative. BNP level was normal. TSH was normal at 2.8. The patient was taken urgently to the operating room for pericardial window with pericardial tube placement and right pleural chest tube placement. 300 mL of old blood was evacuated and there was a discrete ecchymosis on the anterior free wall of the right heart but he could not feel any pacemaker lead coming through or at the surface of the ventricle. A pulsus paradoxus of 15 mmHg prior to surgery resolved and systemic blood pressure increase by 33 mmHg following relief of pericardial compression. The patient tolerated procedure well. After 2 days with chest x-ray showing slight blunting of the right costophrenic angle and drainage from this catheter considerably less, his chest tube suction was discontinued March 01 and his pericardial tube was removed March 02, pleural chest tube was removed March 03. A followup echocardiogram/Doppler study March 04, 2019 showed only a minuscule posterior collection of pericardial fluid dramatic improvement from February 27. It also showed mild concentric left ventricle hypertrophy with hyperkinetic wall motion, mildly dilated left atrium with impairment of LV diastolic function and elevated mean left atrial pressure, normal right heart chamber sizes, but moderate pulmonary hypertension, IVC size upper limits of normal with reduced respiratory collapse in keeping with elevated central venous pressure, aortic valvular sclerosis with mild - moderate insufficiency, normal aortic root size, mild mitral annular calcification with moderate insufficiency, normal tricuspid valve with moderate insufficiency and his pacing leads. In light of recurrent problems with paroxysmal atrial fibrillation and rapid ventricular response, as well as the signs of congestion, following relief of his pericardial effusion, the patient was kept in hospital on telemetry while antiarrhythmic medications were being adjusted and he was receiving IV diuretic therapy. At this point, he has been ambulating in the amato without any chest discomfort whatsoever. No shortness of breath. Chest examination shows improved air entry with no pericardial rub, well-healed left subclavian pacemaker incision and healing xyphoid incision and chest tube incisions. Heart rate was 81 beats per minute and somewhat irregular, currently in atrial fibrillation/flutter, blood pressure 120/68, O2 saturation 97% on room air, afebrile. Weight today 69.5 kg down from 82.8 kg immediately post resuscitation from his cardiac tamponade. Last chest x-ray March 04, 2019 showed stable cardiac silhouette in mediastinum with chest tubes out and only a minuscule residual right apical pneumothorax that has decreased from the previous day, small pleural effusions and bibasilar atelectasis but again improved from previous study. EKGs: March 04, 2019 this had showed consistent atrially paced rhythm at 70 beats per minute with spontaneous AV conduction and narrow QRS complexes. However, tracing March 05, 2019 showed recurrent atrial fibrillation with rapid ventricular response rate averaging 108 beats per minute with nonspecific ST/T-wave abnormalities. On telemetry, he has remained in atrial fibrillation/flutter; but on adjusted negative chronotropic therapy, his ventricular response is now controlled. FINAL DIAGNOSIS: 1. Post chest compression pericardial effusion/cardiac tamponade - now successfully treated with pericardotomy, pericardial fluid drainage and pericardial window. 2. Recurrent persistent paroxysmal atrial fibrillation with rapid ventricular response - now at least his rate is controlled on combination antiarrhythmic/anti-negative chronotropic therapies, including digoxin, flecainide and metoprolol. Ongoing tenacity of his atrial tachyarrhythmia believed to be related to ongoing pericardial inflammation. At this point, his Xarelto has not been resumed. He will be taking low-dose aspirin 81 mg daily for at least the next week. In the future, we intend to refer him for radiofrequency ablation of his atrial tachyarrhythmia. 3. Heart failure (diastolic/acute on chronic): Has had evidence of hypertensive heart disease with left ventricle hypertrophy and diastolic dysfunction related to his recurrent atrial fibrillation and rapid ventricular response and IV fluid resuscitation for his cardiac tamponade. He did have symptoms and signs of congestion which are now relieved. Chemistry today confirming electrolyte balance with potassium 4.2 and slight prerenal azotemia, BUN 39, creatinine 1.3. He will continue on a modest salt and fluid intake restriction, beta-lizzy to maintain a controlled or slow ventricular rate and allow ample left ventricular filling time to maintain a low mean left atrial pressure, and will continue him on spironolactone. 4. Tachybrady syndrome/dual-chamber pacemaker in situ: His pacemaker was temporarily programmed to AAI in light of his recurrent episodes of pacemaker mediated tachycardia that could not be eliminated by adjusting his post ventricular atrial refractory period. At this point with combination negative chronotropic therapy, I suspect we will not have a problem and his device has been reprogrammed to DDD mode. 5. Hypertensive heart disease (benign with heart failure): Current blood pressure is controlled with combination beta lizzy and spironolactone therapy alone. We will continue to monitor his renal function which had bumped slightly with his IV diuretic therapy. 6. 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 No symptoms or signs of endocarditis. DISCHARGE MEDICATIONS AND RECOMMENDATIONS: At this time, we have requested he perform activities as tolerated and keep us posted should he have any further chest discomfort or notice any erythema, swelling or discharge from his incisions. He will stay on a modest salt restricted diet. His medications will include colchicine 0.6 mg daily, Tylenol 650 mg every 4 hours as needed pain, digoxin 125 mcg daily, flecainide 100 mg twice a day, metoprolol 50 mg by mouth twice a day, spironolactone 25 mg daily, vitamin B complex folic acid one tablet daily and artificial tears one drop each eye four times a day as needed dry eye. My office will be contacting him for a followup appointment with EKG in approximately one week. We intend to obtain followup chemistry at that time.
== END 2019-03-06 14:02 | disposition home or self-care (01) | DRG 270 ==
LOC: EDBD 15:46 → M ED 18:08 → M ICU 18:10 → M PCU 03-03 20:35
PROVIDERS: ADMIT Thoracic Surgery (Cardiothoracic Vascular Surgery); ATTEND Internal Medicine Cardiovascular Disease
PROC: 0B9N00Z Drainage of Right Pleura with Drainage Device, Open Approach (ICD-10-PCS; 2019-02-27)
PROC: 0W9D00Z Drainage of Pericardial Cavity with Drainage Device, Open Approach (ICD-10-PCS; principal; 2019-02-27 18:42)
DX: I31.3 Pericardial effusion (noninflammatory) (principal); I50.33 Acute on chronic diastolic (congestive) heart failure; I31.4 Cardiac tamponade; G47.33 Obstructive sleep apnea (adult) (pediatric); I48.0 Paroxysmal atrial fibrillation; I11.0 Hypertensive heart disease with heart failure; I08.0 Rheumatic disorders of both mitral and aortic valves; G25.0 Essential tremor; E78.5 Hyperlipidemia, unspecified; Z85.828 Personal history of other malignant neoplasm of skin; Z88.8 Allergy status to other drugs, medicaments and biological substances; Z79.01 Long term (current) use of anticoagulants; Z79.899 Other long term (current) drug therapy; Z45.018 Encounter for adjustment and management of other part of cardiac pacemaker

== ENCOUNTER → 2019-03-14 | Outpatient (CLI) | payer MEDICARE, OTHER ==
[~2019-03-14] MED LIST changes: +ALDA25TA2 PO; +CARV12.5 PO; +COLC1TAB13 PO; +DIGO0.127 PO; +FLEC25TA PO; +METO1TAB87 PO
--- NOTE | 2019-03-14 13:13 | REP ---
CHEST X-RAY: TWO VIEWS. HISTORY: Pericardial effusion. COMPARISON STUDY: February 02, 2019 FINDINGS: Bipolar pacemaker remains in the right heart via the left side. There is slight blunting of the right lateral pleural angle today. A granulomatous calcification is again seen in the right upper lobe region. There is no visible pneumothorax today. No new infiltrate is seen. On lateral radiograph, there is slight blunting of both posterior pleural angles. Granulomatous lymph node calcifications seen in the mediastinum. IMPRESSION: Pacemaker. Old granulomatous changes. Slight pleural angle blunting bilaterally. Heart size is normal. Electronically Signed by Jamal Li MD 03/14/2019 08:08 P
== END ==
LOC: M SMT 10:26
PROVIDERS: ATTEND Thoracic Surgery (Cardiothoracic Vascular Surgery)
DX: I31.3 Pericardial effusion (noninflammatory) (principal); Z95.0 Presence of cardiac pacemaker

== ENCOUNTER → 2019-04-10 | Outpatient (REF) | payer MEDICARE, OTHER ==
[~2019-04-10] MED LIST changes: -ARTI99.0 OU; +ARTIDRO2 OU
[2019-04-10 13:51] LABS: ALBUMIN 3.8 GM/DL (3.2-5.2); CALCIUM LEVEL 9.4 MG/DL (8.8-10.2); CREATININE FOR GFR 1.32 MG/DL (0.70-1.30); GLOMERULAR FILTRATION RATE 55.4 (>35); PHOSPHORUS LEVEL 2.8 MG/DL (2.5-4.9); POTASSIUM SERUM 4.3 MEQ/L (3.5-5.1)
== END ==
LOC: M LAB REF 12:07
PROVIDERS: ATTEND Internal Medicine Cardiovascular Disease
DX: I11.9 Hypertensive heart disease without heart failure (principal)

== ENCOUNTER → 2019-07-04 | Outpatient (REF) | payer MEDICARE, OTHER | LOC: M SFHCADAM 14:39 | PROVIDERS: ATTEND Physician Assistant | DX: I48.0 Paroxysmal atrial fibrillation (principal) | CPT/HCPCS: 80162; G0463 ==

== ENCOUNTER → 2019-07-22 | Outpatient (REF) | payer MEDICARE, OTHER ==
[2019-07-22 18:25] LABS: HEMATOCRIT 41.1 % (42.0-52.0); HEMOGLOBIN 13.8 g/dl (13.5-17.5); MEAN CORPUSCULAR HEMOGLOBIN 32.9 pg (27.0-33.0); MEAN CORPUSCULAR HGB CONC 33.6 g/dl (32.0-36.5); MEAN CORPUSCULAR VOLUME 97.9 fl (80.0-96.0); PLATELET COUNT, AUTOMATED 169 10^3/uL (150-450); WHITE BLOOD COUNT 6.6 10^3/uL (4.0-10.0)
[2019-07-22 18:56] LABS: ALBUMIN 4.2 GM/DL (3.2-5.2); BILIRUBIN,TOTAL 2.2 MG/DL (0.2-1.0); CALCIUM LEVEL 9.4 MG/DL (8.8-10.2); CHOLESTEROL RISK RATIO 3.736 (<5); CREATININE FOR GFR 1.36 MG/DL (0.70-1.30); GLOMERULAR FILTRATION RATE 53.4 (>35); POTASSIUM SERUM 4.5 MEQ/L (3.5-5.1); TOTAL PROTEIN 7.1 GM/DL (6.4-8.2)
== END ==
LOC: M SFHCCAPE 09:33
PROVIDERS: ATTEND Family Medicine
DX: I48.0 Paroxysmal atrial fibrillation (principal); I11.9 Hypertensive heart disease without heart failure; E78.2 Mixed hyperlipidemia

== ENCOUNTER → 2019-11-13 | Outpatient (REF) | payer MEDICARE, OTHER ==
[~2019-11-13] MED LIST changes: -ARTIDRO2 OU; +POLYOPD OU
[2019-11-13 17:53] LABS: ALBUMIN 3.8 GM/DL (3.2-5.2); BILIRUBIN,TOTAL 1.9 MG/DL (0.2-1.0); CREATININE FOR GFR 1.33 MG/DL (0.70-1.30); GLOMERULAR FILTRATION RATE 54.8 (>35); POTASSIUM SERUM 4.3 MEQ/L (3.5-5.1); TOTAL PROTEIN 6.5 GM/DL (6.4-8.2)
[2019-11-13 17:57] LABS: HEMATOCRIT 42.1 % (42.0-52.0); HEMOGLOBIN 14.4 g/dl (13.5-17.5); MEAN CORPUSCULAR HEMOGLOBIN 33.7 pg (27.0-33.0); MEAN CORPUSCULAR HGB CONC 34.2 g/dl (32.0-36.5); MEAN CORPUSCULAR VOLUME 98.6 fl (80.0-96.0); PLATELET COUNT, AUTOMATED 158 10^3/uL (150-450); RED BLOOD COUNT 4.27 10^6/uL (4.30-6.10); WHITE BLOOD COUNT 5.9 10^3/uL (4.0-10.0)
== END ==
LOC: M SFHCCAPE 07:28
PROVIDERS: ATTEND Family Medicine
DX: N18.3 Chronic kidney disease, stage 3 (moderate) (principal); I48.0 Paroxysmal atrial fibrillation

== ENCOUNTER 2020-01-15 21:17 | Emergency (ER) | payer MEDICARE, OTHER ==
[~2020-01-15] VITALS: Ht 172.7 cm; Wt 79.1 kg
[2020-01-15] MEDS ORDERED: CARVedilol 12.5 MG TAB PO ONE (22:00)
[2020-01-15] MEDS ORDERED: lisinopriL 10 MG TAB PO ONE (22:00)
[2020-01-15] MEDS ORDERED: LISI10TA4 PO (22:01)
[2020-01-15 22:24] VITALS: BP 166/91
[2020-01-15] MEDS ORDERED: XARE15TA PO (22:42)
[2020-01-15 23:21] VITALS: BP 168/78
== END 2020-01-15 23:22 | disposition home or self-care (01) ==
LOC: M ED 21:17
DX: I10 Essential (primary) hypertension (principal); I48.91 Unspecified atrial fibrillation; I38 Endocarditis, valve unspecified; G47.33 Obstructive sleep apnea (adult) (pediatric); M48.00 Spinal stenosis, site unspecified; Z88.8 Allergy status to other drugs, medicaments and biological substances; Z79.899 Other long term (current) drug therapy; Z79.01 Long term (current) use of anticoagulants

== ENCOUNTER → 2020-02-20 | Outpatient (CLI) | payer MEDICARE, OTHER ==
[~2020-02-20] MED LIST changes: +XARE15TA PO
--- NOTE | 2020-02-21 07:59 | REP ---
DIGITAL BILATERAL DIAGNOSTIC MAMMOGRAPHY WITH 3D TOMOGRAPHY AND FOCUSED BILATERAL BREAST SONOGRAPHY: HISTORY: Right breast swelling and pain. No comparison imaging. FINDINGS: Routine views of each breast are augmented with 3D tomography. Mild fibroglandular elements are seen in the subareolar region bilaterally in a pattern which is symmetric. No mass, architectural distortion, or suspicious microcalcification is seen on either side. SONOGRAPHIC FINDINGS: Bilateral subareolar sonography demonstrates a mild pattern of hypoechoic fibroglandular tissue in the retroareolar regions bilaterally. No mass-like features are seen. No suspicious shadowing or architectural distortion seen. IMPRESSION: BIRADS 2: BI-RADS/ACR category 2 mammogram. Benign Findings. BI-RADS category 2 benign findings. Gynecomastia pattern, mild and symmetric. Clinical followup is advised. This mammogram was interpreted with the aid of an FDA-approved computer-aided detection system. The patient states he had a clinical breast exam in February 2020. The patient letter being requested is male patient letter M2.
== END ==
LOC: M WHC 13:12
PROVIDERS: ATTEND Physician Assistant
DX: N62 Hypertrophy of breast (principal)
CPT/HCPCS: 76642; 77066; G0279

== ENCOUNTER → 2020-02-23 | Outpatient (CLI) | payer MEDICARE, OTHER ==
[2020-02-23 10:38] LABS: BASO % 0.4 % (0.0-1.0); EOS # 0.2 10^3/uL (0.0-0.5); EOS % 3.8 % (0.0-3.0); HEMATOCRIT 40.4 % (42.0-52.0); HEMOGLOBIN 13.7 g/dl (13.5-17.5); LYMPH # 1.6 10^3/uL (1.5-5.0); LYMPH % 30.8 % (24.0-44.0); MEAN CORPUSCULAR HEMOGLOBIN 33.5 pg (27.0-33.0); MEAN CORPUSCULAR HGB CONC 33.9 g/dl (32.0-36.5); MEAN CORPUSCULAR VOLUME 98.8 fl (80.0-96.0); MONO # 0.7 10^3/uL (0.0-0.8); MONO % 14.4 % (0.0-5.0); NEUTROPHILS # 2.5 10^3/uL (1.5-8.5); NEUTROPHILS % 50.2 % (36.0-66.0); PLATELET COUNT, AUTOMATED 150 10^3/uL (150-450); RED BLOOD COUNT 4.09 10^6/uL (4.30-6.10); WHITE BLOOD COUNT 5.1 10^3/uL (4.0-10.0)
[2020-02-23 11:33] LABS: ALBUMIN 3.8 GM/DL (3.2-5.2); BILIRUBIN,TOTAL 1.8 MG/DL (0.2-1.0); CALCIUM LEVEL 9.1 MG/DL (8.8-10.2); CREATININE FOR GFR 1.35 MG/DL (0.70-1.30); GLOMERULAR FILTRATION RATE 53.9 (>35); POTASSIUM SERUM 4.2 MEQ/L (3.5-5.1); TOTAL PROTEIN 6.6 GM/DL (6.4-8.2)
== END ==
LOC: M LAB 09:59
PROVIDERS: ATTEND Internal Medicine Cardiovascular Disease
DX: I08.0 Rheumatic disorders of both mitral and aortic valves (principal); I50.32 Chronic diastolic (congestive) heart failure; I11.0 Hypertensive heart disease with heart failure; R94.31 Abnormal electrocardiogram [ECG] [EKG]

== ENCOUNTER → 2020-03-12 | Outpatient (REF) | payer MEDICARE, OTHER ==
[~2020-03-12] MED LIST changes: -AMIO200T PO; +AMIO200T3 PO
[2020-03-12 15:43] LABS: FOLLICLE STIMULATING HORMONE 8.2 mIU/mL (1.4-18.1); LUTEINIZING HORMONE 5.6 mIU/mL (3.1-34.6)
[2020-03-23 13:07] LABS: HCG SERUM TUMOR MARKER QUANT < 1 mIU/mL (0-3); TESTOSTERONE FREE (DIRECT) 8.2 pg/mL (6.6-18.1)
== END ==
LOC: M PLALAB 13:54
PROVIDERS: ATTEND Surgery
DX: N62 Hypertrophy of breast (principal)

== ENCOUNTER → 2020-05-11 | Outpatient (REF) | payer MEDICARE, OTHER ==
[2020-05-11 19:17] LABS: ALBUMIN 3.8 GM/DL (3.2-5.2); BILIRUBIN,TOTAL 1.8 MG/DL (0.2-1.0); CREATININE FOR GFR 1.31 MG/DL (0.70-1.30); GLOMERULAR FILTRATION RATE 55.6 (>35); POTASSIUM SERUM 4.3 MEQ/L (3.5-5.1); TOTAL PROTEIN 6.9 GM/DL (6.4-8.2)
== END ==
LOC: M LABDRAWC 18:42
PROVIDERS: ATTEND Internal Medicine Cardiovascular Disease
DX: I11.0 Hypertensive heart disease with heart failure (principal); R94.31 Abnormal electrocardiogram [ECG] [EKG]; I50.32 Chronic diastolic (congestive) heart failure

== ENCOUNTER → 2020-06-23 | Outpatient (REF) | payer MEDICARE, OTHER ==
[2020-06-23 12:31] LABS: HEMATOCRIT 46.2 % (42.0-52.0); HEMOGLOBIN 15.5 g/dl (13.5-17.5); MEAN CORPUSCULAR HEMOGLOBIN 31.7 pg (27.0-33.0); MEAN CORPUSCULAR HGB CONC 33.5 g/dl (32.0-36.5); MEAN CORPUSCULAR VOLUME 94.5 fl (80.0-96.0); PLATELET COUNT, AUTOMATED 143 10^3/uL (150-450); RED BLOOD COUNT 4.89 10^6/uL (4.30-6.10); WHITE BLOOD COUNT 5.4 10^3/uL (4.0-10.0)
[2020-06-23 13:08] LABS: ALBUMIN 3.9 GM/DL (3.2-5.2); BILIRUBIN,TOTAL 2.5 MG/DL (0.2-1.0); CALCIUM LEVEL 9.3 MG/DL (8.8-10.2); CHOLESTEROL RISK RATIO 3.113 (<5); CREATININE FOR GFR 1.36 MG/DL (0.70-1.30); FREE T4 0.95 NG/DL (0.76-1.46); GLOMERULAR FILTRATION RATE 53.3 (>35); POTASSIUM SERUM 4.5 MEQ/L (3.5-5.1); THYROID STIMULATING HORMONE 2.18 uIU/ML (0.358-3.740); TOTAL PROTEIN 6.7 GM/DL (6.4-8.2)
== END ==
LOC: M SFHCCLAY 07:07
PROVIDERS: ATTEND Family Medicine
DX: N18.30 Chronic kidney disease, stage 3 unspecified (principal); I11.9 Hypertensive heart disease without heart failure; E78.2 Mixed hyperlipidemia; G25.0 Essential tremor

== ENCOUNTER → 2020-12-22 | Outpatient (REF) | payer MEDICARE, OTHER ==
[~2020-12-22] MED LIST changes: +COLC0.6T47 PO; -COLC1TAB13 PO; -LISI-542 PO; +LISI-898 PO; +LISI10TA22 PO; -LISI10TA4 PO
[2020-12-22 17:59] LABS: BASO % 0.2 % (0.0-1.0); EOS # 0.1 10^3/uL (0.0-0.5); EOS % 2.1 % (0.0-3.0); HEMATOCRIT 45.4 % (42.0-52.0); HEMOGLOBIN 15.5 g/dl (13.5-17.5); LYMPH # 1.4 10^3/uL (1.5-5.0); LYMPH % 27.2 % (24.0-44.0); MEAN CORPUSCULAR HEMOGLOBIN 32.3 pg (27.0-33.0); MEAN CORPUSCULAR HGB CONC 34.1 g/dl (32.0-36.5); MEAN CORPUSCULAR VOLUME 94.6 fl (80.0-96.0); MONO # 0.6 10^3/uL (0.0-0.8); MONO % 11.8 % (2.0-8.0); NEUTROPHILS % 58.3 % (36.0-66.0); PLATELET COUNT, AUTOMATED 134 10^3/uL (150-450); WHITE BLOOD COUNT 5.2 10^3/uL (4.0-10.0)
[2020-12-22 18:17] LABS: BILIRUBIN,TOTAL 2.5 MG/DL (0.2-1.0); CREATININE FOR GFR 1.26 MG/DL (0.70-1.30); GLOMERULAR FILTRATION RATE 58.2 (>35); POTASSIUM SERUM 4.2 MEQ/L (3.5-5.1); TOTAL PROTEIN 6.7 GM/DL (6.4-8.2)
== END ==
LOC: M LABDRWCV 15:47
PROVIDERS: ATTEND Internal Medicine Cardiovascular Disease
DX: I50.32 Chronic diastolic (congestive) heart failure (principal); I48.0 Paroxysmal atrial fibrillation; I34.8 Other nonrheumatic mitral valve disorders

== ENCOUNTER → 2021-03-14 | Outpatient (CLI) | payer MEDICARE, OTHER ==
--- NOTE | 2021-03-14 11:26 | PFTRPT ---
Site: [facility], [address] [place] [address], [id number] ID: [id number] Name: MARTINEZ HUYNH Visit Date: 03/14/2021 Second ID: [id number] Referring Doctor: Jean Castellano M.D. Reviewing Doctor: Alfonso Roche MD Clip Loading Machine Feeder: Maren ENCISO RRT Age: 85 : 1935 Sex: Male Race: Height: 68.00 Inches Weight: 180.00 Lbs BSA: 1.95 Order IDs: [id number] Requested Test(s): <RESP-PFT.PFT B/A> Diagnosis: R06.00 test meet the ATS standards for acceptability and repeatability. Pt was given two puffs of albuterol for post bronchodilator. Review Status: Not Reviewed Pre-Bronch Post-Bronch Pred Actual %Pred Actual %Chng SPIROMETRY FVC (L) 3.53 3.59 101 3.54 -1 FEV1 (L) 2.46 2.69 109 2.74 1 FEV1/FVC (%) 71 75 105 77 3 FEF 25% (L/sec) 6.40 5.38 84 6.72 24 FEF 50% (L/sec) 3.57 3.12 87 3.08 -1 FEF 75% (L/sec) 0.79 0.69 87 0.72 4 FEF 25-75% (L/sec) 1.60 2.12 132 2.19 3 FEF Max (L/sec) 6.28 6.40 101 6.74 5 FIVC (L) 3.35 3.44 2 FIF 50% (L/sec) 4.10 4.11 100 4.78 16 FIF Max (L/sec) 4.13 4.82 16 MVV (L/min) 103 68 66 Expiratory Time (sec) 7.27 6.77 -6 Back Extrap Vol (L) 0.21 0.18 -12 Time To FEFmax (sec) 0.179 0.129 -28 LUNG VOLUMES SVC (L) 4.04 3.73 92 IC (L) 3.05 2.86 93 ERV (L) 0.99 0.87 87 TGV (L) 3.62 3.68 101 RV (Pleth) (L) 2.63 2.81 106 TLC (Pleth) (L) 6.67 6.53 97 RV/TLC (Pleth) (%) 40 43 107 DIFFUSION DLCOunc (ml/min/mmHg) 22.13 16.77 75 DL/VA (ml/min/mmHg/L) 3.32 2.98 89 VA (L) 6.67 5.63 84 BHT (sec) 10.30 IVC (L) 2.82 TLC (SB) (L) 5.78 AIRWAYS RESISTANCE Raw (cmH2O/L/s) 1.45 1.04 71 Gaw (L/s/cmH2O) 1.03 0.96 93 sRaw (cmH2O*s) 4.76 4.03 84 sGaw (1/cmH2O*s) 0.20 0.25 124
--- NOTE | 2021-03-14 13:59 | REP ---
INDICATION: DYSPNEA, UNSPECIFIED. COMPARISON: Multiple the latest 03/14/2019 TECHNIQUE: PA and lateral FINDINGS: The cardiomediastinal silhouette is unchanged. The heart is not enlarged. There is a dual chamber bipolar pacemaker device which is unchanged. No acute patchy parenchymal opacities or pleural effusions have developed. Stable right paratracheal calcifications and stable incidental right upper lobe calcified granuloma. There is no change in the osseous structures. IMPRESSION: Stable appearing chronic changes as described above. There is no evidence of acute cardiopulmonary disease. <Electronically signed by Isaiah Olmos > 03/14/21 [id number]
== END ==
LOC: M CARPUL 10:41
PROVIDERS: ATTEND Internal Medicine Cardiovascular Disease
DX: R06.00 Dyspnea, unspecified (principal)

== ENCOUNTER 2021-04-05 07:32 | Emergency (ER) | payer MEDICARE, OTHER ==
[~2021-04-05] VITALS: Ht 172.7 cm; Wt 81.8 kg
[~2021-04-05 07:32] MED LIST changes: -AMIO200T3 PO; +AMIO200T49 PO; -LISI-898 PO; +LISI5TAB11 PO
[2021-04-05] MEDS ORDERED: CARVedilol 12.5 MG TAB PO ONE (08:45)
[2021-04-05 09:10] LABS: BASO % 0.4 % (0.0-1.0); EOS # 0.1 10^3/uL (0.0-0.5); EOS % 1.3 % (0.0-3.0); HEMATOCRIT 48.4 % (42.0-52.0); HEMOGLOBIN 16.7 g/dl (13.5-17.5); LYMPH # 1.5 10^3/uL (1.5-5.0); LYMPH % 19.8 % (24.0-44.0); MEAN CORPUSCULAR HEMOGLOBIN 32.9 pg (27.0-33.0); MEAN CORPUSCULAR HGB CONC 34.5 g/dl (32.0-36.5); MEAN CORPUSCULAR VOLUME 95.3 fl (80.0-96.0); MONO # 0.9 10^3/uL (0.0-0.8); MONO % 12.4 % (2.0-8.0); NEUTROPHILS % 65.4 % (36.0-66.0); PLATELET COUNT, AUTOMATED 142 10^3/uL (150-450); RED BLOOD COUNT 5.08 10^6/uL (4.30-6.10); WHITE BLOOD COUNT 7.6 10^3/uL (4.0-10.0)
[2021-04-05] MEDS ORDERED: CARV12.5 PO (09:19)
[2021-04-05] MEDS ORDERED: EPLE25TA PO (09:19)
[2021-04-05 09:40] LABS: ALBUMIN 3.8 GM/DL (3.2-5.2); ALT/SGPT 43 U/L (12-78); BILIRUBIN,DIRECT 0.3 MG/DL (0.0-0.2); BILIRUBIN,TOTAL 3.3 MG/DL (0.2-1.0); BLOOD UREA NITROGEN 17 MG/DL (7-18); CALCIUM LEVEL 9.5 MG/DL (8.8-10.2); CARBON DIOXIDE LEVEL 30 MEQ/L (21-32); CHLORIDE LEVEL 104 MEQ/L (98-107); CREATININE FOR GFR 1.19 MG/DL (0.70-1.30); GLOMERULAR FILTRATION RATE > 60.0 (>35); GLUCOSE, FASTING 99 MG/DL (70-100); LIPASE 121 U/L (73-393); MAGNESIUM LEVEL 2.1 MG/DL (1.8-2.4); POTASSIUM SERUM 4.1 MEQ/L (3.5-5.1); SODIUM LEVEL 140 MEQ/L (136-145); TOTAL PROTEIN 7.6 GM/DL (6.4-8.2)
[2021-04-05] MEDS ORDERED: LABETALOL 100MG/20ML VIAL IV STA (10:04)
[2021-04-05] MEDS ORDERED: CORE25TA PO (11:20)
[2021-04-05 11:30] VITALS: BP 136/83
== END 2021-04-05 11:45 | disposition home or self-care (01) ==
LOC: M ED 07:32
DX: I10 Essential (primary) hypertension (principal); I48.91 Unspecified atrial fibrillation; E78.5 Hyperlipidemia, unspecified; Z88.8 Allergy status to other drugs, medicaments and biological substances

== ENCOUNTER → 2021-07-14 | Outpatient (REF) | payer MEDICARE, OTHER ==
[~2021-07-14] MED LIST changes: +AMIO200T3 PO; -AMIO200T49 PO; +CORE25TA PO; +EPLE25TA PO; +LISI-898 PO; -LISI5TAB11 PO
[2021-07-14 16:51] LABS: HEMATOCRIT 47.5 % (42.0-52.0); HEMOGLOBIN 16.1 g/dl (13.5-17.5); MEAN CORPUSCULAR HEMOGLOBIN 32.7 pg (27.0-33.0); MEAN CORPUSCULAR HGB CONC 33.9 g/dl (32.0-36.5); MEAN CORPUSCULAR VOLUME 96.3 fl (80.0-96.0); PLATELET COUNT, AUTOMATED 143 10^3/uL (150-450); RED BLOOD COUNT 4.93 10^6/uL (4.30-6.10); WHITE BLOOD COUNT 5.5 10^3/uL (4.0-10.0)
[2021-07-14 16:55] LABS: ALBUMIN 4.2 GM/DL (3.2-5.2); BILIRUBIN,TOTAL 3.2 MG/DL (0.2-1.0); CALCIUM LEVEL 9.9 MG/DL (8.8-10.2); CHOLESTEROL RISK RATIO 3.116 (<5); CREATININE FOR GFR 1.39 MG/DL (0.70-1.30); GLOMERULAR FILTRATION RATE 51.8 (>35); POTASSIUM SERUM 4.1 MEQ/L (3.5-5.1); TOTAL PROTEIN 6.9 GM/DL (6.4-8.2)
== END ==
LOC: M SFHCCAPE 07:43
PROVIDERS: ATTEND Family Medicine
DX: N18.30 Chronic kidney disease, stage 3 unspecified (principal); E78.2 Mixed hyperlipidemia

== ENCOUNTER → 2021-08-17 | Outpatient (REF) | payer MEDICARE, OTHER ==
[2021-08-17 17:15] LABS: CALCIUM LEVEL 9.2 MG/DL (8.8-10.2); CREATININE FOR GFR 1.31 MG/DL (0.70-1.30); GLOMERULAR FILTRATION RATE 55.5 (>35)
== END ==
LOC: M LABDRWCV 15:40
PROVIDERS: ATTEND Internal Medicine Cardiovascular Disease
DX: I48.0 Paroxysmal atrial fibrillation (principal)

== ENCOUNTER → 2021-10-12 | Outpatient (CLI) | payer MEDICARE, OTHER ==
[~2021-10-12] MED LIST changes: -AMIO200T3 PO; +AMIO200T49 PO; -LISI-898 PO; +LISI5TAB11 PO
== END ==
LOC: M EKG 10:06
PROVIDERS: ATTEND Internal Medicine Cardiovascular Disease
DX: I48.0 Paroxysmal atrial fibrillation (principal)

== ENCOUNTER → 2021-12-20 | Outpatient (CLI) | payer MEDICARE, OTHER | LOC: M EKG 12:19 | PROVIDERS: ATTEND Internal Medicine Cardiovascular Disease | DX: I48.91 Unspecified atrial fibrillation (principal) ==

== ENCOUNTER → 2022-01-11 | Outpatient (REF) | payer MEDICARE, OTHER ==
[2022-01-11 16:49] LABS: CALCIUM LEVEL 9.6 MG/DL (8.8-10.2); CREATININE FOR GFR 1.38 MG/DL (0.70-1.30); GLOMERULAR FILTRATION RATE 52.3 (>35); POTASSIUM SERUM 4.5 MEQ/L (3.5-5.1)
== END ==
LOC: M SFHCADAM 08:43
PROVIDERS: ATTEND Family Medicine
DX: I11.9 Hypertensive heart disease without heart failure (principal)

== ENCOUNTER → 2022-05-10 | Outpatient (REF) | payer MEDICARE, OTHER ==
[2022-05-10 17:49] LABS: BASO % 0.4 % (0.0-1.0); EOS # 0.1 10^3/uL (0.0-0.5); EOS % 2.8 % (0.0-3.0); HEMATOCRIT 45.1 % (42.0-52.0); HEMOGLOBIN 15.3 g/dl (13.5-17.5); LYMPH # 1.4 10^3/uL (1.5-5.0); MEAN CORPUSCULAR HEMOGLOBIN 32.8 pg (27.0-33.0); MEAN CORPUSCULAR HGB CONC 33.9 g/dl (32.0-36.5); MEAN CORPUSCULAR VOLUME 96.6 fl (80.0-96.0); MONO # 0.6 10^3/uL (0.0-0.8); MONO % 12.7 % (2.0-8.0); NEUTROPHILS # 2.5 10^3/uL (1.5-8.5); NEUTROPHILS % 53.5 % (36.0-66.0); PLATELET COUNT, AUTOMATED 134 10^3/uL (150-450); RED BLOOD COUNT 4.67 10^6/uL (4.30-6.10); WHITE BLOOD COUNT 4.6 10^3/uL (4.0-10.0)
[2022-05-10 18:29] LABS: CALCIUM LEVEL 9.6 MG/DL (8.8-10.2); CREATININE FOR GFR 1.29 MG/DL (0.70-1.30); GLOMERULAR FILTRATION RATE 56.4 (>35); POTASSIUM SERUM 4.2 MEQ/L (3.5-5.1)
== END ==
LOC: M LABDRWCV 17:01
PROVIDERS: ATTEND Internal Medicine Cardiovascular Disease
DX: I49.5 Sick sinus syndrome (principal)

== ENCOUNTER 2022-05-23 20:54 | Inpatient (IN) | payer MEDICARE, OTHER ==
[~2022-05-23] VITALS: Ht 170.2 cm; Wt 83.7 kg
[2022-05-23 22:06] LABS: ALBUMIN 3.9 GM/DL (3.2-5.2); BILIRUBIN,DIRECT 0.4 MG/DL (0.0-0.2); BILIRUBIN,TOTAL 3.5 MG/DL (0.2-1.0); CALCIUM LEVEL 8.9 MG/DL (8.8-10.2); CREATININE FOR GFR 1.41 MG/DL (0.70-1.30); GLOMERULAR FILTRATION RATE 50.9 (>35); POTASSIUM SERUM 4.2 MEQ/L (3.5-5.1); TOTAL PROTEIN 6.7 GM/DL (6.4-8.2)
[2022-05-23 22:09] LABS: BASO % 0.1 % (0.0-1.0); EOS # 0.1 10^3/uL (0.0-0.5); EOS % 1.7 % (0.0-3.0); HEMATOCRIT 42.3 % (42.0-52.0); HEMOGLOBIN 14.6 g/dl (13.5-17.5); LYMPH # 1.4 10^3/uL (1.5-5.0); LYMPH % 18.9 % (24.0-44.0); MEAN CORPUSCULAR HEMOGLOBIN 32.8 pg (27.0-33.0); MEAN CORPUSCULAR HGB CONC 34.5 g/dl (32.0-36.5); MEAN CORPUSCULAR VOLUME 95.1 fl (80.0-96.0); MONO # 0.8 10^3/uL (0.0-0.8); MONO % 11.1 % (2.0-8.0); NEUTROPHILS # 4.9 10^3/uL (1.5-8.5); NEUTROPHILS % 67.6 % (36.0-66.0); PLATELET COUNT, AUTOMATED 145 10^3/uL (150-450); RED BLOOD COUNT 4.45 10^6/uL (4.30-6.10); WHITE BLOOD COUNT 7.2 10^3/uL (4.0-10.0)
[2022-05-23] MEDS ORDERED: ISOVUE-370 76% 100ML VIAL As Ordered ONE (23:05)
[2022-05-24] MEDS ORDERED: FUROSEMIDE 40MG/4ML VIAL (J1940) IV ONE
[2022-05-24] MEDS ORDERED: CARV25TA PO (00:48)
[2022-05-24] MEDS ORDERED: FLEC1TAB PO (00:48)
[2022-05-24] MEDS ORDERED: HOME MED LIST COMPLETE! XX SCH (00:50)
[2022-05-24] MEDS ORDERED: POLYVINYL ALCOHOL OPHTH SOLN 15 ML(LIQUITEARS) OU PRN (01:30)
[2022-05-24] MEDS ORDERED: ACETAMINOPHEN TAB 650MG DOSE (2X325MG) PO PRN (01:30)
[2022-05-24 02:12] LABS: INR 2.84; PROTHROMBIN TIME 30.2 SECONDS (12.7-14.5)
[2022-05-24 02:13] LABS: PARTIAL THROMBOPLASTIN TIME 54.9 SECONDS (25.9-37.0)
[2022-05-24 03:17] VITALS: BP 144/74
[2022-05-24] MEDS ORDERED: DOXYCYCLINE HYCLATE 100MG TABLET PO SCH (05:00)
[2022-05-24 06:00] VITALS: BP 137/73
[2022-05-24 06:07] LABS: HEMOGLOBIN 14.8 g/dl (13.5-17.5); MEAN CORPUSCULAR HEMOGLOBIN 32.6 pg (27.0-33.0); MEAN CORPUSCULAR HGB CONC 34.4 g/dl (32.0-36.5); MEAN CORPUSCULAR VOLUME 94.7 fl (80.0-96.0); PLATELET COUNT, AUTOMATED 126 10^3/uL (150-450); RED BLOOD COUNT 4.54 10^6/uL (4.30-6.10); WHITE BLOOD COUNT 6.6 10^3/uL (4.0-10.0)
[2022-05-24 06:47] LABS: BILIRUBIN,TOTAL 3.9 MG/DL (0.2-1.0); CALCIUM LEVEL 9.3 MG/DL (8.8-10.2); CREATININE FOR GFR 1.33 MG/DL (0.70-1.30); GLOMERULAR FILTRATION RATE 54.4 (>35); MAGNESIUM LEVEL 2.1 MG/DL (1.8-2.4); POTASSIUM SERUM 3.6 MEQ/L (3.5-5.1); TOTAL PROTEIN 6.6 GM/DL (6.4-8.2)
[2022-05-24 08:40] VITALS: BP 138/72
[2022-05-24] MEDS ORDERED: CARVedilol 12.5 MG TAB PO SCH (09:00)
[2022-05-24] MEDS ORDERED: FUROSEMIDE 20MG/2ML VIAL (J1940) IV SCH ×2 (09:00)
[2022-05-24] MEDS ORDERED: FLECAINIDE 50MG TABLET PO SCH (09:00)
[2022-05-24] MEDS ORDERED: LASI40TA9 PO (12:02)
[2022-05-24] MEDS ORDERED: RIVAROXABAN 15MG TAB (XARELTO) PO SCH (18:00)
[2022-05-24] MEDS ORDERED: ATORVASTATIN 20 MG TAB PO SCH (21:00)
== END 2022-05-24 14:28 | disposition home or self-care (01) | DRG 291 ==
LOC: M ED 20:54 → EEVIPCON 05-24 00:43 → M ED INP 05-24 00:43 → ENRESERV 05-24 01:33 → M MSPAV 05-24 03:11
PROVIDERS: ADMIT Internal Medicine; ATTEND Internal Medicine Nephrology
PROC: B246ZZZ Ultrasonography of Right and Left Heart (ICD-10-PCS; principal; 2022-05-24)
DX: I13.0 Hypertensive heart and chronic kidney disease with heart failure and stage 1 through stage 4 chronic kidney disease, or unspecified chronic kidney disease (principal); I50.33 Acute on chronic diastolic (congestive) heart failure; J91.8 Pleural effusion in other conditions classified elsewhere; N18.30 Chronic kidney disease, stage 3 unspecified; E78.5 Hyperlipidemia, unspecified; G47.33 Obstructive sleep apnea (adult) (pediatric); I48.0 Paroxysmal atrial fibrillation; E80.4 Gilbert syndrome; K82.8 Other specified diseases of gallbladder; I49.5 Sick sinus syndrome; D69.6 Thrombocytopenia, unspecified; N40.0 Benign prostatic hyperplasia without lower urinary tract symptoms; M48.061 Spinal stenosis, lumbar region without neurogenic claudication; G62.9 Polyneuropathy, unspecified; Z95.0 Presence of cardiac pacemaker; Z20.822 Contact with and (suspected) exposure to COVID-19; Z79.899 Other long term (current) drug therapy; Z87.891 Personal history of nicotine dependence; Z88.8 Allergy status to other drugs, medicaments and biological substances

== ENCOUNTER → 2022-06-07 | Outpatient (REF) | payer MEDICARE, OTHER ==
[~2022-06-07] MED LIST changes: +CARV25TA PO; +FLEC1TAB PO; +LASI40TA9 PO
[2022-06-07 20:20] LABS: CALCIUM LEVEL 9.8 MG/DL (8.8-10.2); CREATININE FOR GFR 1.51 MG/DL (0.70-1.30); POTASSIUM SERUM 4.3 MEQ/L (3.5-5.1)
== END ==
LOC: M LABDRWCV 17:11
PROVIDERS: ATTEND Nurse Practitioner Adult Health
DX: I11.0 Hypertensive heart disease with heart failure (principal); G47.33 Obstructive sleep apnea (adult) (pediatric); R06.02 Shortness of breath; I50.32 Chronic diastolic (congestive) heart failure

== ENCOUNTER → 2022-07-12 | Outpatient (REF) | payer MEDICARE, OTHER ==
[2022-07-12 18:10] LABS: HEMATOCRIT 44.8 % (42.0-52.0); HEMOGLOBIN 14.7 g/dl (13.5-17.5); MEAN CORPUSCULAR HGB CONC 32.8 g/dl (32.0-36.5); MEAN CORPUSCULAR VOLUME 97.6 fl (80.0-96.0); PLATELET COUNT, AUTOMATED 139 10^3/uL (150-450); RED BLOOD COUNT 4.59 10^6/uL (4.30-6.10); WHITE BLOOD COUNT 5.3 10^3/uL (4.0-10.0)
[2022-07-12 18:31] LABS: ALBUMIN 3.9 GM/DL (3.2-5.2); BILIRUBIN,TOTAL 2.8 MG/DL (0.2-1.0); CALCIUM LEVEL 9.6 MG/DL (8.8-10.2); CHOLESTEROL RISK RATIO 2.906 (<5); CREATININE FOR GFR 1.33 MG/DL (0.70-1.30); FREE T4 0.95 NG/DL (0.76-1.46); GLOMERULAR FILTRATION RATE 54.4 (>35); POTASSIUM SERUM 3.9 MEQ/L (3.5-5.1); THYROID STIMULATING HORMONE 1.93 uIU/ML (0.358-3.740); TOTAL PROTEIN 6.8 GM/DL (6.4-8.2)
== END ==
LOC: M SFHCCAPE 08:53
PROVIDERS: ATTEND Family Medicine
DX: I48.0 Paroxysmal atrial fibrillation (principal); G25.0 Essential tremor; I11.9 Hypertensive heart disease without heart failure; N18.30 Chronic kidney disease, stage 3 unspecified; E78.2 Mixed hyperlipidemia

== ENCOUNTER → 2022-11-02 | Outpatient (REF) | payer MEDICARE, OTHER ==
[~2022-11-02] MED LIST changes: -POTA10CA32 PO; +POTA10CA33 PO
[2022-11-02 18:02] LABS: BASO % 0.4 % (0.0-1.0); EOS # 0.1 10^3/uL (0.0-0.5); EOS % 2.6 % (0.0-3.0); HEMATOCRIT 43.2 % (42.0-52.0); HEMOGLOBIN 14.5 g/dl (13.5-17.5); LYMPH # 1.4 10^3/uL (1.5-5.0); LYMPH % 29.6 % (24.0-44.0); MEAN CORPUSCULAR HEMOGLOBIN 32.3 pg (27.0-33.0); MEAN CORPUSCULAR HGB CONC 33.6 g/dl (32.0-36.5); MEAN CORPUSCULAR VOLUME 96.2 fl (80.0-96.0); MONO # 0.6 10^3/uL (0.0-0.8); MONO % 11.8 % (2.0-8.0); NEUTROPHILS # 2.6 10^3/uL (1.5-8.5); NEUTROPHILS % 55.2 % (36.0-66.0); PLATELET COUNT, AUTOMATED 133 10^3/uL (150-450); RED BLOOD COUNT 4.49 10^6/uL (4.30-6.10); WHITE BLOOD COUNT 4.7 10^3/uL (4.0-10.0)
[2022-11-02 18:34] LABS: CHOLESTEROL RISK RATIO 3.27 (<5); CREATININE FOR GFR 1.34 MG/DL (0.70-1.30); GLOMERULAR FILTRATION RATE 53.9 (>35); HDL CHOLESTEROL 38.2 MG/DL (>40); LDL CHOLESTEROL 63.4 MG/DL (<100); POTASSIUM SERUM 4.1 MMOL/L (3.5-5.1)
== END ==
LOC: M LABDRAWC 17:23
PROVIDERS: ATTEND Nurse Practitioner Adult Health
DX: I48.0 Paroxysmal atrial fibrillation (principal); I50.32 Chronic diastolic (congestive) heart failure; I11.0 Hypertensive heart disease with heart failure; E78.00 Pure hypercholesterolemia, unspecified

== ENCOUNTER → 2023-01-16 | Outpatient (REF) | payer MEDICARE, OTHER ==
[~2023-01-16] MED LIST changes: +ARTIDRO4 OU; -POLYOPD OU
[2023-01-16 17:31] LABS: HEMATOCRIT 43.7 % (42.0-52.0); HEMOGLOBIN 14.8 g/dl (13.5-17.5); MEAN CORPUSCULAR HEMOGLOBIN 32.4 pg (27.0-33.0); MEAN CORPUSCULAR HGB CONC 33.9 g/dl (32.0-36.5); MEAN CORPUSCULAR VOLUME 95.6 fl (80.0-96.0); PLATELET COUNT, AUTOMATED 146 10^3/uL (150-450); RED BLOOD COUNT 4.57 10^6/uL (4.30-6.10); WHITE BLOOD COUNT 7.5 10^3/uL (4.0-10.0)
[2023-01-16 17:59] LABS: ALBUMIN 4.2 G/DL (3.2-5.2); BILIRUBIN,TOTAL 2.8 MG/DL (0.3-1.2); CALCIUM LEVEL 9.6 MG/DL (8.3-10.6); CHOLESTEROL RISK RATIO 3.73 (<5); CREATININE FOR GFR 1.39 MG/DL (0.70-1.30); GLOMERULAR FILTRATION RATE 51.7 (>35); HDL CHOLESTEROL 40.4 MG/DL (>40); LDL CHOLESTEROL 70.2 MG/DL (<100); NON-HDL-C 110.6 MG/DL; POTASSIUM SERUM 4.1 MMOL/L (3.5-5.1); TOTAL PROTEIN 6.6 G/DL (5.7-8.2)
== END ==
LOC: M SFHCCAPE 07:45
PROVIDERS: ATTEND Family Medicine
DX: I48.0 Paroxysmal atrial fibrillation (principal); I11.9 Hypertensive heart disease without heart failure; E78.2 Mixed hyperlipidemia

== ENCOUNTER → 2023-04-09 | Outpatient (REF) | payer MEDICARE, OTHER ==
[~2023-04-09] MED LIST changes: -K-TA10TA2 PO; +POTA-165 PO; -POTA10CA33 PO; +POTA10CA60 PO
[2023-04-09 16:48] LABS: BASO % 0.2 % (0.0-1.0); EOS # 0.1 10^3/uL (0.0-0.5); EOS % 2.6 % (0.0-3.0); HEMATOCRIT 40.3 % (42.0-52.0); HEMOGLOBIN 13.3 g/dl (13.5-17.5); LYMPH # 1.2 10^3/uL (1.5-5.0); LYMPH % 22.4 % (24.0-44.0); MEAN CORPUSCULAR HEMOGLOBIN 31.9 pg (27.0-33.0); MEAN CORPUSCULAR VOLUME 96.6 fl (80.0-96.0); MONO # 0.8 10^3/uL (0.0-0.8); MONO % 14.3 % (2.0-8.0); NEUTROPHILS # 3.3 10^3/uL (1.5-8.5); NEUTROPHILS % 60.1 % (36.0-66.0); PLATELET COUNT, AUTOMATED 181 10^3/uL (150-450); RED BLOOD COUNT 4.17 10^6/uL (4.30-6.10); WHITE BLOOD COUNT 5.4 10^3/uL (4.0-10.0)
[2023-04-09 17:10] LABS: URIC ACID 8.3 MG/DL (3.7-9.2)
[2023-04-09 17:13] LABS: ALBUMIN 3.4 G/DL (3.2-5.2); ALKALINE PHOSPHATASE 93 U/L (46-116); ALT/SGPT 33 U/L (7.0-40); AST/SGOT 23 U/L (<34); BILIRUBIN,TOTAL 1.8 MG/DL (0.3-1.2); BLOOD UREA NITROGEN 23 MG/DL (9-23); CARBON DIOXIDE LEVEL 32 MMOL/L (20-31); CHLORIDE LEVEL 104 MMOL/L (98-107); GLOMERULAR FILTRATION RATE > 60.0 (>35); GLUCOSE, FASTING 85 MG/DL (74-106); POTASSIUM SERUM 3.9 MMOL/L (3.5-5.1); SODIUM LEVEL 140 MMOL/L (136-145); TOTAL PROTEIN 6.4 G/DL (5.7-8.2)
== END ==
LOC: M SFHCCAPE 10:58
PROVIDERS: ATTEND Physician Assistant
DX: M25.571 Pain in right ankle and joints of right foot (principal)

== ENCOUNTER → 2023-07-18 | Outpatient (REF) | payer MEDICARE, OTHER ==
[2023-07-18 18:48] LABS: HEMATOCRIT 42.9 % (42.0-52.0); HEMOGLOBIN 14.4 g/dl (13.5-17.5); MEAN CORPUSCULAR HEMOGLOBIN 32.4 pg (27.0-33.0); MEAN CORPUSCULAR HGB CONC 33.6 g/dl (32.0-36.5); MEAN CORPUSCULAR VOLUME 96.6 fl (80.0-96.0); PLATELET COUNT, AUTOMATED 137 10^3/uL (150-450); RED BLOOD COUNT 4.44 10^6/uL (4.30-6.10)
[2023-07-18 19:02] LABS: CREATININE, URINE 48.8 MG/DL
[2023-07-18 19:03] LABS: THYROID STIMULATING HORMONE 2.552 uIU/ML (0.55-4.78)
[2023-07-18 19:04] LABS: MAU/CREAT RATIO 8.1 MCG/MG (0.0-30.0)
[2023-07-18 19:05] LABS: FREE T4 1.04 NG/DL (0.89-1.76)
[2023-07-18 19:07] LABS: ALBUMIN 3.7 G/DL (3.2-5.2); BILIRUBIN,TOTAL 2.2 MG/DL (0.3-1.2); CALCIUM LEVEL 8.9 MG/DL (8.3-10.6); CHOLESTEROL RISK RATIO 3.43 (<5); CREATININE FOR GFR 1.27 MG/DL (0.70-1.30); GLOMERULAR FILTRATION RATE 57.2 (>35); HDL CHOLESTEROL 40.5 MG/DL (>40); LDL CHOLESTEROL 74.3 MG/DL (<100); NON-HDL-C 98.5 MG/DL; POTASSIUM SERUM 4.1 MMOL/L (3.5-5.1); TOTAL PROTEIN 6.2 G/DL (5.7-8.2)
== END ==
LOC: M SFHCCAPE 08:42
PROVIDERS: ATTEND Family Medicine
DX: N18.31 Chronic kidney disease, stage 3a (principal); I11.9 Hypertensive heart disease without heart failure; E78.2 Mixed hyperlipidemia; G25.0 Essential tremor

== ENCOUNTER → 2024-01-16 | Outpatient (REF) | payer MEDICARE, OTHER ==
[~2024-01-16] MED LIST changes: -EPLE25TA PO; +EPLE25TA2 PO; -POTA10CA60 PO; +POTA10CA70 PO
[2024-01-16 18:46] LABS: ALBUMIN 3.9 G/DL (3.2-5.2); BILIRUBIN,TOTAL 3.2 MG/DL (0.3-1.2); CALCIUM LEVEL 9.2 MG/DL (8.3-10.6); CHOLESTEROL RISK RATIO 3.63 (<5); CREATININE FOR GFR 1.34 MG/DL (0.70-1.30); GLOMERULAR FILTRATION RATE 53.8 (>35); HDL CHOLESTEROL 40.4 MG/DL (>40); LDL CHOLESTEROL 73.2 MG/DL (<100); NON-HDL-C 106.6 MG/DL; POTASSIUM SERUM 4.2 MMOL/L (3.5-5.1); TOTAL PROTEIN 6.4 G/DL (5.7-8.2)
== END ==
LOC: M SFHCCAPE 07:46
PROVIDERS: ATTEND Family Medicine
DX: I11.9 Hypertensive heart disease without heart failure (principal); E80.4 Gilbert syndrome; E78.2 Mixed hyperlipidemia

== ENCOUNTER → 2024-07-22 | Outpatient (REF) | payer MEDICARE, OTHER ==
[~2024-07-22] MED LIST changes: +EPLE25TA15 PO; -EPLE25TA2 PO
[2024-07-22 18:06] LABS: HEMATOCRIT 46.3 % (42.0-52.0); HEMOGLOBIN 15.9 g/dl (13.5-17.5); MEAN CORPUSCULAR HEMOGLOBIN 32.9 pg (27.0-33.0); MEAN CORPUSCULAR HGB CONC 34.3 g/dl (32.0-36.5); MEAN CORPUSCULAR VOLUME 95.7 fl (80.0-96.0); PLATELET COUNT, AUTOMATED 130 10^3/uL (150-450); RED BLOOD COUNT 4.84 10^6/uL (4.30-6.10); WHITE BLOOD COUNT 5.4 10^3/uL (4.0-10.0)
[2024-07-22 18:11] LABS: THYROID STIMULATING HORMONE 2.667 uIU/ML (0.55-4.78)
[2024-07-22 18:12] LABS: FREE T4 1.23 NG/DL (0.89-1.76)
[2024-07-22 18:16] LABS: BILIRUBIN,TOTAL 3.3 MG/DL (0.3-1.2); CALCIUM LEVEL 9.7 MG/DL (8.3-10.6); CHOLESTEROL RISK RATIO 3.68 (<5); CREATININE FOR GFR 1.31 MG/DL (0.70-1.30); GLOMERULAR FILTRATION RATE 55.1 (>35); HDL CHOLESTEROL 40.7 MG/DL (>40); LDL CHOLESTEROL 79.5 MG/DL (<100); NON-HDL-C 109.3 MG/DL; TOTAL PROTEIN 6.8 G/DL (5.7-8.2); URIC ACID 8.7 MG/DL (3.7-9.2)
== END ==
LOC: M SFHCCAPE 08:28
PROVIDERS: ATTEND Family Medicine
DX: I48.0 Paroxysmal atrial fibrillation (principal); G25.0 Essential tremor; M10.9 Gout, unspecified; I11.9 Hypertensive heart disease without heart failure; E78.2 Mixed hyperlipidemia; N18.31 Chronic kidney disease, stage 3a

== ENCOUNTER → 2024-09-05 | Outpatient (CLI) | payer MEDICARE, OTHER ==
[~2024-09-05] MED LIST changes: +E-Z-GAS II EFFERVESCENT PACKET (SODIUM BICARB./CITRIC ACID/SIMETHICONE) As Ordered ONE; +E-Z-HD 98% w/w 340GM SUSP BTL As Ordered ONE; +E-Z-PAQUE 96% w/w SUSP 176GM BTL As Ordered ONE
== END ==
LOC: M RAD 09:38
PROVIDERS: ATTEND Family Medicine
DX: R13.19 Other dysphagia (principal); K44.9 Diaphragmatic hernia without obstruction or gangrene; K21.9 Gastro-esophageal reflux disease without esophagitis; K22.89 Other specified disease of esophagus

== ENCOUNTER → 2024-12-14 | Outpatient (CLI) | payer MEDICARE, OTHER ==
[~2024-12-14] MED LIST changes: -E-Z-GAS II EFFERVESCENT PACKET (SODIUM BICARB./CITRIC ACID/SIMETHICONE) As Ordered ONE; -E-Z-HD 98% w/w 340GM SUSP BTL As Ordered ONE; -E-Z-PAQUE 96% w/w SUSP 176GM BTL As Ordered ONE
== END ==
LOC: M SLEEP 20:00
PROVIDERS: ATTEND Physician Assistant
DX: G47.33 Obstructive sleep apnea (adult) (pediatric) (principal)

== ENCOUNTER 2025-01-26 21:51 | Day surgery (SDC) | payer MEDICARE, OTHER ==
[~2025-01-26] VITALS: Ht 172.7 cm; Wt 79.4 kg
[~2025-01-26 21:51] MED LIST changes: -AMIO200T49 PO; +AMIO200T54 PO
[2025-01-26 22:37] LABS: BASO % 0.4 % (0.0-1.0); EOS # 0.1 10^3/uL (0.0-0.5); EOS % 1.6 % (0.0-3.0); HEMATOCRIT 47.9 % (42.0-52.0); HEMOGLOBIN 16.7 g/dl (13.5-17.5); LYMPH # 1.6 10^3/uL (1.5-5.0); LYMPH % 18.9 % (24.0-44.0); MEAN CORPUSCULAR HEMOGLOBIN 32.6 pg (27.0-33.0); MEAN CORPUSCULAR HGB CONC 34.9 g/dl (32.0-36.5); MEAN CORPUSCULAR VOLUME 93.6 fl (80.0-96.0); MONO # 0.8 10^3/uL (0.0-0.8); MONO % 9.4 % (2.0-8.0); NEUTROPHILS # 5.8 10^3/uL (1.5-8.5); NEUTROPHILS % 69.1 % (36.0-66.0); PLATELET COUNT, AUTOMATED 152 10^3/uL (150-450); RED BLOOD COUNT 5.12 10^6/uL (4.30-6.10); WHITE BLOOD COUNT 8.4 10^3/uL (4.0-10.0)
[2025-01-26] MEDS: NS 500 ML IV ONE (22:46)
[2025-01-26] MEDS: GLUCAGON INJ 1 MG VIAL IV STA (22:47)
[2025-01-26 22:48] LABS: INR 1.21; PROTHROMBIN TIME 15.6 SECONDS (12.5-14.5)
[2025-01-26 23:37] LABS: CALCIUM LEVEL 9.7 MG/DL (8.3-10.6); CREATININE FOR GFR 1.57 MG/DL (0.70-1.30); GLOMERULAR FILTRATION RATE 42.4 (>35); POTASSIUM SERUM 3.9 MMOL/L (3.5-5.1)
[2025-01-26] MEDS ORDERED: AMLO2.5T3 PO (23:39)
[2025-01-26] MEDS ORDERED: FURO40TA2 PO (23:39)
[2025-01-26] MEDS ORDERED: HOME MED LIST COMPLETE! XX SCH (23:40)
[2025-01-27] MEDS ORDERED: LIDOCAINE 2% 100 MG/5 ML SDV (FOR ANES.) As Ordered ONE (00:50)
[2025-01-27] MEDS ORDERED: propofoL 200 MG/20 ML VIAL As Ordered ONE (00:50)
[2025-01-27] MEDS ORDERED: oxyCODONE 5MG TAB PO PRN (00:55)
[2025-01-27] MEDS ORDERED: ONDANSETRON 4MG 2ML VIAL IV PRN (00:55)
[2025-01-27] MEDS ORDERED: LR 1,000 ML IV SCH (00:55)
[2025-01-27 01:45] VITALS: BP 131/59; TEMP 97.4; O2SAT 94
== END 2025-01-27 01:56 | disposition home or self-care (01) ==
LOC: M ED 21:51 → M SDC 21:52 → M ED 23:09 → M SDC 01-27 01:56 → M ED 01-27 01:56
PROVIDERS: ATTEND Internal Medicine Gastroenterology
DX: T18.108A Unspecified foreign body in esophagus causing other injury, initial encounter (principal); K44.9 Diaphragmatic hernia without obstruction or gangrene; K20.91 Esophagitis, unspecified with bleeding; I48.91 Unspecified atrial fibrillation; I50.22 Chronic systolic (congestive) heart failure; I11.0 Hypertensive heart disease with heart failure; E78.5 Hyperlipidemia, unspecified; Z88.8 Allergy status to other drugs, medicaments and biological substances; Z79.1 Long term (current) use of non-steroidal anti-inflammatories (NSAID); Z79.01 Long term (current) use of anticoagulants; Z79.899 Other long term (current) drug therapy
CPT/HCPCS: 43239; 43247; 43255; 71045; 80048; 85025; 85610; 85730; 88305; 96374; 99284; J1610

== ENCOUNTER → 2025-07-16 | Outpatient (REF) | payer MEDICARE, OTHER ==
[~2025-07-16] MED LIST changes: +AMLO2.5T3 PO; -COLC0.6T47 PO; +COLC0.6T53 PO; +FURO40TA2 PO
[2025-07-16 17:33] LABS: PLATELET COUNT, AUTOMATED 165 10^3/uL (150-450)
[2025-07-16 17:36] LABS: ALT/SGPT 33.0 U/L (7.0-40); AST/SGOT 32.0 U/L (<34); CALCIUM LEVEL 8.8 MG/DL (8.3-10.6); CARBON DIOXIDE LEVEL 31.0 MMOL/L (20-31); CHLORIDE LEVEL 100.0 MMOL/L (98-107); CHOLESTEROL LEVEL 134.0 MG/DL (<200); CHOLESTEROL RISK RATIO 3.66 (<5); CREATININE FOR GFR 1.34 MG/DL (0.70-1.30); GLOMERULAR FILTRATION RATE 51.0 (>35); LDL CHOLESTEROL 70.6 MG/DL (<100); NON-HDL-C 97.4 MG/DL; POTASSIUM SERUM 3.9 MMOL/L (3.5-5.1); SODIUM LEVEL 139.0 MMOL/L (136-145); TRIGLYCERIDES LEVEL 134.0 MG/DL (<150)
== END ==
LOC: M SFHCCAPE 08:28
PROVIDERS: ATTEND Family Medicine
DX: I48.0 Paroxysmal atrial fibrillation (principal); E78.2 Mixed hyperlipidemia; M10.9 Gout, unspecified